=== PATIENT | female | born 1955 | race Caucasian/White ===

== ENCOUNTER 2019-01-09 14:57 | Inpatient (IN) | payer OTHER ==
[2019-01-09] MEDS ORDERED: IPRATROPIUM-ALBUTEROL 3 ML NEB INHALATION STA ×4 (15:20→16:47)
[2019-01-09] MEDS ORDERED: methylPREDNISolone SOD SUCCI 125 MG/2 ML VIAL IV STA (15:20)
[2019-01-09] MEDS ORDERED: SODIUM CHLORIDE 0.9% 1,000 ML IV STA (15:20)
--- NOTE | 2019-01-09 15:23 | ED ---
SOB HPI - General Chief Complaint: Shortness of Breath Stated Complaint: LASHELL Time Seen by Provider: 01/09/19 15:14 Source: patient, RN notes reviewed Mode of arrival: ambulatory Limitations: no limitations - History of Present Illness Initial Comments: This is a 63-year-old female history of asthma who is a smoker usually about one pack per day who states she's had shortness of breath for the past 3-4 days cough with phlegm but she's not sure what color it is she's had chills with this orthopnea and exertional dyspnea. No chest pain palpitations no other symptoms. She states when she gets like this he usually goes from bronchitis into pneumonia. MD Complaint: shortness of breath, cough - Related Data Home Medications Medication Instructions Recorded Confirmed Ibuprofen/Diphenhydramine HCl 1 cap PO HS 01/09/19 01/09/19 [Advil Pm Liqui-Gels] Allergies Allergy/AdvReac Type Severity Reaction Status Date / Time codeine AdvReac Nausea & Verified 01/09/19 15:09 Vomiting fluoxetine [From Prozac] AdvReac Unknown Verified 01/09/19 15:09 Tetracyclines AdvReac Nausea & Verified 01/09/19 15:09 Vomiting Review of Systems ROS Statement: Those systems with pertinent positive or pertinent negative responses have been documented in the HPI. ROS Other: All systems not noted in ROS Statement are negative. Past Medical History Past Medical History: Asthma, Hypertension History of Any Multi-Drug Resistant Organisms: None Reported Past Surgical History: Appendectomy, Back Surgery, Hysterectomy Past Psychological History: Depression Smoking Status: Current every day smoker Past Alcohol Use History: None Reported Past Drug Use History: None Reported General Exam - General Exam Comments Initial Comments: This is a well-developed well-nourished awake alert oriented 3 female Limitations: no limitations General appearance: alert, anxious, in distress Head exam: Present: atraumatic, normocephalic, normal inspection Eye exam: Present: normal appearance, PERRL, EOMI. Absent: scleral icterus, conjunctival injection, periorbital swelling ENT exam: Present: mucous membranes dry Neck exam: Present: normal inspection, full ROM, other (No stridor JVD or b ruits). Absent: tenderness, meningismus, lymphadenopathy Respiratory exam: Present: wheezes, decreased breath sounds Cardiovascular Exam: Present: regular rate, normal rhythm, normal heart sounds. Absent: systolic murmur, diastolic murmur, rubs, gallop, clicks GI/Abdominal exam: Present: soft, normal bowel sounds. Absent: distended, tenderness, guarding, rebound, rigid Extremities exam: Present: normal inspection, full ROM, normal capillary refill. Absent: tenderness, pedal edema, joint swelling, calf tenderness Back exam: Present: normal inspection Neurological exam: Present: alert, oriented X3, CN II-XII intact Psychiatric exam: Present: normal affect, normal mood Skin exam: Present: warm, dry, intact, normal color. Absent: rash Course Vital Signs 01/09/19 01/09/19 01/09/19 15:04 15:49 15:56 Temperature 97.9 F Pulse Rate 88 88 78 Respiratory 20 Rate Blood Pressure 178/90 O2 Sat by Pulse 94 L Oximetry 01/09/19 01/09/19 16:22 16:30 Temperature Pulse Rate 80 84 Respiratory Rate Blood Pressure O2 Sat by Pulse Oximetry - Reevaluation(s) Reevaluation #1: 01/09/19 16:11 The patient on reevaluation states she's feeling no better though on auscultation there is a slight improvement in aeration with some diminution of anterior wheezing. Procedures - Smoking Cessation Time Spent Discussing Smoking Cessation w/Patient (Minutes): 3 Patient Acknowledges Need for Cessation: Yes Medical Decision Making - Medical Decision Making I did discuss findings with patient family members patient will require admission for asthma exacerbation as well as left lower lobe pneumonia and resisting treatment in the emergency department. - Lab Data Result diagrams: 01/09/19 15:47 01/09/19 15:47 Lab Results 01/09/19 01/09/19 01/09/19 Range/Units 15:47 15:47 15:47 WBC 4.0 (3.8-10.6) k/uL RBC 4.81 (3.80-5.40) m/uL Hgb 14.0 (11.4-16.0) gm/dL Hct 41.8 (34.0-46.0) % MCV 86.9 (80.0-100.0) fL MCH 29.1 (25.0-35.0) pg MCHC 33.5 (31.0-37.0) g/dL RDW 14.9 (11.5-15.5) % Plt Count 253 (150-450) k/uL Neutrophils % 63 % Lymphocytes % 23 % Monocytes % 6 % Eosinophils % 4 % Basophils % 2 % Neutrophils # 2.5 (1.3-7.7) k/uL Lymphocytes # 0.9 L (1.0-4.8) k/uL Monocytes # 0.3 (0-1.0) k/uL Eosinophils # 0.1 (0-0.7) k/uL Basophils # 0.1 (0-0.2) k/uL PT (9.0-12.0) sec INR (<1.2) APTT (22.0-30.0) sec Sodium 139 (137-145) mmol/L Potassium 4.1 (3.5-5.1) mmol/L Chloride 104 (98-107) mmol/L Carbon Dioxide 24 (22-30) mmol/L Anion Gap 11 mmol/L BUN 10 (7-17) mg/dL Creatinine 0.91 (0.52-1.04) mg/dL Est GFR (CKD-EPI)AfAm 78 (>60 ml/min/1.73 sqM) Est GFR (CKD-EPI)NonAf 67 (>60 ml/min/1.73 sqM) Glucose 106 H (74-99) mg/dL Calcium 9.2 (8.4-10.2) mg/dL Magnesium 2.2 (1.6-2.3) mg/dL Total Bilirubin 0.7 (0.2-1.3) mg/dL AST 49 H (14-36) U/L ALT 55 H (9-52) U/L Alkaline Phosphatase 124 (38-126) U/L NT-Pro-B Natriuret Pep 54 pg/mL Total Protein 7.7 (6.3-8.2) g/dL Albumin 4.4 (3.5-5.0) g/dL 01/09/19 Range/Units 15:47 WBC (3.8-10.6) k/uL RBC (3.80-5.40) m/uL Hgb (11.4-16.0) gm/dL Hct (34.0-46.0) % MCV (80.0-100.0) fL MCH (25.0-35.0) pg MCHC (31.0-37.0) g/dL RDW (11.5-15.5) % Plt Count (150-450) k/uL Neutrophils % % Lymphocytes % % Monocytes % % Eosinophils % % Basophils % % Neutrophils # (1.3-7.7) k/uL Lymphocytes # (1.0-4.8) k/uL Monocytes # (0-1.0) k/uL Eosinophils # (0-0.7) k/uL Basophils # (0-0.2) k/uL PT 10.1 (9.0-12.0) sec INR 0.9 (<1.2) APTT 25.0 (22.0-30.0) sec Sodium (137-145) mmol/L Potassium (3.5-5.1) mmol/L Chloride (98-107) mmol/L Carbon Dioxide (22-30) mmol/L Anion Gap mmol/L BUN (7-17) mg/dL Creatinine (0.52-1.04) mg/dL Est GFR (CKD-EPI)AfAm (>60 ml/min/1.73 sqM) Est GFR (CKD-EPI)NonAf (>60 ml/min/1.73 sqM) Glucose (74-99) mg/dL Calcium (8.4-10.2) mg/dL Magnesium (1.6-2.3) mg/dL Total Bilirubin (0.2-1.3) mg/dL AST (14-36) U/L ALT (9-52) U/L Alkaline Phosphatase (38-126) U/L NT-Pro-B Natriuret Pep pg/mL Total Protein (6.3-8.2) g/dL Albumin (3.5-5.0) g/dL - EKG Data -: EKG Interpreted by Ca EKG shows normal: sinus rhythm (EKG shows normal sinus rhythm 87 DE interval 208 QRS duration 110 QT since QTC 14/[address]-t wave changes seen. S ome artifact is present.) - Radiology Data Radiology results: report reviewed (Review the imaging reveals left lower lobe infiltrate.), image reviewed Critical Care Time Critical Care Time: Yes Critical Care Time: 35 minutes of critical care time includes initial presentation with history phys ical labs x-rays multiple reevaluation patient responsive therapy discussion with the beta physician Dr. Gunartnam, documentation of the above and admission orders. Disposition Clinical Impression: Acute exacerbation of chronic obstructive airways disease, Adult respiratory distress syndrome, Left lower lobe pneumonia Disposition: ADMITTED IP TO THIS HOSP Condition: Serious Referrals: None,Stated [Primary Care Provider] - 1-2 days
[2019-01-09 16:00] LABS: Basophils # (A) 0.1 k/uL (0-0.2); Basophils % (A) 2 %; Eosinophils # (A) 0.1 k/uL (0-0.7); Eosinophils % (A) 4 %; HCT 41.8 % (34.0-46.0); Lymphocytes # (A) 0.9 k/uL (1.0-4.8); Lymphocytes % (A) 23 %; MCH 29.1 pg (25.0-35.0); MCHC 33.5 g/dL (31.0-37.0); MCV 86.9 fL (80.0-100.0); Mean Platelet Volume 6.9; Monocytes # (A) 0.3 k/uL (0-1.0); Monocytes % (A) 6 %; Neutrophils # (A) 2.5 k/uL (1.3-7.7); Neutrophils % (A) 63 %; Platelet Count 253 k/uL (150-450); RBC 4.81 m/uL (3.80-5.40); RDW 14.9 % (11.5-15.5)
[2019-01-09 16:11] LABS: Albumin 4.4 g/dL (3.5-5.0); Calcium 9.2 mg/dL (8.4-10.2); Magnesium 2.2 mg/dL (1.6-2.3); Potassium 4.1 mmol/L (3.5-5.1); Total Bilirubin 0.7 mg/dL (0.2-1.3); Total Protein 7.7 g/dL (6.3-8.2)
[2019-01-09 16:12] LABS: INR 0.9 (<1.2); Prothrombin Time 10.1 sec (9.0-12.0)
--- NOTE | 2019-01-09 16:29 | XR ---
EXAMINATION TYPE: XR chest 2V DATE OF EXAM: 01/09/2019 COMPARISON: NONE HISTORY: Difficulty breathing, cough TECHNIQUE: Frontal and lateral views of the chest are obtained. FINDINGS: Patchy density present within the left midlung. No evident pneumothorax or pleural effusio n. Cardiac mediastinal silhouette, pulmonary vascularity and ryan within normal limits. The aorta is dense. Prominent lung volume may be indicative of COPD. IMPRESSION: Correlate for possible left lower lobe pneumonia. Follow-up suggested.
[2019-01-09] MEDS ORDERED: MAGNESIUM SULFATE-D5W PMX 1 GM in DEXTROSE/WATER 1 100ML.BAG IVPB ONE (16:45)
[2019-01-09] MEDS ORDERED: PNEUMONIA PROTOCOL UTILIZED 1 EACH MISC PO PRN (16:50)
[2019-01-09] MEDS ORDERED: AZITHROMYCIN 500 MG in SODIUM CHLORIDE 0.9% 250 ML IVPB STA (16:50)
[2019-01-09] MEDS: SODIUM CHLORIDE 0.9% 1,000 ML IV SCH (17:25)
[2019-01-09] MEDS ORDERED: NALOXONE 0.4 MG/ML 1 ML VIAL IV PRN (17:41)
[2019-01-09] MEDS ORDERED: ACETAMINOPHEN TAB 325 MG TAB PO PRN (17:41)
[2019-01-09] MEDS ORDERED: HYDROcodone/APAP 5-325MG 1 EACH TAB PO PRN (17:41)
--- NOTE | 2019-01-09 17:59 | P.HPIM ---
History of Present Illness H&P Date: 01/09/19 Chief Complaint: Shortness of breath, cough 63 year old female with PMH of Asthma and hypertension presents to the emergency room for cough and shortness of breath. Patient reports symptoms of a wet cough, nasal congestion and rhinorrhea for the past 4 days. Patient reports that symptoms were persistent leading into today, which prompted her to come to the emergency room. Patient is unable to produce any sputum. Patient reports intermittent lower extremity swelling, itchy ears and chills that has been ongoing for the same period of time. She denies headache, nausea, vomiting, palpitations, chest pain, changes in urination or bowel habits. Patient denies any dizziness, numbness/weakness/tingling of the extremities. Of note, patient reports smoking 1-1/2 packs of cigarettes daily for the past 50 years. She denies any alcohol or illicit drug use. In the ED, CBC was unremarkable. Coag is panel was negative. CMP showed a glucose 106, AST of 48 and ELT 55. Initial troponin was less than 0.012, EKG showing normal sinus rhythm with prolonged QT. Chest x-ray showing left lower lobe pneumonia. Patient is admitted for COPD exacerbation and treatment of pn eumonia. Pulmonology is on board. Review of Systems All systems: negative Past Medical History Past Medical History: Asthma, Hypertension History of Any Multi-Drug Resistant Organisms: None Reported Past Surgical History: Appendectomy, Back Surgery, Hysterectomy Past Psychological History: Depression Smoking Status: Current every day smoker Past Alcohol Use History: None Reported Past Drug Use History: None Reported Medications and Allergies Home Medications Medication Instructions Recorded Confirmed Type Ibuprofen/Diphenhydramine HCl 1 cap PO HS 01/09/19 01/09/19 History [Advil Pm Liqui-Gels] Allergies Allergy/AdvReac Type Severity Reaction Status Date / Time codeine AdvReac Nausea & Verified 01/09/19 15:09 Vomiting fluoxetine [From Prozac] AdvReac Unknown Verified 01/09/19 15:09 Tetracyclines AdvReac Nausea & Verified 01/09/19 15:09 Vomiting Physical Exam Vitals: Vital Signs Temp Pulse Resp BP Pulse Ox 01/09/19 16:30 84 01/09/19 16:22 80 01/09/19 15:56 78 01/09/19 15:49 88 01/09/19 15:04 97.9 F 88 20 178/90 94 L Intake and Output 01/09/19 01/09/19 01/09/19 06:59 14:59 22:59 Other: Weight 96.207 kg General: [non toxic], [dyspneic, speaking in 2 word sentences], [appears at stated age] Derm: [warm], [dry] Head: [atraumatic], [normocephalic], [symmetric] Eyes: [EOMI], [no lid lag], [anicteric sclera] Mouth: [no lip lesion], [mucus membranes moist] Cardiovascular: [S1S2 reg], [no murmur], [positive posterior tibial pulse bilateral], Lungs: [Decreased breath sounds bilateral with poor air entry, end expiratory wheezing], [no rhonchi, no rales] , [no accessory muscle use] Abdominal: [soft], [ nontender to palpation], [no guarding], [no appreciable organomegaly] Ext: [no gross muscle atrophy], [no edema], [no contractures] Neuro: [ CN II-XI grossly intact], [no focal neuro deficits] Psych: [Alert], [oriented], [appropriate affect] Results CBC & Chem 7: 01/09/19 15:47 01/09/19 15:47 Labs: Abnormal Lab Results - Last 24 Hours (Table) 01/09/19 01/09/19 Range/Units 15:47 15:47 Lymphocytes # 0.9 L (1.0-4.8) k/uL Glucose 106 H (74-99) mg/dL AST 49 H (14-36) U/L ALT 55 H (9-52) U/L Thrombosis Risk Factor Assmnt - Choose All That Apply Any of the Below Risk Factors Present?: Yes Each Factor Represents 1 point: Abnormal pulmonary function (COPD), Obesity (BMI >25) Other Risk Factors: Yes Each Risk Factor Represents 2 Points: Age 61-74 years Thrombosis Risk Factor Assessment Total Risk Factor Score: 4 Thrombosis Risk Factor Assessment Level: Moderate Risk Assessment and Plan Assessment: Assessment and Plan 1. COPD exacerbation likely secondary to community acquired pneumonia 2. Community acquired pneumonia 3. Elevated liver enzymes 1. History of cigarette smoking, likely secondary to pneumonia. Patient is a febrile with no leukocytosis. Influenza negative. Chest x-ray shows concerns for left lower lobe pneumonia. Start DuoNeb treatments 4 times a day scheduled and as needed for shortness of breath and wheezing. Continue Solu-Medrol 60 mg IV every 6 hours. Oxygen per nasal cannula to maintain an oxygen saturation greater than 92%. Start IV antibiotics. Follow pulmonology consult. 2. As seen on chest x-ray. Start IV Rocephin with azithromycin by mouth. Tylenol as needed for fever. Start Mucinex for congestion. Will follow blood culture, sputum culture. Follow chest x-ray in the morning. 3. AST 49, ALTs 55. Unknown etiology. Possible hepatic congestion but less likely due to normal BNP. Will follow echocardiogram results. Patient admitted for COPD exacerbation, supplemental oxygen and for treatment of community acquired pneumonia. Pulmonology is on consult. She is pending c jollyical improvement.
[2019-01-09 19:15] VITALS: BMI 35.3
[2019-01-09] MEDS: IPRATROPIUM-ALBUTEROL 3 ML NEB INHALATION SCH ×2 (20:16→23:36)
[2019-01-09] MEDS: guaiFENesin 600 MG TABLET.ER PO SCH (20:42)
[2019-01-09] MEDS: methylPREDNISolone SOD SUCCI 125 MG/2 ML VIAL IV SCH ×2 (20:42→23:17)
[2019-01-09] MEDS: diphenhydrAMINE 25 MG CAP PO SCH (20:42)
[2019-01-09] MEDS: IBUPROFEN 200 MG TAB PO SCH (20:43)
[2019-01-09] MEDS: cloNIDine HCL 0.1 MG TAB PO PRN (21:35)
[2019-01-10] MEDS: IPRATROPIUM-ALBUTEROL 3 ML NEB INHALATION SCH ×5 (03:51→19:48)
[2019-01-10] MEDS: cloNIDine HCL 0.1 MG TAB PO PRN ×2 (05:32→22:04)
[2019-01-10] MEDS: methylPREDNISolone SOD SUCCI 125 MG/2 ML VIAL IV SCH ×4 (05:32→23:43)
[2019-01-10] MEDS: SODIUM CHLORIDE 0.9% 1,000 ML IV SCH ×2 (05:33→20:56)
[2019-01-10] MEDS: guaiFENesin 600 MG TABLET.ER PO SCH ×2 (07:19→20:55)
[2019-01-10] MEDS: AZITHROMYCIN 500 MG TAB PO SCH (07:21)
--- NOTE | 2019-01-10 08:21 | XR ---
EXAMINATION TYPE: XR chest 2V DATE OF EXAM: 01/10/2019 COMPARISON: 01/09/2019 HISTORY: Shortness of breath TECHNIQUE: Frontal and lateral views of the chest are obtained. FINDINGS: Scattered senescent parenchymal changes noted. Hyperinflation compatible with COPD. There is nodular density left midlung zone. While this may reflect pneumonia nodule of other etiology is not excluded. Recommend CT chest for further evaluation. Heart size is stable. Mediastinal structures are stable and grossly unremarkable. No evidence for hilar prominence. Degenerative changes dorsal spine. IMPRESSION: 1. There is nodular density left midlung zone. While this may reflect pneumonia nodule of other etiol ogy is not excluded. Recommend CT chest for further evaluation.
[2019-01-10 08:27] LABS: Basophils % (A) 0 %; Eosinophils % (A) 0 %; HCT 40.9 % (34.0-46.0); HGB 13.5 gm/dL (11.4-16.0); Lymphocytes # (A) 0.6 k/uL (1.0-4.8); Lymphocytes % (A) 9 %; MCH 29.4 pg (25.0-35.0); MCHC 32.9 g/dL (31.0-37.0); MCV 89.2 fL (80.0-100.0); Mean Platelet Volume 7.1; Monocytes # (A) 0.1 k/uL (0-1.0); Monocytes % (A) 2 %; Neutrophils # (A) 5.5 k/uL (1.3-7.7); Neutrophils % (A) 88 %; Platelet Count 278 k/uL (150-450); RBC 4.58 m/uL (3.80-5.40); RDW 14.8 % (11.5-15.5); WBC 6.3 k/uL (3.8-10.6)
[2019-01-10 08:46] LABS: Anion Gap 13 mmol/L; Blood Urea Nitrogen 11 mg/dL (7-17); Calcium 8.9 mg/dL (8.4-10.2); Carbon Dioxide 19 mmol/L (22-30); Chloride 104 mmol/L (98-107); Glucose 260 mg/dL (74-99); Magnesium 2.2 mg/dL (1.6-2.3); Potassium 4.8 mmol/L (3.5-5.1); Sodium 136 mmol/L (137-145)
--- NOTE | 2019-01-10 09:21 | ECHOF ---
Referral Reason:SOB MEASUREMENTS -------- HEIGHT: 165.1 cm WEIGHT: 96.2 kg BP: 128/54 IVSd: 0.9 cm (0.6 - 1.1) LVIDd: 4.5 cm (3.9 - 5.3) LVPWd: 1.1 cm (0.6 - 1.1) IVSs: 1.7 cm LVIDs: 2.4 cm LVPWs: 1.8 cm IVSd: 1.2 cm (0.6 - 1.1) LVIDd: 3.3 cm (3.9 - 5.3) LVPWd: 1.1 cm (0.6 - 1.1) IVSs: 1.6 cm LVIDs: 2.0 cm LVPWs: 1.3 cm EDV(Teich): 44 ml ESV(Teich): 14 ml EF(Teich): 69 % %FS: 38 % SV(Teich): 31 ml Ao Diam: 3.0 cm (2.0 - 3.7) AV Cusp: 2.1 cm (1.5 - 2.6) LA Diam: 2.5 cm (2.7 - 3.8) MV E Zander: 1.13 m/s MV DecT: 194 ms MV A Zander: 0.22 m/s MV E/A Ratio: 5.11 RAP: 5.00 mmHg RVSP: 10.17 mmHg FINDINGS -------- Sinus rhythm. This was a technically difficult study with suboptimal views. The left ventricular size is normal. Left ventricular wall thickness is normal. Overall left vent ricular systolic function is normal with, an EF between 55 - 60 %. The right ventricle is normal in size. The left atrium was not well visualized. The right atrium was not well visualized. 1.5mg of Definity was utilized for enhancement of images The aortic valve was not well visualized. The mitral valve was not well visualized. The tricuspid valve was not well visualized. The pulmonic valve was not well visualized. The aortic root size is normal. There is no pericardial effusion. CONCLUSIONS -------- 1. Sinus rhythm. 2. This was a technically difficult study with suboptimal views. 3. The left ventricular size is normal. 4. Left ventricular wall thickness is normal. 5. Overall left ventricular systolic function is normal with, an EF between 55 - 60 %. 6. The left atrium was not well visualized. 7. 1.5mg of Definity was utilized for enhancement of images 8. The aortic valve was not well visualized. 9. The mitral valve was not well visualized. 10. The tricuspid valve was not well visualized. 11. The pulmonic valve was not well visualized. 12. The aortic root size is normal. 13. There is no pericardial effusion. DOGGER: Tran Alcocer RDCS
--- NOTE | 2019-01-10 10:33 | P.PN ---
Subjective Progress Note Date: 01/10/19 Principal diagnosis: COPD exacerbation, pneumonia Patient was seen and examined. No acute events overnight. Patient reports improvement in her breathing since admission. She does complain of dyspnea with ambulation to the bathroom. Patient continues to complain of cough as well. She denies any chest pain or palpitations. No nausea or vomiting. No fever or chills. Objective - Vital Signs Vital signs: Vital Signs Temp 97.3 F L 01/10/19 05:36 Pulse 89 01/10/19 08:00 Resp 16 01/10/19 08:00 BP 128/54 01/10/19 06:08 Pulse Ox 94 L 01/10/19 05:36 Intake & Output 01/09/19 01/10/19 01/10/19 18:59 06:59 18:59 Weight 96.207 kg Other: # Voids 4 - Exam General: [non toxic], [breathing nonlabored], [appears at stated age] Derm: [warm], [dry] Head: [atraumatic], [normocephalic], [symmetric] Eyes: [EOMI], [no lid lag], [anicteric sclera] Mouth: [no lip lesion], [mucus membranes moist] Cardiovascular: [S1S2 reg], [no murmur], [positive DP pulse bilateral], Lungs: [Decreased breath sounds bilateral with poor air entry worse on the left side, end expiratory wheezing], [no rhonchi, no rales] , [no accessory muscle use] Abdominal: [soft], [ nontender to palpation], [no guarding], [no appreciable organomegaly] Ext: [no gross muscle atrophy], [no edema], [no contractures] Neuro: [no focal neuro deficits] Psych: [Alert], [oriented], [appropriate affect] - Labs CBC & Chem 7: 01/10/19 06:55 01/10/19 06:55 Labs: Abnormal Lab Results - Last 24 Hours (Table) 01/09/19 01/09/19 01/10/19 Range/Units 15:47 15:47 06:55 Lymphocytes # 0.9 L 0.6 L (1.0-4.8) k/uL Sodium (137-145) mmol/L Carbon Dioxide (22-30) mmol/L Glucose 106 H (74-99) mg/dL AST 49 H (14-36) U/L ALT 55 H (9-52) U/L 01/10/19 Range/Units 06:55 Lymphocytes # (1.0-4.8) k/uL Sodium 136 L (137-145) mmol/L Carbon Dioxide 19 L (22-30) mmol/L Glucose 260 H (74-99) mg/dL AST (14-36) U/L ALT (9-52) U/L Assessment and Plan Assessment: Assessment and Plan 1. COPD exacerbation likely secondary to community acquired pneumonia 2. Community acquired pneumonia 3. Elevated liver enzymes 1. History of cigarette smoking, likely secondary to pneumonia. Patient is a febrile with no leukocytosis. Influenza negative. Chest x-ray shows concerns for left lower lobe pneumonia, possible nodular density seen in the left mid lung recommending CT chest. Continue DuoNeb treatments 4 times a day scheduled and as needed for shortness of breath and wheezing. Continue Solu-Medrol 60 mg IV every 6 hours. Oxygen per nasal cannula to maintain an oxygen saturation greater than 92%. Continue IV antibiotics. Follow pulmonology consult. 2. As seen on chest x-ray. Continue IV Rocephin with azithromycin by mouth. Tylenol as needed for fever. Continue Mucinex for congestion. Will follow blood culture, sputum culture. Will discuss with pulmonology the necessity of CT chest. 3. AST 49, ALTs 55. Unknown etiology. Possible hepatic congestion but less likely due to normal BNP. Echocardiogram shows EF of 55-60%. Follow acute hep panel, lipid panel. Patient admitted for COPD exacerbation, supplemental oxygen and for treatment of community acquired pneumonia. Pulmonology is on consult. She is pending clinical improvement. Likely DC in 1-2 days.
[2019-01-10 11:36] LABS: Glucose,Whole Blood 272 mg/dL (75-99)
[2019-01-10] MEDS ORDERED: RX INFO: IV CONTRAST WAS GIVEN 1 EACH MISC MISCELLANE PRN (12:06)
[2019-01-10] MEDS: INSULIN ASPART (NovoLOG) 100 UNIT/ML VIAL SQ SCH ×3 (12:27→20:57)
--- NOTE | 2019-01-10 13:20 | CT ---
EXAMINATION TYPE: CT chest w con DATE OF EXAM: 01/10/2019 COMPARISON: None HISTORY: Abnormal CXR per patient CT DLP: 491.3 mGycm Automated exposure control for dose reduction was used. CONTRAST: CT scan of the chest is performed with IV Contrast, patient injected with 100 mL of Isovue 300. FINDINGS: LUNGS: Spiculated mass within the region of the lingula measures 2.1 x 1.9 cm. Minimal pleural extens ion noted. No additional nodules appreciated. Linear parenchymal scarring right middle lobe as well a s left lung base. No focal consolidation. MEDIASTINUM: AP window lymph node measures 10.4 mm. No additional adenopathy greater than 1 cm. No pericardial effusion is seen. Thoracic aorta is of normal caliber. The heart is not enlarged. UPPER ABDOMEN: Fatty liver as well as cholelithiasis. OTHER: No additional significant abnormality is seen. IMPRESSION: 1. Spiculated lingular mass. 2. AP window lymph node measures 10.4 mm. No additional adenopathy greater than 1 cm.
[2019-01-10] MEDS ORDERED: IPRATROPIUM-ALBUTEROL 3 ML NEB INHALATION PRN (14:42)
--- NOTE | 2019-01-10 16:06 | CONS ---
CONSULTATION DATE OF SERVICE: 01/10/2019 This is a consultation dated January 10, 2019 This is a 63-year-old smoker with history Of COPD/asthma. The patient presented to the emergency room where she saw Dr. Anand Turner. She apparently came with complaints of increasing shortness of breath. In addition, she was coughing and producing phlegm and wheezing. She also had chills without fever. She denies any chest pain or chest discomfort. There were no palpitations. No nausea, vomiting or diarrhea. She states that she is down to 4 to 6 cigarettes a day. She has been smoking for many years. She apparently was hospitalized in the distant past at [facility]. She is hoping that Dr. Martinez will take her back as a patient. She used to see Dr. Martinez some 12 years ago, but she lost her insurance in the divorce and she never really has been seeing any doctor in the last 12 years or so. The only inhaler she has is a Ventolin HFA inhaler. Not sure where she actually got it. She does smoke as I mentioned above. The patient was sitting at the bedside. She was playing some sort of video game when we walked into the room. Some family members were there before we came into the room and they left as we were going in to see the patient. HOME MEDICATIONS: Include primarily ibuprofen and a rescue inhaler. ALLERGIES: INCLUDE PROZAC AND TETRACYCLINES. MEDICAL HISTORY: Is apparently positive for hypertension, although she takes no medications for hypertension and COPD/asthma. The only medication she really takes is Ventolin and Motrin. SURGICAL HISTORY: Includes appendectomy, back surgery, and hysterectomy. SOCIAL HISTORY: Positive for ongoing tobacco use. She denies any alcohol use or illicit drug use. Family history is not mentioned. REVIEW OF SYSTEMS: Constitutional: Negative. Neurologic: Negative. HEENT negative. Cardiovascular negative. PULMONARY: Shortness of breath. Chest tightness and wheezing. Cough and phlegm production. GI negative: negative: Rheumatologic negative. Immunologic negative and endocrinologic negative. PHYSICAL EXAMINATION: Current vital signs include a temperature 97.3, heart rate 78, respiratory rate 16, blood pressure 171/76, mean 107, room-air saturation 96%. Appears in no acute distress. No audible wheezing. No use of accessory muscles. No conversational dyspnea. HEENT examination is grossly unremarkable. NECK: Supple. Full range of motion. No adenopathy or thyromegaly. No neck vein distention. Cardiovascular examination reveals regular rhythm rate. Heart rate 78. S1, S2 normal. No S3, S4, murmur. LUNGS: Reveal occasional expiratory rhonchi and wheezes. Breath sounds are diminished. Slight prolongation on forced maneuver. No crackles. ABDOMEN: Obese. Bowel sounds are heard. Extremities are intact. No cyanosis, clubbing, or edema. Skin without rash. Neurologic examination is brief but nonfocal. LABS: Reviewed. White count 6.3, hemoglobin 13.5, hematocrit 40.9, platelet count 378,000. PT/INR PTT all normal. Sodium 136, potassium 4.8, chloride 104, CO2 of 19, anion gap is 13, BUN and creatinine were 11 and 0.77, sugar 272, AST 49, ALT 55. Influenza studies were negative. Troponin was less than 0.012. N terminal proBNP was only 54. Two chest x-rays show changes of COPD and vague infiltrate/abnormality in the left mid lung. We ordered a CT scan which shows spiculated mass in the lingula. It is about 21 x 18 mm in size. There is one 11 mm lymph node, but other than that the rest of the mediastinum and hilar areas look to be normal. The mass itself appears to be early bronchogenic carcinoma as it is somewhat spiculated. Medications are reviewed. We will make sure the patient is on appropriate medications including an oral antibiotic, steroid, updrafts, and Pulmicort along with formoterol. ASSESSMENT: 1. Chronic obstructive pulmonary disease exacerbation complicated by purulent tracheobronchitis, without alina pneumonia. 2. Ongoing tobacco use with nicotine addiction. 3. Spiculated lingular mass measuring about 21 x 18 mm in size and likely representing a bronchogenic carcinoma. 4. History of hypertension, although patient is not on any blood pressure medications. 5. No medical treatments for at least 12 years. 6. Multiple previous surgeries. PLAN: Please see my orders. Additional recommendations and suggestions are forthcoming. We will likely recommend outpatient PET scan. Prognosis is guarded. Patient continues to smoke. Should have a nicotine patch. I will review the medications and make appropriate adjustments. The patient is currently on ceftriaxone and Zithromax and she could probably be managed just with an oral antibiotic. Please see my orders. Follow up in the office post discharge. We will let her know of the findings on CT scan either later today or tomorrow. MMMABELL / IJN: [id number] /
[2019-01-10 17:01] LABS: Glucose,Whole Blood 203 mg/dL (75-99)
[2019-01-10] MEDS: SYMBICORT 160-4.5 MCG INHALER INHALATION SCH (19:47)
[2019-01-10 20:12] LABS: Glucose,Whole Blood 303 mg/dL (75-99)
[2019-01-10] MEDS: diphenhydrAMINE 25 MG CAP PO SCH (20:56)
[2019-01-10] MEDS: IBUPROFEN 200 MG TAB PO SCH (20:56)
[2019-01-10] MEDS ORDERED: INSULIN ASPART (NovoLOG) 100 UNIT/ML VIAL SQ ONE (23:10)
[2019-01-10 23:15] LABS: Glucose,Whole Blood 253 mg/dL (75-99)
[2019-01-11 04:11] LABS: Glucose,Whole Blood 204 mg/dL (75-99)
[2019-01-11] MEDS: cloNIDine HCL 0.1 MG TAB PO PRN (05:21)
[2019-01-11] MEDS: methylPREDNISolone SOD SUCCI 125 MG/2 ML VIAL IV SCH (05:23)
[2019-01-11] MEDS: SODIUM CHLORIDE 0.9% 1,000 ML IV SCH (05:44)
[2019-01-11 07:08] LABS: Glucose,Whole Blood 201 mg/dL (75-99)
[2019-01-11] MEDS: SYMBICORT 160-4.5 MCG INHALER INHALATION SCH (07:11)
[2019-01-11] MEDS: IPRATROPIUM-ALBUTEROL 3 ML NEB INHALATION SCH ×2 (07:14→11:02)
[2019-01-11] MEDS: INSULIN ASPART (NovoLOG) 100 UNIT/ML VIAL SQ SCH ×2 (08:25→13:07)
[2019-01-11] MEDS: guaiFENesin 600 MG TABLET.ER PO SCH (08:25)
[2019-01-11] MEDS: AZITHROMYCIN 500 MG TAB PO SCH (08:25)
[2019-01-11 09:04] LABS: Cholesterol 223 mg/dL (<200); HDL Cholesterol 38 mg/dL (40-60); LDL Cholesterol,Calculated 137 mg/dL (0-99); Triglycerides 238 mg/dL (<150)
[2019-01-11 11:19] LABS: Glucose,Whole Blood 266 mg/dL (75-99)
--- NOTE | 2019-01-11 12:51 | P.PN ---
Subjective Progress Note Date: 01/11/19 Principal diagnosis: Acute exacerbation of chronic obstructive pulmonary disease complicated by purulent tracheobronchitis. The patient is seen today in follow-up on the regular medical floor. She is awake and alert in no acute distress. She's been up ambulating in her room wi thout complications. No worsening shortness of breath cough or congestion. She is maintaining O2 saturations in the 90s on room air. She's been afebrile. Somewhat hypertensive. Blood cultures reveal no growth. She is continued on DuoNeb inhalations, Symbicort, IV Solu-Medrol, empiric antibiotics in the form of azithromycin. Computed tomography scan of the chest did reveal a 2.1 x 1.9 cm spiculated mass in the lingula. Objective - Vital Signs Vital signs: Vital Signs Temp 97.5 F L 01/11/19 05:00 Pulse 70 01/11/19 08:30 Resp 16 01/11/19 08:00 BP 174/94 01/11/19 08:30 Pulse Ox 91 L 01/11/19 05:00 Intake & Output 01/10/19 01/11/19 01/11/19 18:59 06:59 18:59 Intake Total 590 Balance 590 Intake: Oral 590 Other: # Voids 3 2 - Exam GENERAL EXAM: Alert, active, comfortable in no apparent distress. On room air. HEAD: Normocephalic. EYES: Normal reaction of pupils, equal size. NOSE: Clear with pink turbinates. THROAT: No erythema or exudates. NECK: No masses, no JVD. CHEST: No chest wall deformity. LUNGS: Equal air entry with end expiratory wheeze, diminished. CVS: S1 and S2 normal with no audible murmur, regular rhythm. ABDOMEN: No hepatosplenomegaly, normal bowel sounds, no guarding or rigidity. SPINE: No scoliosis or deformity SKIN: No rashes CENTRAL NERVOUS SYSTEM: No focal deficits, tone is normal in all 4 extremities. EXTREMITIES: There is no peripheral edema. No clubbing, no cyanosis. Peripheral pulses are intact. - Labs CBC & Chem 7: 01/10/19 06:55 01/10/19 06:55 Labs: Abnormal Lab Results - Last 24 Hours (Table) 01/10/19 01/10/19 01/10/19 Range/Units 17:00 20:11 23:04 POC Glucose (mg/dL) 203 H 303 H 253 H (75-99) mg/dL Triglycerides (<150) mg/dL Cholesterol (<200) mg/dL LDL Cholesterol, Calc (0-99) mg/dL HDL Cholesterol (40-60) mg/dL 01/11/19 01/11/19 01/11/19 Range/Units 04:09 07:05 08:35 POC Glucose (mg/dL) 204 H 201 H (75-99) mg/dL Triglycerides 238 H (<150) mg/dL Cholesterol 223 H (<200) mg/dL LDL Cholesterol, Calc 137 H (0-99) mg/dL HDL Cholesterol 38 L (40-60) mg/dL 01/11/19 Range/Units 11:16 POC Glucose (mg/dL) 266 H (75-99) mg/dL Triglycerides (<150) mg/dL Cholesterol (<200) mg/dL LDL Cholesterol, Calc (0-99) mg/dL HDL Cholesterol (40-60) mg/dL Microbiology - Last 24 Hours (Table) 01/09/19 15:47 Blood Culture - Preliminary Blood No Growth after 24 hours Assessment and Plan Assessment: Impression: #1 Acute exacerbation of chronic obstructive pulmonary disease, complicated by. Tracheobronchitis. #2 Chronic and ongoing tobacco dependence. #3 Spiculated mass within the region of the lingula measuring 2.1 x 1.9 cm. The plan is for biopsy in the outpatient setting. #4 Hypertension. #5 Hyperglycemia, steroid induced. #6 No healthcare follow-up in the past 12 years. Plan: The patient was seen and evaluated by Dr. Olivas. We will plan for PET scan in the outpatient setting and probable navigational bronchoscopy with biopsy of the spiculated mass of the lingula. This was discussed with the patient at the bedside. She is agreeable to the plan. She could be discharged home from the pulmonary standpoint. Complete a course of antibiotics. Continue with bronchodilators. We'll discontinue steroids for now. Blood pressure control. Glucose control. She'll follow-up in our office in 1 week's time. She is encouraged to call sooner with any recurrence of symptoms or other questions or concerns. I, the cosigning physician, performed a history & physical examination of the patient. Lungs sounds faint end expiratory wheeze, diminished. Maintaining good O2 saturations in the 90s on room air. I discussed the assessment and plan of care with my nurse practitioner, Cora Casarez. I attest to the above note as dictated by her.
[2019-01-11 13:24] VITALS: BP 184/81; RESP 18; TEMP 97.4
--- NOTE | 2019-01-11 14:24 | P.DS ---
Providers Date of admission: 01/09/19 16:50 Expected date of discharge: 01/11/19 Attending physician: Goldie Engel MD Consults: 01/09/19 17:44 Consult Physician Stat Consulting Provider: Silvia Laguerre Consult Reason/Comments: COPD exacerbation, LLL PNA Do you want consulting provider notified?: Yes Primary care physician: Stated None Hospital Course: 63 year old female with PMH of Asthma and hypertension presents to the emergency room for cough and shortness of breath. Patient reports symptoms of a wet cough, nasal congestion and rhinorrhea for the past 4 days. Patient reports that symptoms were persistent leading into today, which prompted her to come to the emergency room. Patient is unable to produce any sputum. Patient reports intermittent lower extremity swelling, itchy ears and chills that has been ongoing for the same period of time. She denies headache, nausea, vomiting, palpitations, chest pain, changes in urination or bowel habits. Patient denies any dizziness, numbness/weakness/tingling of the extremities. Of note, patient reports smoking 1-1/2 packs of cigarettes daily for the past 50 years. She denies any alcohol or illicit drug use. In the ED, CBC was unremarkable. Coag is panel was negative. CMP showed a glucose 106, AST of 48 and ELT 55. Initial troponin was less than 0.012, EKG showing normal sinus rhythm with prolonged QT. Chest x-ray showing left lower lobe pneumonia. Patient is admitted for COPD exacerbation and treatment of pneumonia. Pulmonology is on board. with regard to her COPD exacerbation was thought to be secondary to her history of severe smoking and secondary to pneumonia. Patient was afebrile with no leukocytosis. Influenza test was negative. Chest x-ray showed concerns for left lower lobe pneumonia and a possible nodular density seen in the left mid lung, recommending CT of the chest. Patient was treated with DuoNeb treatments 4 times a day scheduled and as needed for shortness of breath and wheezing. Patient was initially started on Solu-Medrol IV which was discontinued prior to discharge. She was given oxygen per nasal cannula to maintain an oxygen saturation greater than 92%. Patient was initially started on IV Rocephin and azithromycin by mouth for treatment of community acquired pneumonia. Pulmonology was consulted and recommended adding Mucinex for congestion and to obtain a CT of the chest.CT of the chest shows a spiculated lung mass that is suspicious for bronchogenic carcinoma. Pulmonology recommended outpatient follow-up in order to obtain biopsy and additional imaging studies. Patient was seen and examined prior to discharge. No acute events overnight. Patient reports improvement in her breathing. She continues to complain a cough productive of clear sputum. She denies any chest pain or palpitations. No nausea or vomiting. No fever or chills. Results discussed with son and patient at bedside. General: [non toxic], [breathing nonlabored], [appears at stated age] Derm: [warm], [dry] Head: [atraumatic], [normocephalic], [symmetric] Eyes: [EOMI], [no lid lag], [anicteric sclera] Mouth: [no lip lesion], [mucus membranes moist] Cardiovascular: [S1S2 reg], [no murmur], [positive DP pulse bilateral], Lungs: [Decreased breath sounds bilateral ], [no rhonchi, no rales] , [no accessory muscle use] Abdominal: [soft], [ nontender to palpation], [no guarding], [no appreciable organomegaly] Ext: [no gross muscle atrophy], [no edema], [no contractures] Neuro: [no focal neuro deficits] Psych: [Alert], [oriented], [appropriate affect] Assessment and Plan 1. COPD exacerbation likely secondary to community acquired pneumonia 2. Spiculated lung mass likely bronchogenic carcinoma 3. Community acquired pneumonia 4. Hyperlipidemia 5. Elevated liver enzymes 1. History of cigarette smoking, likely secondary to pneumonia. Patient is afebrile with no leukocytosis. Influenza negative. Chest x-ray shows concerns for left lower lobe pneumonia, possible nodular density seen in the left mid lung recommending CT chest. Continue DuoNeb treatments 4 times a day scheduled and as needed for shortness of breath and wheezing. Continue Solu-Medrol 60 mg IV every 6 hours. Oxygen per nasal cannula to maintain an oxygen saturation greater than 92%. Continue IV antibiotics. Follow pulmonology consult. 2. CT of the chest shows spiculated lingular mass and lymph node measuring 10.4 mm. Given her history of smoking, this is likely bronchogenic carcinoma until proven otherwise. Pulmonology recommendations appreciated, recommends outpatient follow-up for biopsy and further imaging studies. 3. As seen on chest x-ray. Continue IV Rocephin with azithromycin by mouth. Tylenol as needed for fever. Continue Mucinex for congestion. blood culture prelim negative at 24 hours. 4. Lipid panel shows total cholesterol 223, triglyceride 238, LDL 137. Start Lipitor 40 mg by mouth at bedtime. 5. AST 49, ALTs 55. Likely secondary to hyperlipidemia. Possible hepatic congestion but less likely due to normal BNP. Echocardiogram shows EF of 55- 60%. This complex discharge took greater than 30 minutes. Pertinent Studies: chest x-ray, echocardiogram, chest CT Patient Condition at Discharge: Serious Plan - Discharge Summary Discharge Rx Participant: No New Discharge Prescriptions: New Budesonide-Formot 160-4.5 Mcg [Symbicort 160-4.5 Mcg Inhaler] 2 puff INHALATION RT-BID #1 inhaler Albuterol Inhaler [Ventolin Hfa Inhaler] 1 - 2 puff INHALATION RT-Q6H PRN #1 inhaler PRN Reason: Shortness Of Breath Or Wheezing Azithromycin [Zithromax] 500 mg PO DAILY #3 tab Atorvastatin [Lipitor] 40 mg PO HS #30 tablet Continue Ibuprofen/Diphenhydramine HCl [Advil Pm Liqui-Gels] 1 cap PO HS Discharge Medication List Ibuprofen/Diphenhydramine HCl [Advil Pm Liqui-Gels] 1 cap PO HS 01/09/19 [History] Albuterol Inhaler [Ventolin Hfa Inhaler] 1 - 2 puff INHALATION RT-Q6H PRN #1 inhaler 01/11/19 [Rx] Atorvastatin [Lipitor] 40 mg PO HS #30 tablet 01/11/19 [Rx] Azithromycin [Zithromax] 500 mg PO DAILY #3 tab 01/11/19 [Rx] Budesonide-Formot 160-4.5 Mcg [Symbicort 160-4.5 Mcg Inhaler] 2 puff INHALATION RT-BID #1 inhaler 01/11/19 [Rx] Follow up Appointment(s)/Referral(s): Mayur lOivas DO [Doctor of Osteopathic Medicine] - 1 Week None,Stated [Primary Care Provider] - 1-2 days Activity/Diet/Wound Care/Special Instructions: Diet: Low salt diet, HEART healthy FU with PCP within 1-2 days of discharge. FU with Pulmonology Dr. Basha within 1 week of discharge. Please take all medications as advised. Discharge Disposition: HOME SELF-CARE
[2019-01-11 15:06] VITALS: PULSE 96
[2019-01-11 18:28] LABS: Hepatitis A Antibody IgM Non-Reactive (Non-Reactive); Hepatitis B Core IgM Non-Reactive (Non-Reactive)
[2019-01-11 19:32] LABS: Hemoglobin A1C 7.1 % (4.0-6.0)
== END 2019-01-11 15:35 | disposition home or self-care (01) | DRG 194 ==
LOC: EC 14:57 → 3NMEDONC 16:50
PROVIDERS: ADMIT Family Medicine; ATTEND Family Medicine
DX: J18.1 Lobar pneumonia, unspecified organism (principal); J44.0 Chronic obstructive pulmonary disease with (acute) lower respiratory infection; J44.1 Chronic obstructive pulmonary disease with (acute) exacerbation; C34.92 Malignant neoplasm of unspecified part of left bronchus or lung; E78.5 Hyperlipidemia, unspecified; R74.8 Abnormal levels of other serum enzymes; R73.9 Hyperglycemia, unspecified; T38.0X5A Adverse effect of glucocorticoids and synthetic analogues, initial encounter; I10 Essential (primary) hypertension; F17.210 Nicotine dependence, cigarettes, uncomplicated; Z71.6 Tobacco abuse counseling; Z79.1 Long term (current) use of non-steroidal anti-inflammatories (NSAID); Z90.710 Acquired absence of both cervix and uterus; Z90.49 Acquired absence of other specified parts of digestive tract; Z86.59 Personal history of other mental and behavioral disorders; Z88.1 Allergy status to other antibiotic agents; Z88.5 Allergy status to narcotic agent; Z88.8 Allergy status to other drugs, medicaments and biological substances
CPT/HCPCS: 36415; 71046; 71260; 80048; 80053; 80061; 80074; 83036; 83735; 83880; 84484; 85025; 85610; 85730; 87040; 87502; 93005; 93306; 94640; 96361; 96365; 96375; 99291

== ENCOUNTER 2019-01-14 15:01 | Emergency (ER) | payer OTHER ==
[2019-01-14 15:06] VITALS: TEMP 98.1
[2019-01-14] MEDS ORDERED: cloNIDine HCL 0.1 MG TAB PO STA (15:38)
--- NOTE | 2019-01-14 15:43 | ED ---
General Adult HPI - General Chief complaint: Recheck/Abnormal Lab/Rx Stated complaint: High BP Time Seen by Provider: 01/14/19 15:20 Source: patient, family, RN notes reviewed, old records reviewed Mode of arrival: ambulatory Limitations: no limitations - History of Present Illness Initial comments: Chief complaint history of present illness this is a 63-year-old female here with her daughter. The patient reports showed he was recently in hospital and treated with IV antibiotics for pneumonia and sent home on antibiotics. Patient reports that she's had a history of high blood pressure but has not been on medications since losing her medical coverage over 12 years ago. She had a blood pressure check at home by her daughter was 205/90. In emergency room at 183/92. The patient is not symptomatic. Upon questioning though the patient does report with deep breathing some discomfort to the left side of the chest. Repeat chest x-ray be done. No complaint of numbness tingling or any neuro deficits. Denies fever. Finished antibiotics today. - Related Data Home Medications Medication Instructions Recorded Confirmed Ibuprofen/Diphenhydramine HCl 1 cap PO HS 01/09/19 01/14/19 [Advil Pm Liqui-Gels] Docusate [Colace] 200 mg PO HS 01/14/19 01/14/19 Previous Rx's Medication Instructions Recorded Albuterol Inhaler [Ventolin Hfa 1 - 2 puff INHALATION RT-Q6H PRN 01/11/19 Inhaler] #1 inhaler Atorvastatin [Lipitor] 40 mg PO HS #30 tablet 01/11/19 Budesonide-Formot 160-4.5 Mcg 2 puff INHALATION RT-BID #1 inhaler 01/11/19 [Symbicort 160-4.5 Mcg Inhaler] Lisinopril [Prinivil] 5 mg PO DAILY #30 tablet 01/14/19 Allergies Allergy/AdvReac Type Severity Reaction Status Date / Time codeine AdvReac Nausea & Verified 01/14/19 16:09 Vomiting fluoxetine [From Prozac] AdvReac Unknown Verified 01/14/19 16:09 Tetracyclines AdvReac Nausea & Verified 01/14/19 16:09 Vomiting Review of Systems ROS Statement: Those systems with pertinent positive or pertinent negative responses have been documented in the HPI. Review of systems. No headache or visual acuity changes denies a sore throat the sided chest discomfort upon questioning with deep breathing. Denies cough ing. Otherwise no pain. No GI/ or neuro deficits. Family reports that she's been having and looks normal to her. All systems reviewed. The patient's past medical problems significant for asthma COPD and hypertension. As noted above the patient has not been taking her blood pressure pills for over 12 years because she lost her insurance. She now has insurance be following up with Dr. Martinez. The patient's surgeries include appendectomy, back surgery for discectomy and lumbar spine. And a partial hysterectomy. Family history significant for a grandmother with glandular cancer, another grandmother had breast cancer. Father had had coronary artery disease. Patient reports that she smoked up to one week ago. Encouraged to continue abstinence from coughing. Denies alcohol use. Patient reports ALLERGIES to codeine, fluoxetine and tetracyclines. ROS Other: All systems not noted in ROS Statement are negative. Past Medical History Past Medical History: Asthma, COPD, Hypertension History of Any Multi-Drug Resistant Organisms: None Reported Past Surgical History: Appendectomy, Back Surgery, Hysterectomy Past Psychological History: Depression Smoking Status: Former smoker Past Alcohol Use History: None Reported Past Drug Use History: None Reported - Past Family History Mother Family Medical History: Congestive Heart Failure (CHF), Diabetes Mellitus General Exam - General Exam Comments Initial Comments: General: The patient is awake and alert, in no distress, and does not appear acutely ill. Patient's blood pressure was elevated at home and systolic greater than 200. Emergency room was 183/92. The patient is otherwise asymptomatic and has no other complaints other than some discomfort to her left side of her chest when she takes a deep breath. Recently treated for pneumonia. Last antibiotic was taken today. Vital signs shows temperature 98.1 pulse 95 respiratory rate 18 pulse ox 90% room air blood pressure 183/92. Eye: Pupils are equal, round and reactive to light, extra-ocular movements are intact; there is normal conjunctiva bilaterally. No signs of icterus. Ears, nose, mouth and throat: There are moist mucous membranes and no oral lesions. Neck: The neck is supple, there is no tenderness, no anterior cervical lymphadenopathy, thyroid not enlarged. Cardiovascular: There is a regular rate and rhythm. No murmur, rub or gallop is appreciated. Respiratory: Lungs are clear to auscultation, respirations are non-labored, breath sounds are equal. No wheezes, stridor, rales, or rhonchi. Left-sided chest discomfort with deep breathing. Recent history of left lower lobe pneumonia treated in hospital and at home. Last antibiotic was taken today. Gastrointestinal: Soft, non-distended, non-tender abdomen without masses or organomegaly noted. There is no rebound or guarding present. No CVA tenderness. Bowel sounds are unremarkable. Back: There is no tenderness to palpation in the midline. There is no obvious deformity. No rashes noted. Musculoskeletal: Normal ROM, no tenderness, There is no pedal edema. There is no calf tenderness or swelling. Sensation intact. Neurological: CN II-XII intact, There are no obvious motor or sensory deficits. Coordination appears grossly intact. Speech is normal. No complaint of dizziness or weakness. Skin: Skin is warm and dry and no rashes or lesions are noted. Psychiatric: Cooperative, Limitations: no limitations Course Vital Signs 01/14/19 15:02 Temperature 98.1 F Pulse Rate 95 Respiratory 18 Rate Blood Pressure 183/92 O2 Sat by Pulse 98 Oximetry Medical Decision Making - Medical Decision Making Medical decision making; this is a 63-year-old female here with her daughter. On hospital last week for treatment of pneumonia chest x-ray that demonstrated a 2.6 mm nodule. She has follow-up with the general purchasing agent for evaluation as this is highly considered to be a neoplasm. The patient presents today because of elevated blood pressure at home of a systolic of greater than 200. In emergency room was 183/92. The patient was given had breast 0.1 by mouth, patient had no symptoms or symptomatology suggestive of any neuro deficits. Chest x-ray read demonstrates a 2.6 cm nodule. The remainder the lungs were otherwise clear per radiologist Dr. Gonsalez This chest x-ray was repeated because the patient reports she had discomfort to deep breath. The patient will be discharged on blood pressure medication to take daily until she follows up with her new family physician Dr. Martinez. Advised to continue t aking blood pressure checks and rechecks as needed return emergency room as needed. Blood pressure is 159/86. The patient be started on lisinopril 5 mg daily. Patient will be seeing her family doctor within the week. She also be seeing a general purchasing agent concerning her pulmonary nodule. Disposition Clinical Impression: Essential hypertension, benign, Pulmonary nodule, left Disposition: HOME SELF-CARE Condition: Fair Additional Instructions: Take lisinopril, one pill daily. Check her blood pressure frequently. Return emergency room as needed. Follow-up with your new family doctor, Dr. Mratinez as well as [facility] pulmonology referral. Prescriptions: Lisinopril [Prinivil] 5 mg PO DAILY #30 tablet Is patient prescribed a controlled substance at d/c from ED?: No Referrals: Darren Martinez MD [Primary Care Provider] - 1-2 days Time of Disposition: 17:04
--- NOTE | 2019-01-14 16:37 | XR ---
EXAMINATION TYPE: XR chest 2V DATE OF EXAM: 01/14/2019 COMPARISON: 01/10/2019 HISTORY: Left-sided chest pain TECHNIQUE: Frontal and lateral views of the chest are obtained. FINDINGS: Left pulmonary nodule is redemonstrated measuring approximately 2.6 cm. Remainder the lung s are clear. Cardiomediastinal silhouette is within normal limits. Osseous structures are grossly int act. Mild multilevel degenerative changes of the spine are seen. IMPRESSION: Redemonstration of the patient's known highly suspicious left pulmonary nodule that shou ld be considered neoplasm until proven otherwise.
[2019-01-14 18:01] VITALS: BP 153/90; PULSE 73; RESP 18
== END 2019-01-14 18:01 | disposition home or self-care (01) ==
LOC: EC 15:01
DX: I10 Essential (primary) hypertension (principal); R91.1 Solitary pulmonary nodule; Z87.891 Personal history of nicotine dependence; Z79.899 Other long term (current) drug therapy; Z88.5 Allergy status to narcotic agent; Z88.1 Allergy status to other antibiotic agents; Z88.8 Allergy status to other drugs, medicaments and biological substances
CPT/HCPCS: 71046; 99283

== ENCOUNTER → 2019-02-05 | Outpatient (CLI) | payer OTHER ==
--- NOTE | 2019-02-06 15:52 | PE ---
EXAMINATION TYPE: PET CT fusion skull to thigh DATE OF EXAM: 02/05/2019 COMPARISON: CT chest 09/21/2019 Prior PET/CT: None HISTORY: Solitary pulmonary nodule TECHNIQUE: Following the intravenous administration of 13.341 mCi of F-18 FDG, whole body images are performed from the skull base to the midthigh. Images are reviewed on the computer in the coronal, axial, and sagittal planes. Reconstructed rotating images are created on independent workstation and reviewed on the computer. A localization and attenuation correction CT is performed in conjunction with the PET scan. DLP: 473.22 mGycm SCAN: Initial Blood glucose: 118 mg/dL Average Mediastinum SUV: 1.85 Average Liver SUV: 1.05 FINDINGS: NECK: No abnormal uptake THORAX: A lateral aortopulmonic window lymph node has an SUV value 2.51. PET image 85. A right hilar small lymph node has an SUV value of 2.23. This could be metastatic disease or inflammatory. There is focal radiotracer accumulation within the periphery of the left midlung. This has an SUV nenita ue of 6.3 compatible with neoplasm. This area corresponds to the nodular density within the lingula. ABDOMEN: No abnormal uptake. There is along segments of colon with radiotracer accumulation PELVIS: No abnormal uptake OSSEOUS STRUCTURES: No abnormal uptake LOCALIZATION CT: Small lymph nodes are the mediastinum. The lung mass lingula measures 2.4 x 1.6 cm i n size. Coronary artery calcification is noted. Splenule is present. Cholelithiasis present. Kidneys appear small bilaterally. Diverticular changes are within the sigmoid colon. No obvious colonic wall thickening is evident. COMPARISON: The enlarged adenopathy in the nodule within the lingula present on the comparison study. IMPRESSION: 1. Focal solitary nodule within the periphery of the left lower lung likely within the lingula with a n SUV value of 6.3 compatible with neoplasm. 2. There are more subtle areas of radiotracer accumulation within the left hilar and lateral aortic p ulmonic window nodes suspicious for metastatic disease 3. Extensive uptake through the colon. Wall thickening and adjacent inflammatory changes are not iden tified. This may be physiologic.
== END ==
LOC: RADPETMAIN 12:18
PROVIDERS: ATTEND Internal Medicine Critical Care Medicine
DX: R91.8 Other nonspecific abnormal finding of lung field (principal)
CPT/HCPCS: 78815; A9552

== ENCOUNTER 2019-02-24 09:29 | Day surgery (SDC) | payer OTHER ==
[2019-02-22 15:39] VITALS: BMI 35.2
[~2019-02-24 09:29] MED LIST: ALBUTEROL NEB (CONC) 2.5 MG/0.5 ML INHALATION ONE; ATROPINE SULFATE 0.4 MG/ML 1 ML VIAL IM ONE; DEXAMETHASONE SOD PHOSPHATE 10 MG/ML 1 ML VIAL IV ONE; HYDROmorphone 0.5 MG/0.5 ML SYRINGE IVP PRN; LACTATED RINGERS 1,000 ML IV SCH; LIDOCAINE 1% 20 ML VIAL (10MG/ML) FOR IV START INTRADERMA PRN; LIDOCAINE 2% (PF) 20 MG/ML 10 ML AMP INHALATION ONE; LIDOCAINE VISCOUS 300 MG/15 ML CUP MUCOUS MEM ONE; MIDAZOLAM (PF) 2 MG/2 ML VIAL IV PRN; ONDANSETRON 4 MG/2 ML VIAL IVP ONE; SCOPOLAMINE 1.5MG/72HR PATCH TRANSDERM ONE; SODIUM CHLORIDE 0.9% 1,000 ML IV SCH
[2019-02-24 09:54] VITALS: RESP 16
[2019-02-24 10:09] LABS: Glucose,Whole Blood 144 mg/dL (75-99)
--- NOTE | 2019-02-24 11:08 | CT ---
EXAMINATION TYPE: CT Chest wo con Veran Protocol DATE OF EXAM: 02/24/2019 COMPARISON: 01/10/2019 CT chest and PET/CT dated 02/05/2019 HISTORY: Pre bronchoscopy veran procedure CT DLP: 575 mGycm Automated exposure control for dose reduction was used. FINDINGS: LUNGS: There is redemonstration of a lingular spiculated mass measuring 2.3 x 1.6 x 2.1 cm in anterio r posterior by transverse by craniocaudal dimension. There is minimal interval growth from the prior. Again there is extension to the pleural surface. Right middle lobe atelectasis has resolved in the i nterim. Very minimal bibasilar dependent atelectasis is seen. No new pulmonary nodules are noted. MEDIASTINUM: Again there is a mildly enlarged aorticopulmonary window lymph node measuring 1.2 cm, pr eviously measuring 1.0 cm. This demonstrates equivocal uptake on the prior PET/CT. No other enlarged lymph nodes are seen. Moderate to severe coronary calcifications are present. Slightly prominent para esophageal lymph node on series 5 image 54 measures 6 mm in short axis but appears to maintain a fatt y hilum. OTHER: Cholelithiasis is seen as there is a lamellated gallstone present. Incidentally noted hepatic steatosis is seen. Splenules are present adjacent to the chipewwa spleen. Nonenlarged cervical chain ly mph node adjacent to the thyroid cartilage measures 5 mm in short axis on series 5 image 3. No enlarg ed supraclavicular adenopathy nor axillary adenopathy. Mild multilevel degenerative changes of the th oracic spine are noted. IMPRESSION: 1. MINIMAL ENLARGEMENT OF THE SPICULATED LINGULAR NODULE THAT SHOULD BE CONSIDERED NEOPLASM UNTIL PRO BUSHRA OTHERWISE WITH MINIMAL ENLARGEMENT OF A SOLITARY VERY MILDLY ENLARGED AORTICOPULMONARY WINDOW LYM PH NODE WITH EQUIVOCAL UPTAKE ON THE PRIOR PET/CT. NO NEW PULMONARY NODULES OR MASSES. 2. INCIDENTALLY NOTED HEPATIC STEATOSIS AND CHOLELITHIASIS.
[2019-02-24] MEDS ORDERED: SUCCINYLCHOLINE CHLORIDE 100 MG/5 ML SYR IV ONE (11:40)
[2019-02-24] MEDS ORDERED: GLYCOPYRROLATE 0.2 MG/ML 2 ML VIAL ONE (11:40)
[2019-02-24] MEDS ORDERED: LIDOCAINE 1% INJ 10MG/ML (20 ML MDV) ONE (11:40)
[2019-02-24] MEDS ORDERED: ROCURONIUM BROMIDE 10 MG/ML 10 ML VIAL IV ONE (11:40)
[2019-02-24] MEDS ORDERED: KETAMINE 10 MG/ML 20 ML VIAL ONE (11:40)
[2019-02-24] MEDS ORDERED: fentaNYL (PF) 50 MCG/ML 2 ML AMP ONE (11:40)
[2019-02-24] MEDS ORDERED: MIDAZOLAM 2 MG/2 ML VIAL ONE (11:40)
[2019-02-24] MEDS ORDERED: PROPOFOL 10 MG/ML 20 ML VIAL IV ONE (11:40)
[2019-02-24] MEDS ORDERED: NEOSTIGMINE 1 MG/ML 10 ML VIAL ONE (11:40)
[2019-02-24] MEDS ORDERED: LACTATED RINGERS 1,000 ML IV ONE (12:38)
[2019-02-24 12:49] VITALS: TEMP 97.7
--- NOTE | 2019-02-24 13:00 | OP ---
OPERATIVE REPORT PROCEDURE: Navigational bronchoscopy. PREOPERATIVE DIAGNOSIS: Solitary pulmonary nodule, lingula. POSTOPERATIVE DIAGNOSIS: Solitary pulmonary nodule, lingula. OPERATORS: Dr. Olivas and Dr. Casarez. DESCRIPTION OF PROCEDURE: The patient was done in the operating room. It was done under general anesthetic. Dr. Moreira and COUN[employer] PRINTER provided general anesthesia. After the patient was intubated and being ventilated and anesthetized, the bronchoscope was inserted through the bronchoscope adapter connected to the endotracheal tube. We went down into the lingula. Our mapping was done prior. We were able to localize the lesion in the lingula. It appeared to be in the inferior segment of the lingula. Under guidance by the navigational system, we were able to do multiple transbronchial biopsies, multiple needle biopsies, brushes, and washes in that area. There was minimal to no bleeding. The patient tolerated the procedure well. The patient was stable throughout the entire procedure. Pathology was present in the room at the time and thought that we had adequate specimens to make a diagnosis of malignancy. The final diagnosis will be provided at a future date. I will make sure that the family knows the results of the procedure today. There was no immediate complications and the patient will be recovered. A chest x-ray will be ordered. MMODL / IJN: [id number] /
--- NOTE | 2019-02-24 14:08 | XR ---
EXAMINATION TYPE: XR chest 1V portable DATE OF EXAM: 02/24/2019 Comparison: 01/14/2019 Clinical History: 64-year-old female Status post lingula mass biopsies Findings: Heart limits of normal in size. Mild diffuse interstitial prominence. No appreciable pneumothorax. No pleural effusion. Focal opacity peripheral left lower lung enlarged from 01/14/2019 likely secondary to some postbiopsy peritumoral hemorrhage. Impression: Known left basilar lesion appears slightly larger likely secondary to mild postbiopsy peritumoral hem orrhage. No pleural effusion or pneumothorax.
[2019-02-24 14:41] VITALS: BP 125/74; PULSE 77
[2019-02-24 18:03] LABS: Appearance,BF Hazy; Color,BF Colorless; Nucleated Cells, Body Fluid 10 /uL; RBC, Body Fluid 1900 /uL
== END 2019-02-24 14:41 | disposition home or self-care (01) ==
LOC: ORWHC2ENDO 09:29
PROVIDERS: ATTEND Internal Medicine Critical Care Medicine
DX: R91.1 Solitary pulmonary nodule (principal); I10 Essential (primary) hypertension; E78.5 Hyperlipidemia, unspecified; J44.9 Chronic obstructive pulmonary disease, unspecified; Z87.891 Personal history of nicotine dependence; Z83.3 Family history of diabetes mellitus; Z79.84 Long term (current) use of oral hypoglycemic drugs; Z79.1 Long term (current) use of non-steroidal anti-inflammatories (NSAID); Z79.51 Long term (current) use of inhaled steroids; Z79.899 Other long term (current) drug therapy; Z88.1 Allergy status to other antibiotic agents; Z88.5 Allergy status to narcotic agent; Z88.8 Allergy status to other drugs, medicaments and biological substances
CPT/HCPCS: 87798 ×3; 87496; 87498; 87529; 88104; 88108; 88305; 88173; 89050; 87252; 87502; 87634; 87070; 87205; 87116; 87102; 87206; 71045; 71250; 31628; 31623; 31627; J2250; J1100; J2710; J2405; J2001; J3010; J0330; J2704; 31624; 31625

== ENCOUNTER → 2019-03-02 | Outpatient (CLI) | payer OTHER ==
--- NOTE | 2019-03-03 12:01 | BD ---
EXAMINATION TYPE: Axial Bone Density DATE OF EXAM: 03/02/2019 COMPARISON: NONE CLINICAL HISTORY: Postmenopausal female. Osteoporosis screening. Height: 5 FT 4 1/4 IN Weight: 206 FRAX RISK QUESTIONS: Secondary Osteoporosis: Current Tobacco Use: YES JUST QUIT SIX WEEKS AGO RISK FACTORS HISTORY OF: Surgery to Spine/Hip(right/left)/Wrist (right/left): LUMBAR SURG When: APPROX 16 YEARS AGO Postmenopausal woman: PART ST 48-50 Poor Health: FAIR MEDICATIONS: Additional Medications: METFORMIN, LISINOPRIL, CHOLESTEROL MEDS, CYMBICORT, PAIN RELIEVERS OTC, Additional History: PT HAS COPD AND ASTHMA EXAM MEASUREMENTS: Bone mineral density about the R hip (g/cm2): 1.790 Bone mineral density about the L hip (g/cm2): 0.990 T Score values are as follows: -----R Neck: 5.4 -----L Neck: -0.3 -----R Total: 2.5 -----L Total: 0.9 PREV DONE ELSEWHERRE Bone mineral density about the L Wrist (g/cm2): 0.687 T Score values are as follows: -----Dist. R+U: -0.8 -----Prox. R+U: 0.3 -----Radius total: 0.2 PREV DONE ELSEWHERE IMPRESSION: Normal (Values between +1 and -1 indicate normal bone mass). Consider repeating this study in 5 year s or sooner if there is some new clinical indication. NOTE: T-SCORE=SD OF THE YOUNG ADULT MEAN.
--- NOTE | 2019-03-04 12:02 | MM ---
Reason for exam: screening (asymptomatic). History: Patient is postmenopausal. Family history of breast cancer in maternal grandmother. Physical Findings: A clinical breast exam by your physician is recommended on an annual basis and results should be correlated with mammographic findings. MG Screening Mammo w CAD Bilateral CC and MLO view(s) were taken. No prior studies available for comparison. There are scattered fibroglandular densities. There is no discrete abnormality. ASSESSMENT: Negative, BI-RAD 1 RECOMMENDATION: Routine screening mammogram of both breasts in 1 year.
== END | disposition home or self-care (01) ==
LOC: RADMAMWWP 14:59
PROVIDERS: ATTEND Family Medicine
DX: Z12.31 Encounter for screening mammogram for malignant neoplasm of breast (principal); Z13.820 Encounter for screening for osteoporosis; Z78.0 Asymptomatic menopausal state
CPT/HCPCS: 77067; 77080

== ENCOUNTER → 2019-03-11 | Outpatient (CLI) | payer OTHER ==
[2019-03-11 11:40] LABS: Basophils # (A) 0.1 k/uL (0-0.2); Basophils % (A) 2 %; Eosinophils # (A) 0.2 k/uL (0-0.7); Eosinophils % (A) 3 %; HCT 40.7 % (34.0-46.0); HGB 13.6 gm/dL (11.4-16.0); Lymphocytes # (A) 1.4 k/uL (1.0-4.8); Lymphocytes % (A) 24 %; MCH 29.8 pg (25.0-35.0); MCHC 33.4 g/dL (31.0-37.0); MCV 89.3 fL (80.0-100.0); Mean Platelet Volume 7.3; Monocytes # (A) 0.3 k/uL (0-1.0); Monocytes % (A) 5 %; Neutrophils # (A) 3.8 k/uL (1.3-7.7); Neutrophils % (A) 65 %; Platelet Count 310 k/uL (150-450); RBC 4.55 m/uL (3.80-5.40); RDW 15.3 % (11.5-15.5); WBC 5.9 k/uL (3.8-10.6)
[2019-03-11 11:41] LABS: Potassium 3.7 mmol/L (3.5-5.1)
== END | disposition home or self-care (01) ==
LOC: LABPAT 10:19
PROVIDERS: ATTEND Thoracic Surgery (Cardiothoracic Vascular Surgery)
DX: Z01.812 Encounter for preprocedural laboratory examination (principal); R91.8 Other nonspecific abnormal finding of lung field
CPT/HCPCS: 36415; 80051; 82565; 82947; 84520; 85025

== ENCOUNTER 2019-03-24 07:14 | Inpatient (IN) | payer OTHER ==
[~2019-03-24 07:14] MED LIST changes: -ALBUTEROL NEB (CONC) 2.5 MG/0.5 ML INHALATION ONE; -ATROPINE SULFATE 0.4 MG/ML 1 ML VIAL IM ONE; -HYDROmorphone 0.5 MG/0.5 ML SYRINGE IVP PRN; -LACTATED RINGERS 1,000 ML IV SCH; -LIDOCAINE 2% (PF) 20 MG/ML 10 ML AMP INHALATION ONE; -LIDOCAINE VISCOUS 300 MG/15 ML CUP MUCOUS MEM ONE; -MIDAZOLAM (PF) 2 MG/2 ML VIAL IV PRN; -ONDANSETRON 4 MG/2 ML VIAL IVP ONE; -SODIUM CHLORIDE 0.9% 1,000 ML IV SCH; +ceFAZolin IN SWFI 2 GM/20 ML SYRINGE IVP ONE
[2019-03-24 08:22] LABS: Glucose,Whole Blood 165 mg/dL (75-99)
[2019-03-24] MEDS: LACTATED RINGERS 1,000 ML IV SCH ×2 (08:22→09:22)
[2019-03-24] MEDS: ONDANSETRON 4 MG/2 ML VIAL IVP ONE ×2 (08:23→11:03)
[2019-03-24] MEDS: MIDAZOLAM 2 MG/2 ML VIAL IV PRN ×2 (08:30→08:41)
[2019-03-24] MEDS ORDERED: BUPIVACAINE (PF) 0.5% 30 ML VIAL SQ ONE (09:20)
[2019-03-24] MEDS ORDERED: HYDROmorphone (PF) 1 MG/ML ONE (09:21)
[2019-03-24] MEDS ORDERED: PROPOFOL 10 MG/ML 20 ML VIAL IV ONE (09:21)
[2019-03-24] MEDS ORDERED: ROCURONIUM BROMIDE 10 MG/ML 10 ML VIAL IV ONE (09:21)
[2019-03-24] MEDS ORDERED: MIDAZOLAM 2 MG/2 ML VIAL ONE (09:21)
[2019-03-24] MEDS ORDERED: LIDOCAINE 1% INJ 10MG/ML (20 ML MDV) ONE (09:21)
[2019-03-24] MEDS ORDERED: SUCCINYLCHOLINE CHLORIDE 100 MG/5 ML SYR IV ONE (09:21)
[2019-03-24] MEDS ORDERED: NEOSTIGMINE 1 MG/ML 10 ML VIAL ONE (09:21)
[2019-03-24] MEDS ORDERED: GLYCOPYRROLATE 0.2 MG/ML 2 ML VIAL ONE (09:21)
[2019-03-24] MEDS ORDERED: fentaNYL (PF) 50 MCG/ML 2 ML AMP ONE (09:21)
[2019-03-24] MEDS ORDERED: DOCUSATE 100 MG CAP PO PRN (10:08)
--- NOTE | 2019-03-24 11:00 | P.OP ---
Date of Procedure: 03/24/19 Preoperative Diagnosis: Left lung mass, enlarged mediastinal lymph node Postoperative Diagnosis: Same Procedure(s) Performed: Left thoracoscopy with wedge resection of mass from left upper lobe (lingula), biopsy of mediastinal lymph node (L5) Anesthesia: LISA Surgeon: Renyn Aguilar Rehabilitation Coordinator #1: Cliff Woods Estimated Blood Loss (ml): 5 IV fluids (ml): 500 Urine output (ml): 0 Pathology: other (Wedge resection lingula for permanent section, biopsy of L5 lymph node for permanent section and cultures) Condition: stable Disposition: PACU Indications for Procedure: 64-year-old female presents with newly diagnosed left lingular mass which is PET positive. She also has a markedly enlarged lymph node in the aorticopulmonary window which was also positive on PET. Operative Findings: There was a 2-3 cm mass in the lingula of the upper lobe which was very suspicious for carcinoma due to retraction of the overlying pleura down into the mass. It was successfully resected with grossly negative margins. There was an enlarged lymph node in the L5 region which was very firm and fixed. Description of Procedure: The patient was brought to the operating room, placed supine on the operating table, anesthetized and intubated with a double-lumen endotracheal tube. Tube was positioned with fiberoptic bronchoscopy and secured. The patient was turned in the right lateral decubitus position and the left chest sterilely prepped and draped. 33 cm incisions were made in the left chest and single lung ventilation was ensued. Incisions were carried down into the pleural space. Thoracoscopic port was placed through the middle inferior incision and through the other 2 the chest was explored. There was a good-sized tumor present in the lingula. We were able to compress along proximal to the tumor and perform a wedge resection using multiple firings of and a LORIE thick stapler. Specimen was then placed in an Endo Catch bag and brought out onto the field to the anteriormost incision. Specimen was examined with findings as noted above. It was sent for permanent section. Then retracted the upper lobe posteriorly and explored the AP window r egion. A large firm fixed lymph node was encountered. Biopsies were obtained using a mediastinoscopy cupped forceps. Small portion was sent for culture and the remainder was sent for permanent section. Good hemostasis was noted throughout. 28-Romanian chest tube was placed through separate stab incision anteriorly and positioned posterior apically. It was secured with 0 Ethibond suture. The lung was reinflated under thoracoscopic visualization. Incisions were closed with layers of Vicryl suture. Rib blocks were performed at the level of the incisions. Skin glue and dry sterile dressings were applied. The chest tube was connected to a Pleur-evac. Patient was turned supine and extubated and transferred to recovery room in stable condition.
[2019-03-24] MEDS: HYDROmorphone 0.5 MG/0.5 ML SYRINGE IVP PRN ×4 (11:03→11:54)
[2019-03-24 11:14] LABS: Glucose,Whole Blood 153 mg/dL (75-99)
--- NOTE | 2019-03-24 11:24 | XR ---
EXAMINATION TYPE: XR chest 1V portable DATE OF EXAM: 03/24/2019 COMPARISON: 02/24/2019 INDICATION: Post VATS TECHNIQUE: Single frontal view of the chest is obtained. FINDINGS: The heart size is normal. The pulmonary vasculature is normal. There is a left-sided chest tube. There is density in the left perihilar region. No pneumothorax is e vident. IMPRESSION: 1. No pneumothorax. Left-sided chest tube is in position. 2. There is a rounded density in the left perihilar region.
[2019-03-24] MEDS ORDERED: IPRATROPIUM-ALBUTEROL 3 ML NEB IH PRN (13:43)
[2019-03-24] MEDS ORDERED: ONDANSETRON 4 MG/2 ML VIAL IVP PRN (13:43)
[2019-03-24] MEDS ORDERED: SODIUM CHLORIDE 0.9% 1,000 ML IV ONE (14:08)
[2019-03-24] MEDS: traMADol 50 MG TAB PO SCH ×3 (14:28→21:52)
[2019-03-24] MEDS: HEPARIN SODIUM,PORCINE 5,000 UNIT/ML 1 ML VIAL SQ SCH ×2 (14:30→23:17)
[2019-03-24] MEDS: KETOROLAC 30 MG/ML 1 ML VIAL IVP SCH ×3 (14:30→23:17)
[2019-03-24 14:58] VITALS: BMI 34.9
[2019-03-24] MEDS ORDERED: ACETAMINOPHEN TAB 500 MG TAB PO PRN (15:45)
[2019-03-24 16:23] LABS: Glucose,Whole Blood 169 mg/dL (75-99)
[2019-03-24] MEDS: IPRATROPIUM-ALBUTEROL 3 ML NEB IH SCH ×2 (16:37→20:47)
[2019-03-24] MEDS: metFORMIN 500 MG TAB PO SCH (17:45)
--- NOTE | 2019-03-24 18:00 | P.CNPUL ---
History of Present Illness Consult date: 03/24/19 Reason for consult: lung mass History of present illness: This is a 64-year-old female patient with a lingular mass measuring 2.5 cm in diameter suspicious for malignancy based on CT criteria. No adenopathy was noted on the CAT scan. The patient underwent a PET scan that showed uptake in the involved area as well as some uptake in the hilar and the periaortic lymph node region. The patient underwent an investigation bronchoscopy as well as a renal biopsy that was nondiagnostic. It was considered to proceed with surgical resection. The patient underwent a left thoracoscopy with wedge resection of a left upper lobe mass that was present the lingula. Biopsy of a mediastinal lymph node in the AP window was done. Noted the patient is known to have COPD. She has [id number] smoking history. She quit smoking in December 2018. I saw the patient in the recovery room. The patient had been extubated already. The patient had a left-sided chest tube. No evidence of any pneumothorax. No significant air leak and the chest tube. Output from the chest that was of minimal her pain was under good control. She denies having any nausea or vomiting. She was hemodynamically stable. She was about to get transferred to a medical surgical/telemetry unit. Review of Systems Constitutional: Denies chills, Denies fever Eyes: denies blurred vision, denies bulging eye, denies decreased vision Ears: deny: decreased hearing, ear discharge, earache, tinnitus Ears, nose, mouth and throat: Denies headache, Denies sore throat Cardiovascular: Reports dyspnea on exertion Respiratory: Reports dyspnea Gastrointestinal: Denies abdominal pain, Denies diarrhea, Denies nausea, Denies vomiting Genitourinary: Reports as per HPI Menstruation: Reports as per HPI Musculoskeletal: Reports as per HPI Musculoskeletal: absent: ankle pain, ankle stiffness, ankle swelling Integumentary: Reports as per HPI Neurological: Reports as per HPI Psychiatric: Reports as per HPI Endocrine: Reports as per HPI Hematologic/Lymphatic: Reports as per HPI Allergic/Immunologic: Reports as per HPI Past Medical History Past Medical History: Asthma, Chest Pain / Angina, COPD, Diabetes Mellitus, GERD/Reflux, Hyperlipidemia, Hypertension, Musculoskeletal Disorder, Pneumonia Additional Past Medical History / Comment(s): Left upper lobe mass, chronic headaches, chronic sinus disease, history of insomnia, history of depression, history of heartburn, COPD, diabetes mellitus, peripheral neuropathy, hypertension, hyperlipidemia, sciatica with chronic pain in the left lower extremity addition to numbness. History of Any Multi-Drug Resistant Organisms: None Reported Past Surgical History: Appendectomy, Back Surgery, Hysterectomy Additional Past Surgical History / Comment(s): CHAPIN[facility]O BRONCH 02/24/19. COLONOSCOPY. Past Anesthesia/Blood Transfusion Reactions: No Reported Reaction Smoking Status: Former smoker - Past Family History Mother Family Medical History: No Reported History Medications and Allergies Home Medications Medication Instructions Recorded Confirmed Type Atorvastatin [Lipitor] 40 mg PO HS #30 tablet 01/11/19 03/24/19 Rx Acetaminophen/Diphenhydramine 2 tab PO HS 02/22/19 03/24/19 History [Tylenol PM Extra Strength] Albuterol Inhaler [Ventolin Hfa 1 - 2 puff INHALATION RT-Q6H PRN 02/22/19 03/24/19 History Inhaler] Lisinopril 20 mg PO DAILY 02/22/19 03/24/19 History metFORMIN HCL [Glucophage] 500 mg PO BID 02/22/19 03/24/19 History Docusate Sodium [Dok] 100 mg PO HS PRN 03/15/19 03/24/19 History Fluticasone Propionate [Armonair 1 puff INHALATION RT-BID 03/15/19 03/24/19 History Respiclick] Ibuprofen [Motrin Ib] 800 mg PO Q6H PRN 03/15/19 03/24/19 History amLODIPine [Norvasc] 5 mg PO DAILY 03/15/19 03/24/19 History Allergies Allergy/AdvReac Type Severity Reaction Status Date / Time codeine AdvReac Nausea & Verified 03/24/19 14:05 Vomiting fluoxetine [From Prozac] AdvReac Unknown Verified 03/24/19 14:05 morphine AdvReac Vomiting Verified 03/24/19 14:05 Tetracyclines AdvReac Nausea & Verified 03/24/19 14:05 Vomiting Physical Exam Vitals: Vital Signs Temp Pulse Pulse Pulse Resp BP BP 03/24/19 17:02 88 03/24/19 16:37 89 16 03/24/19 16:00 18 03/24/19 15:16 84 12 139/66 03/24/19 14:36 98 F 89 12 05/23/19 13:32 85 16 117/67 05/23/19 13:02 86 16 129/68 03/24/19 12:37 86 10 L 129/68 03/24/19 12:02 85 16 136/69 03/24/19 11:46 85 16 155/78 03/24/19 11:30 84 16 158/76 03/24/19 11:16 81 16 160/76 03/24/19 11:00 77 16 167/90 03/24/19 10:47 97.8 F 82 20 186/84 03/24/19 07:51 98.3 F 91 16 159/74 Pulse Ox 03/24/19 17:02 03/24/19 16:37 98 03/24/19 16:00 03/24/19 15:16 97 03/24/19 14:36 03/24/19 13:32 97 03/24/19 13:02 96 03/24/19 12:37 95 03/24/19 12:02 98 03/24/19 11:46 98 03/24/19 11:30 100 03/24/19 11:16 100 03/24/19 11:00 99 03/24/19 10:47 100 03/24/19 07:51 95 Intake and Output 03/24/19 03/24/19 03/24/19 06:59 14:59 22:59 Intake Total 950 Output Total 5 Balance 945 Intake: IV 950 Output: Estimated Blood Loss 5 Other: # Voids 1 Gen. appearance, comfortable likely distress and was still somewhat sedated.. Head exam was generally normal. There was no scleral icterus or corneal arcus. Mucous membranes were moist. Neck was supple and without jugular venous distension, thyromegaly, or carotid bruits. Carotids were easily palpable bilaterally. There was no adenopathy. Lungs sounds are diminished in the left lung base compared to the right. The left-sided chest tube is in place. Surgical wound sites are all dry clean and intact. The patient is a left pleural chest tube without any evidence of air leak Cardiac exam revealed the PMI to be normally situated and sized. The rhythm was regular and no extrasystoles were noted during several minutes of auscultation. The first and second heart sounds were normal and physiologic splitting of the second heart sound was noted. There were no murmurs, rubs, clicks, or gallops. Abdominal exam revealed normal bowel sounds. The abdomen was soft, non-tender, and without masses, organomegaly, or appreciable enlargement of the abdominal aorta. Examination of the extremities revealed easily palpable radial, femoral and pedal pulses. There was no cyanosis, clubbing or edema. Examination of the skin revealed no evidence of significant rashes, suspicious appearing nevi or other concerning lesions. Neurologically she is awake and alert and there is no focal neurological deficits. Results - Laboratory Findings Abnormal lab findings: Abnormal Labs 03/24/19 03/24/19 03/24/19 08:19 11:11 16:22 POC Glucose (mg/dL) 165 H 153 H 169 H - Diagnostic Findings Chest x-ray: image reviewed Assessment and Plan Plan: 1 left upper lobe lingular mass 2.5 cm, suspicious for malignancy based on CAT scan criteria and has shown an demonstrating significant metabolic activity on the PET scan. The patient is post left thoracoscopy, wedge resection of a left upper lobe mass and biopsy of mediastinal lymph node at the level of the AP window. Patient is currently postop day #0. She has a left sided chest tube in place. Chest x-ray was reviewed 2 COPD 3 obesity with a BMI of 35.1 4 diabetes mellitus 5 diabetic neuropathy 6 history of migraines 7 occasional heartburn 8 depression 9. Lipidemia 10 hypertension Plan We'll be awaiting the final path and bases I will decide if the patient will need a left upper lobe resection. All depends on the staging including the status of the lymph node that was biopsied at the time of the surgery. It final diagnoses been established yet and we'll be awaiting the final pathology. Keep the chest tube in place. Repeat chest x-ray in the morning. Provide patient incentive spirometer. Pain control with Toradol. Heparin subcu for DVT prophylaxis. DuoNeb nebulized seems [id number]. We'll continue to follow.
[2019-03-24] MEDS: ceFAZolin IN SWFI 2 GM/20 ML SYRINGE IVP SCH (18:04)
[2019-03-24 20:47] LABS: Glucose,Whole Blood 201 mg/dL (75-99)
[2019-03-24] MEDS: diphenhydrAMINE 50 MG CAP PO SCH (20:51)
[2019-03-24] MEDS: ACETAMINOPHEN TAB 500 MG TAB PO SCH (21:00)
[2019-03-24] MEDS: ATORVASTATIN 40 MG TAB PO SCH (21:01)
[2019-03-25] MEDS: ceFAZolin IN SWFI 2 GM/20 ML SYRINGE IVP SCH (03:40)
[2019-03-25] MEDS: ACETAMINOPHEN TAB 500 MG TAB PO SCH (03:40)
[2019-03-25] MEDS: KETOROLAC 30 MG/ML 1 ML VIAL IVP SCH ×4 (05:25→23:26)
[2019-03-25 06:05] LABS: Glucose,Whole Blood 189 mg/dL (75-99)
[2019-03-25 06:28] LABS: Basophils # (A) 0.1 k/uL (0-0.2); Basophils % (A) 1 %; Eosinophils # (A) 0.1 k/uL (0-0.7); Eosinophils % (A) 1 %; HCT 35.7 % (34.0-46.0); HGB 11.8 gm/dL (11.4-16.0); Lymphocytes % (A) 11 %; MCH 29.1 pg (25.0-35.0); MCV 88.1 fL (80.0-100.0); Mean Platelet Volume 6.9; Monocytes # (A) 0.5 k/uL (0-1.0); Monocytes % (A) 6 %; Neutrophils # (A) 6.8 k/uL (1.3-7.7); Neutrophils % (A) 81 %; Platelet Count 321 k/uL (150-450); RBC 4.05 m/uL (3.80-5.40); RDW 15.2 % (11.5-15.5); WBC 8.4 k/uL (3.8-10.6)
[2019-03-25] MEDS: PANTOPRAZOLE 40 MG TABLET PO SCH (06:33)
[2019-03-25] MEDS: metFORMIN 500 MG TAB PO SCH ×2 (06:33→17:19)
[2019-03-25 06:36] LABS: Calcium 8.3 mg/dL (8.4-10.2); Potassium 3.4 mmol/L (3.5-5.1)
--- NOTE | 2019-03-25 08:10 | XR ---
EXAMINATION TYPE: XR chest 1V DATE OF EXAM: 03/25/2019 HISTORY: Shortness of breath. COMPARISON: 03/24/2019 TECHNIQUE: Single view of the chest is submitted. FINDINGS: Left sided chest tube is noted. Left basilar pneumothorax appears of increased slightly in size. Cont inued follow-up is advised. There is right basilar atelectasis. The heart is stable. Hilar and mediastinal structures are within normal limits. Degenerative changes are seen of the dorsal spine. IMPRESSION: 1. Left sided chest tube is noted. Left basilar pneumothorax appears of increased slightly in size. Continued follow-up is advised.
[2019-03-25] MEDS: HEPARIN SODIUM,PORCINE 5,000 UNIT/ML 1 ML VIAL SQ SCH ×3 (08:19→23:26)
[2019-03-25] MEDS: LISINOPRIL 20 MG TAB PO SCH (08:19)
[2019-03-25] MEDS: traMADol 50 MG TAB PO SCH ×2 (08:19→14:11)
[2019-03-25] MEDS: amLODIPine 5 MG TAB PO SCH (08:19)
[2019-03-25] MEDS: IPRATROPIUM-ALBUTEROL 3 ML NEB IH SCH ×4 (08:22→20:10)
--- NOTE | 2019-03-25 09:23 | XR ---
EXAMINATION TYPE: XR chest 2V DATE OF EXAM: 03/25/2019 COMPARISON: 03/25/2019 HISTORY: Rule out Pneumothorax TECHNIQUE: Frontal and lateral views of the chest are obtained. FINDINGS: Postoperative changes left hemithorax. Left-sided chest tube is in place. No definite left-sided pneu mothorax seen. Prior study left basilar lucency is likely technical in nature. Right basilar atelectasis noted. Heart size is stable. Mediastinal structures are stable and grossly unremarkable. No evidence for hilar prominence. Degenerative changes dorsal spine. IMPRESSION: 1. Postoperative changes left hemithorax. Left-sided chest tube is in place. No definite left-sided p neumothorax seen. Prior study left basilar lucency is likely technical in nature.
[2019-03-25 11:48] LABS: Glucose,Whole Blood 148 mg/dL (75-99)
--- NOTE | 2019-03-25 13:12 | P.PN ---
Subjective Progress Note Date: 03/25/19 Principal diagnosis: Left lung mass, enlarged mediastinal lymph node. Previous medical history of COPD with 50+-pack-year history of smoking, diabetes, hypertension, hyperlipidemia, peripheral neuropathy. POD #1 left thoracoscopy with wedge resection of mass from left upper lobe (lingula), biopsy of mediastinal lymph node (L5) The patient is currently sitting up in bed in no acute distress. States pain is controlled on current medication regimen. Denies shortness of breath. Left pleural chest tube to water seal, no air leak present. Patient is very anxious about any discharge plans for today. Objective - Vital Signs Vital signs: Vital Signs Temp 98.2 F 03/25/19 07:11 Pulse 88 03/25/19 07:11 Resp 18 03/25/19 07:11 BP 137/65 03/25/19 07:11 Pulse Ox 96 03/25/19 07:11 Intake & Output 03/24/19 03/25/19 03/25/19 18:59 06:59 18:59 Intake Total 1190 Output Total 5 81 Balance 1185 -81 Weight 100.5 kg Intake: IV 950 Oral 240 Output: Chest Tube Drainage 80 Left Lateral Chest 80 Urine 1 Estimated Blood Loss 5 Other: Voiding Method Toilet # Voids 1 - Constitutional General appearance: Present: cooperative, no acute distress, obese - Respiratory Details: Lungs sounds diminished bilaterally. Respirations even, nonlabored. Currently on room air with oxygen saturation 93%. Able to achieve 750-1000 mL on her incentive spirometry. Left pleural chest tube to waterseal, 25 mL serosanguineous drainage overnight, 155 mL since surgery, no air leak present. - Cardiovascular Details: S1, S2 present. Regular rate and rhythm, sinus rhythm on telemetry. Palpable p eripheral pulses bilaterally. No edema present. No calf pain or tenderness noted. SCDs present. - Gastrointestinal Gastrointestinal Comment(s): Abdomen soft, nontender, nondistended, obese. Active bowel sounds present 4 quadrants. Tolerating diet. - Genitourinary Genitourinary Comment(s): Continues to void clear, yellow urine. - Integumentary Integumentary Comment(s): Skin is warm and dry with evidence of good perfusion. Left pleural chest tube site covered with dry intact dressing. - Neurologic Neurologic: Present: CNII-XII intact - Musculoskeletal Musculoskeletal: Present: gait normal, strength equal bilaterally - Psychiatric Psychiatric Comment(s): Patient remains anxious Psychiatric: Present: A&O x's 3, appropriate affect - Allied health notes Allied health notes reviewed: nursing - Labs CBC & Chem 7: 03/25/19 06:05 03/25/19 06:05 Labs: Abnormal Lab Results - Last 24 Hours (Table) 03/24/19 03/24/19 03/24/19 Range/Units 08:19 11:11 16:22 Sodium (137-145) mmol/L Potassium (3.5-5.1) mmol/L Chloride (98-107) mmol/L Creatinine (0.52-1.04) mg/dL Glucose (74-99) mg/dL POC Glucose (mg/dL) 165 H 153 H 169 H (75-99) mg/dL Calcium (8.4-10.2) mg/dL 03/24/19 03/25/19 03/25/19 Range/Units 20:43 06:03 06:05 Sodium 135 L (137-145) mmol/L Potassium 3.4 L (3.5-5.1) mmol/L Chloride 97 L (98-107) mmol/L Creatinine 1.22 H (0.52-1.04) mg/dL Glucose 169 H (74-99) mg/dL POC Glucose (mg/dL) 201 H 189 H (75-99) mg/dL Calcium 8.3 L (8.4-10.2) mg/dL Microbiology - Last 24 Hours (Table) 03/24/19 10:24 Gram Stain - Preliminary Lymph Node Tissue Culture - Preliminary 03/24/19 10:24 Acid Fast Bacilli Smear - Final Lymph Node Acid Fast Bacilli Culture - Preliminary 03/24/19 10:24 Fungal Culture - Preliminary Lymph Node 03/24/19 10:24 Anaerobic Culture - Preliminary Lymph Node - Imaging and Cardiology Chest x-ray: report reviewed, image reviewed Assessment and Plan Assessment: 1. Left lung mass, enlargement a lymph node. Status post left thoracoscopy with wedge resection 2. History of COPD 3. 50+-pack-year history of smoking with recent cessation 4. Diabetes 5. Hypertension line 6. Hyperlipidemia 7. Peripheral neuropathy Plan: 1. Will discontinue left pleural chest tube. Repeat CXR in 2 hours. If stable, will discharge to home with follow up appointment made for Dr. Aguilar in 1 week. 2. Encourage continued incentive spirometry at home. 3. Pain control with Tylenol alternating with Motrin. 4. Increase activity, ambulate as tolerated. 5. Chest tube dressing to remain in place for 48 hours. If dressing becomes saturated, may reinforce. After 48 hours, patient may remove dressing and shower daily. 6. Follow up appointments made for pulmonology, primary care physicians. Time with Patient: Greater than 30
--- NOTE | 2019-03-25 15:13 | P.PN ---
Subjective Progress Note Date: 03/25/19 Principal diagnosis: Left upper lobe lingular mass status post left thoracoscopy and wedge resection of a left upper lobe mass This is a 64-year-old female patient with a lingular mass measuring 2.5 cm in diameter suspicious for malignancy based on CT criteria. No adenopathy was noted on the CAT scan. The patient underwent a PET scan that showed uptake in the involved area as well as some uptake in the hilar and the periaortic lymph node region. The patient underwent an investigation bronchoscopy as well as a renal biopsy that was nondiagnostic. It was considered to proceed with surgical resection. The patient underwent a left thoracoscopy with wedge resection of a left upper lobe mass that was present the lingula. Biopsy of a mediastinal lymph node in the AP window was done. Noted the patient is known to have COPD. She has 20-zmqz-ereo smoking history. She quit smoking in December 2018. I saw the patient in the recovery room. The patient had been extubated already. The patient had a left-sided chest tube. No evidence of any pneumothorax. No significant air leak and the chest tube. Output from the chest that was of minimal her pain was under good control. She denies having any nausea or vomiting. She was hemodynamically stable. She was about to get transferred to a medical surgical/telemetry unit. On 03/25/2019 patient is seen in follow-up on selective care unit, she is awake and alert, in no acute distress, she is resting comfortably in bed, room air pulse ox is 91%, achieving about 700 to 1000 mL on the incentive spirometer. Lung sounds are diminished at the bases, left-sided chest tube is in place, and there is no air leak on today's exam, today's chest x-ray has been reviewed and showed postoperative changes, with left-sided chest tube in place, no definite left-sided pneumothorax, left basilar lucency. Biopsy results are still pending at this time, CT surgery is planning on taking the chest tube out today. No acute events overnight, today's labs have been reviewed and potassium is 3.4, being replaced per protocol, creatinine is 1.22. Patient is on nebulized bronchodilators, she denies any difficulty breathing. Objective - Vital Signs Vital signs: Vital Signs Temp 97.6 F 03/25/19 12:05 Pulse 82 05/24/19 12:05 Resp 18 03/25/19 12:05 BP 120/60 03/25/19 12:05 Pulse Ox 91 L 03/25/19 12:05 Intake & Output 03/24/19 03/25/19 03/25/19 18:59 06:59 18:59 Intake Total 1190 436 Output Total 5 81 50 Balance 1185 -81 386 Weight 100.5 kg Intake: IV 950 Oral 240 436 Output: Chest Tube Drainage 80 50 Left Lateral Chest 80 50 Urine 1 Estimated Blood Loss 5 Other: Voiding Method Toilet Toilet # Voids 1 - Exam GENERAL EXAM: Alert, pleasant, 64-year-old white female, comfortable in no apparent distress. HEAD: Normocephalic/atraumatic. EYES: Normal reaction of pupils, equal size. Conjunctiva pink, sclera white. NOSE: Clear with pink turbinates. THROAT: No erythema or exudates. NECK: No masses, no JVD, no thyroid enlargement, no adenopathy. CHEST: No chest wall deformity. Symmetrical expansion. LUNGS: Equal air entry with no crackles, wheeze, rhonchi or dullness. Left- sided chest tube is in place, to waterseal, with small amount of serosanguineous drainage overnight, no air leak present on today's exam CVS: Regular rate and rhythm, normal S1 and S2, no gallops, no murmurs, no rubs ABDOMEN: Soft, nontender. No hepatosplenomegaly, normal bowel sounds, no guarding or rigidity. EXTREMITIES: No clubbing, no edema, no cyanosis, 2+ pulses and upper and lower extremities. MUSCULOSKELETAL: Muscle strength and tone normal. SPINE: No scoliosis or deformity SKIN: No rashes CENTRAL NERVOUS SYSTEM: Alert and oriented -3. No focal deficits, tone is normal in all 4 extremities. PSYCHIATRIC: Alert and oriented -3. Appropriate affect. Intact judgment and insight. - Labs CBC & Chem 7: 03/25/19 06:05 03/25/19 06:05 Labs: Abnormal Lab Results - Last 24 Hours (Table) 03/24/19 03/24/19 03/25/19 Range/Units 16:22 20:43 06:03 Sodium (137-145) mmol/L Potassium (3.5-5.1) mmol/L Chloride (98-107) mmol/L Creatinine (0.52-1.04) mg/dL Glucose (74-99) mg/dL POC Glucose (mg/dL) 169 H 201 H 189 H (75-99) mg/dL Calcium (8.4-10.2) mg/dL 03/25/19 03/25/19 Range/Units 06:05 11:26 Sodium 135 L (137-145) mmol/L Potassium 3.4 L (3.5-5.1) mmol/L Chloride 97 L (98-107) mmol/L Creatinine 1.22 H (0.52-1.04) mg/dL Glucose 169 H (74-99) mg/dL POC Glucose (mg/dL) 148 H (75-99) mg/dL Calcium 8.3 L (8.4-10.2) mg/dL Microbiology - Last 24 Hours (Table) 03/24/19 10:24 Gram Stain - Preliminary Lymph Node Tissue Culture - Preliminary 03/24/19 10:24 Acid Fast Bacilli Smear - Final Lymph Node Acid Fast Bacilli Culture - Preliminary 03/24/19 10:24 Fungal Culture - Preliminary Lymph Node 03/24/19 10:24 Anaerobic Culture - Preliminary Lymph Node Assessment and Plan Plan: Assessment: 1 left upper lobe lingular mass 2.5 cm, suspicious for malignancy based on CAT scan criteria and has shown an demonstrating significant metabolic activity on the PET scan. The patient is post left thoracoscopy, wedge resection of a left upper lobe mass and biopsy of mediastinal lymph node at the level of the AP window. Patient is currently postop day #1. She has a left sided chest tube in place. Chest x-ray was reviewed 2 COPD 3 obesity with a BMI of 35.1 4 diabetes mellitus 5 diabetic neuropathy 6 history of migraines 7 occasional heartburn 8 depression 9. Lipidemia 10 hypertension Plan: Continue encouraging deep breathing and coughing, today's chest x-ray has been reviewed, no definite pneumothorax, postoperative changes, patient denies s hortness of breath, is complaining of incisional pain, she is on oral secretions for pain in addition to Toradol. No fever or chills, left chest tube remains in place no air leak noted on today's exam. Clinically stable, anticipate removal of the left-sided chest tube, biopsy results are still pending. We'll continue to follow I performed a history & physical examination of the patient and discussed their management with my nurse practitioner, Mague Malagon. I reviewed the nurse practitioner's note and agree with the documented findings and plan of care. Lung sounds are positive for diminished breath sounds. The findings and the impression was discussed with the patient. I attest to the documentation by the nurse practitioner. Time with Patient: Less than 30
--- NOTE | 2019-03-25 15:44 | XR ---
EXAMINATION TYPE: XR chest 2V DATE OF EXAM: 03/25/2019 COMPARISON: Same day study HISTORY: Left-sided chest tube has been removed TECHNIQUE: Frontal and lateral views of the chest are obtained. FINDINGS: Left-sided chest tube has removed. There is persistent density in the region of the lingula with pos toperative change seen. There is a small fluid level identified at the left lung base which could ref lect a small loculated pneumothorax. Right basilar atelectasis noted as well. Heart size is stable. Mediastinal structures are stable and grossly unremarkable. No evidence for hilar prominence. Degenerative changes dorsal spine. IMPRESSION: 1. Left-sided chest tube has removed. There is persistent density in the region of the lingula with postoperative change seen. There is a small fluid level identified at the left lung base which could reflect a small loculated pneumothorax. Right basilar atelectasis noted as well.
[2019-03-25 16:35] LABS: Glucose,Whole Blood 131 mg/dL (75-99)
[2019-03-25] MEDS ORDERED: traMADol 50 MG TAB PO PRN (16:41)
[2019-03-25] MEDS: diphenhydrAMINE 50 MG CAP PO SCH (20:01)
[2019-03-25 20:35] LABS: Glucose,Whole Blood 165 mg/dL (75-99)
[2019-03-25] MEDS: ATORVASTATIN 40 MG TAB PO SCH (22:02)
[2019-03-26 04:37] VITALS: RESP 15
[2019-03-26 05:44] LABS: Glucose,Whole Blood 157 mg/dL (75-99)
[2019-03-26] MEDS: KETOROLAC 30 MG/ML 1 ML VIAL IVP SCH (06:46)
[2019-03-26] MEDS: metFORMIN 500 MG TAB PO SCH (06:46)
[2019-03-26] MEDS: PANTOPRAZOLE 40 MG TABLET PO SCH (06:46)
[2019-03-26] MEDS: HEPARIN SODIUM,PORCINE 5,000 UNIT/ML 1 ML VIAL SQ SCH (09:37)
[2019-03-26] MEDS: LISINOPRIL 20 MG TAB PO SCH (09:37)
[2019-03-26] MEDS: amLODIPine 5 MG TAB PO SCH (09:37)
[2019-03-26] MEDS: IPRATROPIUM-ALBUTEROL 3 ML NEB IH SCH (09:45)
[2019-03-26 10:33] VITALS: BP 126/58; PULSE 89; TEMP 98.7
--- NOTE | 2019-03-27 11:23 | P.DS ---
Providers Date of admission: 03/24/19 07:14 Expected date of discharge: 03/26/19 Attending physician: Renny Aguilar Consults: 03/24/19 13:43 Consult Physician Routine Consulting Provider: Colleen Orlando Consult Reason/Comments: post willard goetz patient Do you want consulting provider notified?: Yes Primary care physician: Darren Martinez [facility] Course: FINAL DIAGNOSIS: 1. Left lung mass, enlargement mediastinal lymph node 2. History of COPD 3. [id number] smoking history 4. Diabetes 5. Hypertension 6. Hyperlipidemia 7. Peripheral neuropathy PRINCIPAL PROCEDURE: 1. Left thoracoscopic wedge resection of the mass from the left upper lobe (lingula) 2. Biopsy of mediastinal lymph node (L5) HISTORY OF PRESENT ILLNESS: This is a 64-year-old female patient who follows with Dr Martinez and Dr. Olivas on an outpatient basis. She had a mass present in the base of the lingula measuring 2-2.5 cm in diameter suspicious for malignancy by CT criteria. There was no adenopathy noted on CT. The patient underwent PET scanning which showed marked uptake in the tumor as well as uptake in the hilar and periaortic lymph nodes. She underwent navigational bronchoscopy as well as one needle biopsy, these studies were nondiagnostic. The patient was referred to Dr. Aguilar from cardiothoracic surgery. She was recommended to undergo thoracoscopic wedge resection for biopsy. The usual perioperative course was discussed in detail with the patient and her family, all risks and benefits were explained, all questions were answered, and consent was obtained to proceed with surgery. The patient was scheduled for surgery at the earliest possible date. HOSPITAL COURSE: The patient was brought to the hospital on 03/24/2019, taken to the preoperative area, prepared in the usual fashion, and subsequently taken to the operating room where Dr. Aguilar performed left thoracoscopic wedge resection of the mass from the left upper lobe (lingula) with biopsy of mediastinal lymph node (L5). Upon completion of surgery the patient was extubated and eventually admitted to 3 separate cardiac stepdown unit where she was recovered and monitored hemodynamically. On the day after surgery she had no air leak in her chest tube, her chest x-ray was stable, and her left pleural chest tube was discontinued without incident. Her oxygen was titrated down, she was tolerating oral diet, her pain was controlled, and she was ready to be discharged to home on postoperative day #1, however she was in on easy about going home so quickly, and requested to stay for an additional night. She was discharged to home on postop day #2, she received written and verbal instruction regarding her medications, activity restrictions, signs and symptoms requiring physician notification, and follow-up appointments. COMPLICATIONS: The patient experienced no postoperative complications. Patient Condition at Discharge: Stable Plan - Discharge Summary Discharge Rx Participant: Yes New Discharge Prescriptions: New Acetaminophen Tab [Tylenol] 1,000 mg PO Q6HR PRN tab PRN Reason: Fever And/ Or Pain Continue Atorvastatin [Lipitor] 40 mg PO HS #30 tablet Lisinopril 20 mg PO DAILY metFORMIN HCL [Glucophage] 500 mg PO BID Albuterol Inhaler [Ventolin Hfa Inhaler] 1 - 2 puff INHALATION RT-Q6H PRN PRN Reason: Shortness Of Breath Or Wheezing Acetaminophen/Diphenhydramine [Tylenol PM Extra Strength] 2 tab PO HS Docusate Sodium [Dok] 100 mg PO HS PRN PRN Reason: Constipation Fluticasone Propionate [Armonair Respiclick] 1 puff INHALATION RT-BID Ibuprofen [Motrin Ib] 800 mg PO Q6H PRN PRN Reason: Pain amLODIPine [Norvasc] 5 mg PO DAILY Discharge Medication List Atorvastatin [Lipitor] 40 mg PO HS #30 tablet 01/11/19 [Rx] Acetaminophen/Diphenhydramine [Tylenol PM Extra Strength] 2 tab PO HS 02/22/19 [History] Albuterol Inhaler [Ventolin Hfa Inhaler] 1 - 2 puff INHALATION RT-Q6H PRN 02/22/19 [History] Lisinopril 20 mg PO DAILY 02/22/19 [History] metFORMIN HCL [Glucophage] 500 mg PO BID 02/22/19 [History] Docusate Sodium [Dok] 100 mg PO HS PRN 03/15/19 [History] Fluticasone Propionate [Armonair Respiclick] 1 puff INHALATION RT-BID 03/15/19 [History] Ibuprofen [Motrin Ib] 800 mg PO Q6H PRN 03/15/19 [History] amLODIPine [Norvasc] 5 mg PO DAILY 03/15/19 [History] Acetaminophen Tab [Tylenol] 1,000 mg PO Q6HR PRN tab 03/25/19 [Rx] Follow up Appointment(s)/Referral(s): Darren Martinez MD [Primary Care Provider] - 04/01/19 8:50 am (Thursday) Renny Aguilar MD [STAFF PHYSICIAN] - 03/31/19 1:00 pm Mayur Olivas DO [Doctor of Osteopathic Medicine] - 04/15/19 2:30 pm Patient Instructions/Handouts: *Surgery [facility] - Lung, Liver, Kidney, Adrenal Gland Biopsy Discharge Instructions, Lung Lobectomy (DC) Activity/Diet/Wound Care/Special Instructions: DISCHARGE INSTRUCTIONS: 1. No driving for 2 weeks, or until physician gives their ok. 2. No lifting, pushing, or pulling more than 10 pounds for 2 weeks. The physician will advise of any restriction changes. 3. Continue pain control per as needed orders. Alternate acetaminophen (Tylenol) and ibuprofen (Motrin/Advil) for pain. 4. Continue with incentive spirometry and splinting until otherwise directed by the physician. 5. Leave chest tube dressing for 48 hours. After that, remove all dressings and shower daily. 6. Routine incision care. No powders, lotions, ointments on incisions. 7. Please call surgeon/TURBINE MECHANIC for temp greater than 101 F or purulent drainage from incisions. Discharge Disposition: HOME SELF-CARE
== END 2019-03-26 11:20 | disposition home or self-care (01) | DRG 165 ==
LOC: 2ORMAIN 07:14 → EDSTATUS 09:00 → 3SCARD 13:32
PROVIDERS: ADMIT Thoracic Surgery (Cardiothoracic Vascular Surgery); ATTEND Thoracic Surgery (Cardiothoracic Vascular Surgery)
PROC: 0BBG4ZZ Excision of Left Upper Lung Lobe, Percutaneous Endoscopic Approach (ICD-10-PCS; principal; 2019-03-24 08:45)
PROC: 07B74ZX Excision of Thorax Lymphatic, Percutaneous Endoscopic Approach, Diagnostic (ICD-10-PCS; principal; 2019-03-24 08:45)
DX: C34.12 Malignant neoplasm of upper lobe, left bronchus or lung (principal); E11.42 Type 2 diabetes mellitus with diabetic polyneuropathy; E66.9 Obesity, unspecified; E78.5 Hyperlipidemia, unspecified; F32.9 Major depressive disorder, single episode, unspecified; I10 Essential (primary) hypertension; J44.9 Chronic obstructive pulmonary disease, unspecified; K21.9 Gastro-esophageal reflux disease without esophagitis; Z68.35 Body mass index [BMI] 35.0-35.9, adult; Z79.84 Long term (current) use of oral hypoglycemic drugs; Z79.899 Other long term (current) drug therapy; Z87.891 Personal history of nicotine dependence; Z90.710 Acquired absence of both cervix and uterus; Z88.1 Allergy status to other antibiotic agents; Z88.5 Allergy status to narcotic agent
CPT/HCPCS: 71045; 71046; 80048; 85025; 87070; 87075; 87102; 87116; 87205; 87206; 88305; 88307; 88313; 88341; 88342; 94640; 94760

== ENCOUNTER → 2019-04-15 | Outpatient (CLI) | payer OTHER ==
--- NOTE | 2019-04-18 09:21 | PE ---
EXAMINATION TYPE: PET CT fusion skull to thigh DATE OF EXAM: 04/15/2019 COMPARISON: Prior PET/CT February 05, 2019 HISTORY: Lung cancer progress study after left-sided surgery per patient. TECHNIQUE: Following the intravenous administration of 12.26 mCi of F-18 FDG, whole body images are performed from the skull base to the midthigh. Images are reviewed on the computer in the coronal, a xial, and sagittal planes. Reconstructed rotating images are created on independent workstation and reviewed on the computer. A noncontrast CT is performed in conjunction with the PET scan. SCAN: Subsequent Scan FINDINGS: SKULL BASE AND NECK: No new suspicious hypermetabolic uptake CHEST, MEDIASTINUM, AND HILAR REGION: Interval left lung surgery is confirmed with new sutures anteri milton lower lung axial image 90. The previously visualized anterior left lower lung hypermetabolic nod ule is not clearly seen on current study. There is new small to tiny left pleural effusion that is a metabolic. There is persistent prominent prevascular lymph node measuring 1.1 x 1.0 cm axial image 80 with mild hypermetabolic uptake, max SUV is 2.92. In the AP window there is persistent prominent lymph node roxanna suring 1.2 x 0.9 cm axial image 85, max SUV is 4.09. No new areas of suspicious hypermetabolic uptake are identified in the thorax. ABDOMEN AND PELVIS: Nonspecific bowel uptake is redemonstrated prominent throughout the colon. No new areas of suspicious hypermetabolic uptake. OSSEOUS STRUCTURES: No new areas of suspicious hypermetabolic uptake. OTHER CT: Mild/moderate coronary artery calcification is redemonstrated which is noted marker for und erlying coronary artery disease. Cardiomegaly is redemonstrated. Liver is diffusely low-density consistent with fatty infiltration. Large rim calcified dependent gall stone is again seen. Prominent sigmoid colonic diverticulosis is redemonstrated. Left-sided pelvic ph lebolith is seen. There is advanced degenerative change right hip joint with marked joint space loss and subchondral cy stic change redemonstrated. IMPRESSION: Interval left lung surgery. Stable suspicious nonspecific prevascular and AP window lymph nodes. No new areas of suspicious hypermetabolic uptake present.
== END | disposition home or self-care (01) ==
LOC: RADPETMAIN 15:23
PROVIDERS: ATTEND Internal Medicine Hematology & Oncology
DX: C34.12 Malignant neoplasm of upper lobe, left bronchus or lung (principal); Z98.890 Other specified postprocedural states
CPT/HCPCS: 78815; A9552

== ENCOUNTER → 2019-04-20 | Outpatient (CLI) | payer OTHER ==
--- NOTE | 2019-04-20 21:53 | MR ---
EXAMINATION TYPE: MR brain wo/w con DATE OF EXAM: 04/20/2019 COMPARISON: NONE HISTORY: Lung Cancer /Headaches TECHNIQUE: Multiplanar, multisequence images of the brain and brainstem is performed without and with IV contras t, utilizing 9 mL intravenous Gadavist . FINDINGS: Diffusion weighted images demonstrate no evidence of a recent infarct or other diffusion ab normality. There is no worrisome extra-axial fluid collection. Diffuse ventricular and sulcal promin ence is present. Some T2 hyperintensity in the periventricular white matter is present. Midline structures demonstrate normal morphology. The craniocervical junction appears within normal limits. Post contrast images demonstrate no abnormal enhancement. The dural venous sinuses appear pa tent. The visualized sinuses are clear and the globes are intact. Some patchy increased fluid signal inferior mastoid air cells is present bilaterally. Cannot rule out, mild bilateral mastoiditis, corre late clinically. Nasal septum is deviated to left of midline. IMPRESSION: Mild to moderate diffuse cerebral atrophy with mild to minimal chronic small vessel ische alberta change. No suspicious enhancing intraparenchymal masses are noted.
== END | disposition home or self-care (01) ==
LOC: RADMRIMAIN 18:57
PROVIDERS: ATTEND Internal Medicine Hematology & Oncology
DX: I67.82 Cerebral ischemia (principal); G31.9 Degenerative disease of nervous system, unspecified
CPT/HCPCS: 70553; A9585

== ENCOUNTER → 2019-07-29 | Outpatient (CLI) | payer OTHER ==
--- NOTE | 2019-08-01 20:42 | PE ---
EXAMINATION TYPE: PET CT fusion skull to thigh DATE OF EXAM: 07/29/2019 COMPARISON: Chest CT 02/24/2019 Prior PET/CT: 04/15/2019 HISTORY: Lung cancer TECHNIQUE: Following the intravenous administration of 11.2 mCi of F-18 FDG, whole body images are p erformed from the skull base to the midthigh. Images are reviewed on the computer in the coronal, ax ial, and sagittal planes. Reconstructed rotating images are created on independent workstation and r eviewed on the computer. A localization and attenuation correction CT is performed in conjunction w ith the PET scan. DLP: 446.61 mGycm SCAN: Subsequent Blood glucose: 114 mg/dL Average Mediastinum SUV: 1.62 Average Liver SUV: 1.95 FINDINGS: NECK: Mild increased uptake within the right thyroid gland midportion. This has an SUV value of 3.01 . Ultrasound of the thyroid is recommended for additional evaluation. THORAX: No abnormal uptake. No suspicious uptake within the lung vick evident. No mediastinal adeno mimi with increase uptake is evident. No suspicious uptake is noted along the postsurgical suture li ne. SUV value is 1.37. Example image 95. ABDOMEN: May be a small focus of increased radiotracer accumulation within the right lobe liver ident ified on PET image 119. The SUV value of this is 3.11. Metastatic lesion at this level is not exclude d. Consider MRI of the liver with contrast for additional evaluation. Normal-appearing excretion appe ars to be within the bilateral kidneys. PELVIS: No abnormal uptake OSSEOUS STRUCTURES: No abnormal uptake LOCALIZATION CT: There is a small left pleural effusion. Very minimal pericardial effusion is present . Abnormality within the liver to correspond to the PET findings is not evident on the current locali zation and attenuation correction CT. Note is made of vascular calcification is within the aorta. Cho lelithiasis is present. COMPARISON: Hepatic findings is not evident on the prior examination. Previous left infrahilar uptake is not evident on the current exam. IMPRESSION: 1. Improved radiotracer distribution within the chest without evidence of previous left hilar suspect ed metastasis. 2. New small focus of radiotracer which is ill-defined within the right lobe liver. Consider MRI live r with contrast for closer evaluation. 3. Increased uptake within the right thyroid lobe. Evaluate with ultrasound. SUV value of 3 is somewh at high for inflammatory change. New neoplasm at this level should be considered.
== END | disposition home or self-care (01) ==
LOC: RADPETMAIN 14:19
PROVIDERS: ATTEND Internal Medicine Hematology & Oncology
DX: C34.12 Malignant neoplasm of upper lobe, left bronchus or lung (principal)
CPT/HCPCS: 78815; A9552

== ENCOUNTER → 2019-08-17 | Outpatient (CLI) | payer OTHER ==
--- NOTE | 2019-08-18 01:51 | MR ---
EXAMINATION TYPE: MR liver wo/w con DATE OF EXAM: 08/17/2019 COMPARISON: HISTORY: Hx of ca Lung cancer CONTRAST: Standard multiplanar, multisequence MRI departmental protocol utilizing 7.5 mL intravenous Gadavist g adolinium contrast. FINDINGS: Liver has normal size and contour. The bile ducts are not dilated. Pancreas appears normal. Pancreatic duct appears normal. There is 2 cm filling defect in the gallbladder consistent with a la rge gallstone. There is also smaller gallstone. There is no gallbladder wall thickening. Spleen appea rs normal. Kidneys have fairly normal size. There is no hydronephrosis. The stomach appears normal. There is no sign of ascites. There is evidence of small left pleural thickening or effusion. There is no evidence of a bowel obstruction. Contrast images show normal contrast opacification of the kidneys. There is normal contrast opacification of the portal venous system. There is no pathologic enhancement. Visual ized bony structures appear intact. IMPRESSION: There is cholelithiasis. No dilated ducts. No evidence of abdominal metastatic disease.
== END | disposition home or self-care (01) ==
LOC: RADMRIMAIN 18:02
PROVIDERS: ATTEND Internal Medicine Hematology & Oncology
DX: K80.20 Calculus of gallbladder without cholecystitis without obstruction (principal)
CPT/HCPCS: 74183; A9585

== ENCOUNTER → 2019-09-02 | Outpatient (CLI) | payer OTHER ==
--- NOTE | 2019-09-04 21:11 | US ---
EXAMINATION TYPE: US thyroid st tissue head/neck DATE OF EXAM: 09/02/2019 COMPARISON: Correlation PET CT 07/29/2019 CLINICAL HISTORY: 64-year-old female E01.2 goiter. Abnormal PET scan TECHNIQUE: Multiple sonographic images of the thyroid gland are obtained. FINDINGS: GLAND SIZE: Right Lobe: 4.5 x 2.2 x 2.2 cm Overall Parenchyma: heterogenous Left Lobe: 4.6 x 1.5 x 1.5 cm Overall Parenchyma: heterogeneous Isthmus Thickness: 0.3 cm NODULES RIGHT: # of nodules measured on right: 0 LEFT: # of nodules measured on left: 0 ISTHMUS: # of nodules measured in the isthmus: 0 Bilateral neck scanned, no evidence of lymphadenopathy. IMPRESSION: Very heterogeneous thyroid gland measuring at the upper limits of normal in size without discrete nod ule. The right lobe is slightly more bulky than the left. Consider goiter or diffuse thyroiditis.
== END | disposition home or self-care (01) ==
LOC: RADUSMAIN 17:49
PROVIDERS: ATTEND Internal Medicine Hematology & Oncology
DX: E01.2 Iodine-deficiency related (endemic) goiter, unspecified (principal); Z88.5 Allergy status to narcotic agent
CPT/HCPCS: 76536

== ENCOUNTER → 2019-12-14 | Outpatient (CLI) | payer OTHER ==
[2019-12-15 00:26] LABS: T4, Free (Free Thyroxine) 1.5 ng/dL (0.80-1.80)
== END | disposition home or self-care (01) ==
LOC: LABWHC1 15:49
PROVIDERS: ATTEND Internal Medicine
DX: C80.1 Malignant (primary) neoplasm, unspecified (principal); E03.9 Hypothyroidism, unspecified
CPT/HCPCS: 36415; 82533; 84439; 84443

== ENCOUNTER → 2020-02-28 | Outpatient (CLI) | payer MEDICARE, OTHER ==
--- NOTE | 2020-02-28 20:31 | CT ---
EXAMINATION TYPE: CT ChestAbdPelvis w con DATE OF EXAM: 02/28/2020 INDICATION: follow up lung cancer COMPARISON: 12/09/2019 CT DLP: 1795 mGycm CONTRAST: Performed with Oral Contrast and with IV Contrast, patient injected with 80 mL of Isovue 300. TECHNIQUE: Axial images at 5 mm thick sections. Reconstructed images in the coronal plane. Delayed images through the kidneys. FINDINGS: CT CHEST: Portion of the thyroid visualized is normal. There is worsening consolidation or density at the left infrahilar region. Air bronchograms are prese nt. There is a punctate density in the periphery of the lateral right costophrenic angle measuring 0.3 cm . Series 4 image 44. No enlarged mediastinal or hilar adenopathy is evident. The ascending aorta diameter at the level of the main pulmonary artery is 3.6 cm. The main pulmonary artery diameter at the bifurcation is 2.7 cm. Coronary artery calcification is present. CT ABDOMEN: Liver: Normal Spleen: Normal Pancreas: Normal Adrenal glands: The adrenal glands are normal. Gallbladder: Cholelithiasis is present. Kidneys: No masses are evident. No hydronephrosis is present. No cysts are present. Delayed images were obtained through the kidneys, which remain unremarkable. Aorta: Vascular calcification is within the aorta. Inferior vena cava: Normal. CT PELVIS: Diverticular changes are within the sigmoid colon. No inflammatory changes are adjacent. Oral contras t extends to the terminal ileum with minimal amount contrast within the cecum. There are loops of bow el lacking oral contrast limiting their evaluation. Appendix: Not identified Urinary bladder: Normal. Genitourinary structures: Uterus and ovaries are not identified. Osseous structures: No suspicious lytic or sclerotic lesions. There are advanced degenerative changes at the right hip. Sacroiliac joint vacuum phenomenon is present. Some facet hypertrophy is present. IMPRESSIONS: 1. Worsening of the consolidation and increased density in the left infrahilar region. Reevaluation f or recurrence at this level is recommended. Infectious etiology is not excluded although significant advancement as would be expected for an infectious etiology is not evident.
== END | disposition home or self-care (01) ==
LOC: RADCTMAIN 12:55
PROVIDERS: ATTEND Internal Medicine Hematology & Oncology
DX: J98.4 Other disorders of lung (principal); C34.12 Malignant neoplasm of upper lobe, left bronchus or lung; Z88.5 Allergy status to narcotic agent
CPT/HCPCS: 82565; 84520; 71260; 74177; 36415; Q9967 ×2

== ENCOUNTER → 2020-05-02 | Outpatient (CLI) | payer MEDICARE, OTHER ==
--- NOTE | 2020-05-02 14:35 | CT ---
EXAMINATION TYPE: CT ChestAbdPelvis w con DATE OF EXAM: 05/02/2020 COMPARISON: CT chest abdomen pelvis 02/28/2020 HISTORY: Lung cancer CT DLP: 2225.9 mGycm Automated exposure control for dose reduction was used. CONTRAST: CT scan of the chest, abdomen and pelvis is performed with Oral Contrast and with IV Contrast, patien t injected with 50 mL of Isovue 300. FINDINGS: LUNGS: The lungs are grossly stable, there is no interval change concerning parenchymal mass or nodul e identified. Some probable postprocedural changes are present in the left lower lobe, linear high a ttenuation may represent postop change. The left hilar soft tissue density shows a similar appearance and is likely due to post treatment change, there is some local scarring. There is no pleural effusi on or pneumothorax seen. The tracheobronchial tree is patent. MEDIASTINUM: There are no greater than 1 cm hilar or mediastinal lymph nodes. No pericardial effusi on is seen. There are coronary artery calcifications. AORTA: No significant abnormality is seen. OTHER: No additional significant abnormality is seen. LIVER/GB: No significant interval change is appreciated. Calcified gallstone present within the gallb ladder, liver shows low attenuation PANCREAS: No significant abnormality is seen. SPLEEN: No significant abnormality is seen. ADRENALS: No significant abnormality is seen. KIDNEYS: No significant abnormality is seen. REPRODUCTIVE ORGANS: Not seen BOWEL: Diverticular changes associated with the sigmoid colon. FREE AIR: No Free Air visible. ASCITES: None seen. RETROPERITONEAL ADENOPATHY: No retroperitoneal adenopathy is seen. LYMPH NODES: No greater than 1 cm abdominal or pelvic lymph nodes are appreciated. URINARY BLADDER: No significant abnormality is seen. PELVIC ADENOPATHY: None visualized. OSSEOUS STRUCTURES: Marked osteoarthritic changes are present in the right hip as noted on prior exa m, spinal curvature, degenerative disc changes are again seen, there is some facet arthropathy. IMPRESSION: Findings are stable. Suspect posttreatment changes to the left hilar region.
== END | disposition home or self-care (01) ==
LOC: RADCTMAIN 11:37
PROVIDERS: ATTEND Internal Medicine Hematology & Oncology
DX: C34.12 Malignant neoplasm of upper lobe, left bronchus or lung (principal); Z88.6 Allergy status to analgesic agent; Z88.1 Allergy status to other antibiotic agents; Z88.8 Allergy status to other drugs, medicaments and biological substances
CPT/HCPCS: 82565; 84520; 71260; 74177; 36415; Q9967

== ENCOUNTER → 2020-07-03 | Outpatient (CLI) | payer OTHER ==
[2020-07-03 16:58] LABS: HCT 36.9 % (34.0-46.0); Hypochromasia Slight; MCH 29.7 pg (25.0-35.0); MCHC 32.6 g/dL (31.0-37.0); Mean Platelet Volume 7.3; Platelet Count 268 k/uL (150-450); RBC 4.05 m/uL (3.80-5.40); RDW 15.2 % (11.5-15.5)
[2020-07-03 17:03] LABS: Albumin 4.6 g/dL (3.5-5.0); Calcium 9.7 mg/dL (8.4-10.2); Magnesium 1.9 mg/dL (1.6-2.3); Phosphorus 3.9 mg/dL (2.5-4.5); Potassium 4.4 mmol/L (3.5-5.1); Total Bilirubin 0.7 mg/dL (0.2-1.3); Total Protein 7.5 g/dL (6.3-8.2); Uric Acid 7.3 mg/dL (3.7-7.4)
[2020-07-03 17:28] LABS: Appearance,Urine Clear (Clear); Bilirubin,Urine Negative (Negative); Blood,Urine Negative (Negative); Color,Urine Light Yellow; Glucose,Urine (UA) Negative (Negative); Ketones,Urine Negative (Negative); Leukocyte Esterase,Urine Negative (Negative); Nitrite,Urine Negative (Negative); Protein,Urine Negative (Negative); Specific Gravity,Urine 1.008 (1.001-1.035); Urobilinogen,Urine <2.0 mg/dL (<2.0)
[2020-07-04 00:39] LABS: Microalbumin Creatinine Ratio <30 mg/g Creat (0-30); Urine Creatinine 61.1 mg/dL
[2020-07-04 00:54] LABS: % Iron Saturation 21.82 (12.00-45.00)
[2020-07-04 01:03] LABS: Ferritin 139.6 ng/mL (10.0-291.0)
--- NOTE | 2020-07-04 07:29 | US ---
EXAMINATION TYPE: US kidneys/renal and bladder DATE OF EXAM: 07/03/2020 COMPARISON: NONE CLINICAL HISTORY: Chronic Kidney Disease N18.3. diabetic, ckd EXAM MEASUREMENTS: Right Kidney: 8.6 x 4.7 x 3.8cm Left Kidney: 9.2 x 3.7 x 4.3 cm difficult to image Right Kidney: small in size, no hydronephrosis or masses seen Left Kidney: No hydronephrosis or masses seen Bladder: wnl Bilateral Jets seen: no There is no evidence for hydronephrosis at this point in time. No nephrolithiasis is seen. No luis s are identified. The urinary bladder is anechoic. Bilateral ureteral jets are seen. IMPRESSION: The kidneys are diminutive in size.
== END | disposition home or self-care (01) ==
LOC: RADUSWWP 15:58
PROVIDERS: ATTEND Internal Medicine
DX: N27.1 Small kidney, bilateral (principal); N18.3 Chronic kidney disease, stage 3 (moderate); D63.1 Anemia in chronic kidney disease; N39.0 Urinary tract infection, site not specified; R80.9 Proteinuria, unspecified; E83.39 Other disorders of phosphorus metabolism; E21.3 Hyperparathyroidism, unspecified; E55.9 Vitamin D deficiency, unspecified; M10.9 Gout, unspecified
CPT/HCPCS: 36415; 76770; 80053; 81003; 82043; 82306; 82570; 82728; 83540; 83550; 83735; 83970; 84100; 84550; 85027

== ENCOUNTER → 2020-07-27 | Outpatient (CLI) | payer MEDICARE, OTHER ==
[~2020-07-27] MED LIST changes: -DEXAMETHASONE SOD PHOSPHATE 10 MG/ML 1 ML VIAL IV ONE; -LIDOCAINE 1% 20 ML VIAL (10MG/ML) FOR IV START INTRADERMA PRN; -SCOPOLAMINE 1.5MG/72HR PATCH TRANSDERM ONE; +SODIUM CHLORIDE 0.9% 500 ML 500 ML IV SCH; +SODIUM CHLORIDE 0.9% 500 ML 500 ML in EMPTY BAG 1 BAG IV PRN; -ceFAZolin IN SWFI 2 GM/20 ML SYRINGE IVP ONE
[2020-07-27 07:23] VITALS: BP 121/74; PULSE 82; RESP 16; TEMP 97.9
== END | disposition home or self-care (01) ==
LOC: PROCWHC3 06:47
PROVIDERS: ATTEND Nurse Practitioner Family
DX: T50.8X5S Adverse effect of diagnostic agents, sequela (principal)
CPT/HCPCS: 36415; 96360; 96361

== ENCOUNTER → 2020-07-27 | Outpatient (CLI) | payer MEDICARE, OTHER ==
--- NOTE | 2020-07-27 12:45 | CT ---
EXAMINATION TYPE: CT ChestAbdPelvis w con DATE OF EXAM: 07/27/2020 COMPARISON: Prior exam 05/02/2020 HISTORY: Lung CA CT DLP: 1639.5 mGycm Automated exposure control for dose reduction was used. CONTRAST: CT scan of the chest, abdomen and pelvis is performed with Oral Contrast and with IV Contrast, patien t injected with 100 mL of Isovue 300. FINDINGS: LUNGS: The lungs are stable, there is no concerning parenchymal mass or nodule identified. Abnormal density in the left upper lobe medially extending on the mediastinum, left heart border is unchanged, there is postop change. There is no pleural effusion or pneumothorax seen. The tracheobronchial alan e is patent. MEDIASTINUM: There are no greater than 1 cm hilar or mediastinal lymph nodes. No pericardial effusi on is seen. There are coronary artery calcifications. There is a small hiatal hernia present. AORTA: No significant abnormality is seen. OTHER: No additional significant abnormality is seen. LIVER/GB: There is a stable calcified gallstone, liver shows low attenuation PANCREAS: No significant abnormality is seen. SPLEEN: No significant abnormality is seen. ADRENALS: No significant abnormality is seen. KIDNEYS: No significant abnormality is seen. REPRODUCTIVE ORGANS: Uterus is not seen, ovaries unremarkable BOWEL: Diverticular changes extensive along the sigmoid colon especially FREE AIR: No Free Air visible. ASCITES: None seen. RETROPERITONEAL ADENOPATHY: No retroperitoneal adenopathy is seen. LYMPH NODES: No greater than 1 cm abdominal or pelvic lymph nodes are appreciated. URINARY BLADDER: No significant abnormality is seen. PELVIC ADENOPATHY: None visualized. OSSEOUS STRUCTURES: Marked arthropathy again noted right hip. There is remodeling the femoral head. Acetabulum is also remodeled, there is marginal spurring, joint space loss, subchondral sclerosis, maryam int space loss and marginal spurring. Degenerative disc change, facet arthropathy noted in the lower lumbar spine.. IMPRESSION: Stable posttreatment changes, no evident recurrence.
== END | disposition home or self-care (01) ==
LOC: RADCTMAIN 07-18 12:30
PROVIDERS: ATTEND Internal Medicine Hematology & Oncology
DX: C34.12 Malignant neoplasm of upper lobe, left bronchus or lung (principal); T50.8X1A Poisoning by diagnostic agents, accidental (unintentional), initial encounter; Z98.890 Other specified postprocedural states
CPT/HCPCS: 82565; 84520; 71260; 74177; 96360; 96361; 36415; Q9967 ×2

== ENCOUNTER → 2020-10-19 | Outpatient (CLI) | payer MEDICARE, OTHER ==
[2020-10-20 00:15] LABS: T4, Free (Free Thyroxine) 1.7 ng/dL (0.80-1.80)
== END | disposition home or self-care (01) ==
LOC: LABWHC1 14:59
PROVIDERS: ATTEND Internal Medicine
DX: E03.9 Hypothyroidism, unspecified (principal)
CPT/HCPCS: 36415; 84439; 84443

== ENCOUNTER → 2020-10-31 | Outpatient (CLI) | payer MEDICARE, OTHER | END | disposition home or self-care (01) | LOC: LABPAT 11:40 | PROVIDERS: ATTEND Surgery | DX: Z20.828 Contact with and (suspected) exposure to other viral communicable diseases (principal) ==

== ENCOUNTER → 2020-11-07 | Outpatient (CLI) | payer MEDICARE, OTHER ==
--- NOTE | 2020-11-07 20:44 | CT ---
EXAMINATION TYPE: CT ChestAbdPelvis w con DATE OF EXAM: 11/07/2020 INDICATION: Lung CA COMPARISON: 07/27/2020 CT DLP: 1788.9 mGycm CONTRAST: Performed with Oral Contrast and with IV Contrast, patient injected with 80 mL of Isovue 300. TECHNIQUE: Axial images at 5 mm thick sections. Reconstructed images in the coronal plane. Delayed images through the kidneys. FINDINGS: CT CHEST: Portion of the thyroid visualized is normal. There is some mild soft tissue thickening around the lingular pulmonary arteries at the hilum. This w as present previously. No enlarged mediastinal or hilar adenopathy is evident. The ascending aorta diameter at the level of the main pulmonary artery is 3.6 cm. The main pulmonary artery diameter at the bifurcation is 2.[address] ABDOMEN: Liver: Normal Spleen: Normal Pancreas: Normal Adrenal glands: The adrenal glands are normal. Gallbladder: Large gallstone is present Kidneys: No masses are evident. No hydronephrosis is present. No cysts are present. Delayed images were obtained through the kidneys, which remain unremarkable. Aorta: Vascular calcification is within the aorta. Inferior vena cava: Normal. CT PELVIS: Loops of bowel within the abdomen and pelvis are normal. Couple diverticuli are through the sigmoid c olon. There are loops of bowel which are incompletely distended or lack oral contrast limiting the ir evaluation. Appendix: Not identified. No dilated tubular structures or inflammatory changes are evident. Urinary bladder: Normal. Genitourinary structures: Uterus and ovaries are not identified. Osseous structures: No suspicious lytic or sclerotic lesions. Advanced degenerative changes are at th e right hip. IMPRESSIONS: 1. Stable appearing soft tissue at the anterior left infrahilar region. No suspicious new changes. 2. Cholelithiasis
== END | disposition home or self-care (01) ==
LOC: RADCTMAIN 10:50
PROVIDERS: ATTEND Internal Medicine Hematology & Oncology
DX: K80.20 Calculus of gallbladder without cholecystitis without obstruction (principal); C34.12 Malignant neoplasm of upper lobe, left bronchus or lung; Z88.5 Allergy status to narcotic agent; Z88.1 Allergy status to other antibiotic agents; Z88.8 Allergy status to other drugs, medicaments and biological substances
CPT/HCPCS: 82565; 84520; 71260; 74177; 36415; Q9967 ×2

== ENCOUNTER 2020-11-09 06:44 | Day surgery (SDC) | payer MEDICARE, OTHER ==
[2020-11-05 12:03] VITALS: BMI 34.8
[~2020-11-09 06:44] MED LIST changes: +LACTATED RINGERS 1,000 ML IV SCH; -SODIUM CHLORIDE 0.9% 500 ML 500 ML IV SCH; -SODIUM CHLORIDE 0.9% 500 ML 500 ML in EMPTY BAG 1 BAG IV PRN
[2020-11-09 07:22] VITALS: RESP 16; TEMP 97.9
[2020-11-09 07:23] LABS: Glucose,Whole Blood 167 mg/dL (75-99)
[2020-11-09] MEDS ORDERED: LIDOCAINE 1% (10MG/ML) FOR IV START INTRADERMA ONE (07:23)
[2020-11-09] MEDS ORDERED: PROPOFOL 10 MG/ML 20 ML VIAL IV ONE (07:34)
[2020-11-09] MEDS ORDERED: LIDOCAINE 1% INJ 10MG/ML (20 ML MDV) ONE (07:34)
--- NOTE | 2020-11-09 08:21 | P.PCN ---
Date of Procedure: 11/09/20 Preoperative Diagnosis: Screening Postoperative Diagnosis: Polyp of the transverse colon 2 Polyp of the distal ascending colon Large polyp versus mass of the proximal ascending colon Cecal polyp Diverticulosis Procedure(s) Performed: Colonoscopy with hot snare polypectomy and tattoo ink placement Anesthesia: MAC Surgeon: Simeon Rey Pathology: other (Polyp of the transverse colon, Polyp of the distal ascending colon, Polyp of the cecum, mass of the proximal ascending colon) Condition: stable Disposition: same day Indications for Procedure: 65-year-old female presents for screening colonoscopy. She was explained the risks, benefits and alternatives to the procedure prior to attending the end oscopy suite. Consent was provided. Operative Findings: Multiple polyps. Polyps were noted in the transverse colon 2. There was a polyp noted in the distal ascending colon. A large flat polyp versus mass was noted proximal ascending colon. Polyp of the cecum. significant amount of diverticulosis of sigmoid colon. Description of Procedure: The patient was brought into the endoscopy suite. She was placed in the left lateral decubitus issue and an adequate sedation was achieved using conscious sedation. A digital rectal exam was armed and mild internal hemorrhoids were palpated. An endoscope was then placed in the rectum and advanced to the cecum as identified by landmarks including the appendiceal orifice and the ileocecal valve. The prep was fair. The colonoscope was then slowly withdrawn, examining for any mucosal abnormalities. The cecum, ascending, transverse, descending and sigmoid colon were visualized adequately. Multiple polyps were found. A cecal polyp was found and this was removed with hot snare polypectomy. A distal descending colon polyp was found and this was also removed with hot snare polypectomy. 2 polyps are noted in the transverse colon and these were removed with hot snare polypectomy. Hemostasis was maintained for all of these removals. A large sessile mass versus polyp was noted in the proximal ascending colon just distal to the cecal cap. Multiple attempts were made to remove this polyp using hot snare polypectomy, however the entire removal was unsuccessful. These meal retrieval of portions of this polyp were sent for pathology. This area was also tattooed. Significant amount of diverticulosis was noted in the sigmoid colon. Retroflexion was performed in the rectum and mild internal hemorrhoids were visible. Excess air was removed, the colonoscope withdrawn and the procedure terminated. The patient was then transferred to the recovery unit in stable condition. We will set up a follow-up appointment to review pathology and make surgical decision on retrieval of the large sessile polyp vs mass of the proximal ascending colon.
[2020-11-09 08:45] VITALS: PULSE 72
[2020-11-09 09:05] VITALS: BP 161/82
== END 2020-11-09 09:21 | disposition home or self-care (01) ==
LOC: ORWHC2ENDO 06:44
PROVIDERS: ATTEND Surgery
DX: Z12.11 Encounter for screening for malignant neoplasm of colon (principal); D12.3 Benign neoplasm of transverse colon; D12.2 Benign neoplasm of ascending colon; D12.0 Benign neoplasm of cecum; K57.30 Diverticulosis of large intestine without perforation or abscess without bleeding; K64.8 Other hemorrhoids; Z88.1 Allergy status to other antibiotic agents; Z88.5 Allergy status to narcotic agent; I10 Essential (primary) hypertension; E78.5 Hyperlipidemia, unspecified; J44.9 Chronic obstructive pulmonary disease, unspecified; Z92.21 Personal history of antineoplastic chemotherapy; Z92.3 Personal history of irradiation; E11.9 Type 2 diabetes mellitus without complications; F32.9 Major depressive disorder, single episode, unspecified; K21.9 Gastro-esophageal reflux disease without esophagitis; Z90.710 Acquired absence of both cervix and uterus; Z79.51 Long term (current) use of inhaled steroids; Z79.84 Long term (current) use of oral hypoglycemic drugs; Z79.890 Hormone replacement therapy; Z79.899 Other long term (current) drug therapy; M19.90 Unspecified osteoarthritis, unspecified site; E07.9 Disorder of thyroid, unspecified; Z98.890 Other specified postprocedural states; Z82.49 Family history of ischemic heart disease and other diseases of the circulatory system; Z83.3 Family history of diabetes mellitus; Z80.9 Family history of malignant neoplasm, unspecified; Z85.118 Personal history of other malignant neoplasm of bronchus and lung
CPT/HCPCS: 45381; 45385; 88305; J2001; J2704; 44404

== ENCOUNTER → 2020-11-29 | Outpatient (CLI) | payer MEDICARE, OTHER ==
[2020-11-29 14:44] LABS: Basophils # (A) 0.1 k/uL (0-0.2); Basophils % (A) 2 %; Eosinophils # (A) 0.1 k/uL (0-0.7); Eosinophils % (A) 3 %; HCT 36.6 % (34.0-46.0); HGB 12.5 gm/dL (11.4-16.0); Lymphocytes # (A) 0.9 k/uL (1.0-4.8); Lymphocytes % (A) 17 %; MCH 29.9 pg (25.0-35.0); MCHC 34.1 g/dL (31.0-37.0); MCV 87.8 fL (80.0-100.0); Mean Platelet Volume 7.2; Monocytes # (A) 0.3 k/uL (0-1.0); Monocytes % (A) 6 %; Neutrophils # (A) 3.8 k/uL (1.3-7.7); Neutrophils % (A) 72 %; Platelet Count 232 k/uL (150-450); Poikilocytosis Slight; RBC 4.17 m/uL (3.80-5.40); RDW 15.5 % (11.5-15.5); WBC 5.3 k/uL (3.8-10.6)
[2020-11-29 14:55] LABS: Partial Thromboplastin Time 23.3 sec (22.0-30.0); Prothrombin Time 10.3 sec (9.0-12.0)
[2020-11-29 15:00] LABS: Calcium 9.2 mg/dL (8.4-10.2); Potassium 3.3 mmol/L (3.5-5.1)
== END | disposition home or self-care (01) ==
LOC: LABPAT 13:08
PROVIDERS: ATTEND Surgery
DX: Z01.818 Encounter for other preprocedural examination (principal); Q89.9 Congenital malformation, unspecified
CPT/HCPCS: 80048; 85025; 85610; 85730; 93005; 36415; U0003; C9803

== ENCOUNTER 2020-12-06 10:50 | Inpatient (IN) | payer MEDICARE, OTHER ==
[2020-11-29 16:24] VITALS: BMI 34.0
[~2020-12-06 10:50] MED LIST changes: +DEXAMETHASONE SOD PHOSPHATE 4 MG/ML 1 ML VIAL IV ONE; +HEPARIN SODIUM,PORCINE 5,000 UNIT/ML 1 ML VIAL SQ PRN; -LACTATED RINGERS 1,000 ML IV SCH; +LIDOCAINE 1% (10MG/ML) FOR IV START INTRADERMA PRN; +MIDAZOLAM 2 MG/2 ML VIAL IV PRN; +ONDANSETRON 4 MG/2 ML VIAL IVP ONE; +metroNIDAZOLE-NS PMX 500 MG in SALINE 1 100ML.BAG IVPB PRN
[2020-12-06 11:49] LABS: Glucose,Whole Blood 188 mg/dL (75-99)
[2020-12-06] MEDS: LACTATED RINGERS 1,000 ML IV SCH (11:50)
--- NOTE | 2020-12-06 12:22 | P.ANPRN ---
Procedure Note - Anesthesia - Nerve Block Performed Bilateral Rectus Abdominis Single Time Out Performed: Yes (1210) Date of Procedure: 12/06/20 Procedure Start Time: 12:11 Procedure Stop Time: 12:18 Location of Patient: PreOp Indication: Acute Post-Operative Pain, Requested by Surgeon Specifically requested for management of pain by : Simeon Rey Sedation Type: Sedate with meaningful contact maintained Preparation: Sterile Prep Position: Supine Catheter: None Needle Types: Pajunk Needle Gauge: 21 Ultrasound used to visualize needle placement: Yes Ultrasound used to observe medication spread: Yes Injectate: 0.5% Ropivacaine (see comment for volume) (15cc each side) Blood Aspirated: No Pain Paresthesia on Injection Noted: No Resistance on Injection: Normal Image Stored and Saved: Yes Events: Uneventful and Well Tolerated
[2020-12-06] MEDS ORDERED: SCOPOLAMINE 1.5MG/72HR PATCH TRANSDERM ONE (12:30)
[2020-12-06] MEDS ORDERED: SUCCINYLCHOLINE CHLORIDE 100 MG/5 ML SYR IV ONE (13:03)
[2020-12-06] MEDS ORDERED: MIDAZOLAM 2 MG/2 ML VIAL ONE (13:03)
[2020-12-06] MEDS ORDERED: NEOSTIGMINE 1 MG/ML 10 ML VIAL ONE (13:03)
[2020-12-06] MEDS ORDERED: fentaNYL (PF) 50 MCG/ML 2 ML AMP ONE (13:03)
[2020-12-06] MEDS ORDERED: ACETAMINOPHEN IV (For NPO) 1,000 MG/100 ML VIAL ONE (13:03)
[2020-12-06] MEDS ORDERED: GLYCOPYRROLATE 0.2 MG/ML 2 ML VIAL ONE (13:03)
[2020-12-06] MEDS ORDERED: ROPIVACAINE 5 MG/ML 30 ML VIAL ONE (13:03)
[2020-12-06] MEDS ORDERED: PROPOFOL 10 MG/ML 20 ML VIAL IV ONE (13:03)
[2020-12-06] MEDS ORDERED: SUGAMMADEX SODIUM 500 MG/5 ML SDV IV ONE (13:03)
[2020-12-06] MEDS ORDERED: LIDOCAINE 1% INJ 10MG/ML (20 ML MDV) ONE (13:03)
[2020-12-06] MEDS ORDERED: ROCURONIUM 10 MG/ML (10 ML VIAL) IV ONE (13:03)
[2020-12-06] MEDS ORDERED: KETAMINE 10 MG/ML 20 ML VIAL ONE (13:03)
[2020-12-06] MEDS ORDERED: LACTATED RINGERS 1,000 ML IV ONE (15:03)
[2020-12-06] MEDS ORDERED: ALBUTEROL NEBULIZED 2.5 MG/3 ML INHALATION PRN (15:21)
--- NOTE | 2020-12-06 15:30 | P.OP ---
Date of Procedure: 12/06/20 Preoperative Diagnosis: High-grade dysplasia, right colon Postoperative Diagnosis: High-grade dysplasia, right colon Procedure(s) Performed: Open right hemicolectomy Anesthesia: LISA Surgeon: Simeon Rey Pathology: other (Right colon) Condition: stable Disposition: floor Indications for Procedure: 65-year-old female underwent recent colonoscopy in which a large polypoid lesion was noted in the right colon. This area was tattooed and piecemeal removal of a polyp was attempted. 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 The patient is also noted to have a history of lung cancer. Case was discussed with oncology. Recommendation was made to the patient for a right hemicolectomy based on these findings and the patient's history of cancer. The patient was explained risks, benefits and alternatives to the procedure. She did opt for colectomy. Consent was provided prior to surgery. Operative Findings: Right colon noted to be tattooed, adhered to right abdominal wall. Description of Procedure: The patient was brought to the operating suite and placed in supine position on the operating table. Sedation was provided by anesthesia and the patient underwent endotracheal intubation. Prior to the procedure, the patient did refuse epidural placement. The patient was then prepped and draped in regular sterile fashion and Browning catheter was placed under sterile conditions. A midline incision was made and dissection was carried to the fascia. The fascia was then incised along the length of the incision. The small bowel was then packed into the left lower quadrant and the colon was clearly visualized. It was noted to have multiple adherent bands to the omentum and the right abdominal wall. The tattoo was clearly visualized in the right colon. Dissection was then carried with both blunt and cautery dissection to dissect the dense adhesions to the right colon. Once the adhesions were taken down, the white line of Toldt was dissected from the right peritoneal reflection and the right colon was medialized. The proximal and distal ends of transection were decided upon and the transection points were made with the LORIE-75 millimeter load stapler. Endoseal was then used to dissect the colon and mesentery and compl etely excised the specimen. Hemostasis was maintained throughout this process. At this point her condition was provided into the abdomen and suctioned. He was stasis was noted to be maintained. The anastomosis was then created between the proximal and distal ends as an ileocolic anastomosis. This was a [id number], functional end-to-end anastomosis. An enterotomy and colotomy was created and the stapler device was fired to create the anastomosis. The resulting colotomy was then closed using a TX 60 blue load stapler. The TX staple line was then imbricated using a 3-0 Vicryl suture. Hemostasis was maintained throughout this process. At this point, further irrigation was placed into the Moro cavity and suctioned. The bowel was returned into appropriate position. The midline fascia was then closed with looped PDS suture in running fashion. Skin was closed with skin ayden. Sterile surgical dressing was applied. The patient was taken to the postanesthesia care unit in stable condition.
[2020-12-06] MEDS: HYDROmorphone 0.5 MG/0.5 ML SYRINGE IVP PRN ×3 (15:34→16:05)
[2020-12-06] MEDS ORDERED: hydrALAZINE HCL 20 MG/ML 1 ML VIAL IVP ONE (16:24)
--- NOTE | 2020-12-06 17:16 | P.CONS ---
History of Present Illness - Reason for Consult Consult date: 12/06/20 - History of Present Illness Nisreen Reynaga, is a 65-year-old female who had a recent colonoscopy in which a large polypoid lesion was noted in the right colon. This area was tattooed and piecemeal removal of a polyp was attempted. 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 The patient is also noted to have a history of lung cancer. Case was discussed with oncology. Recommendation was made to the patient for a right hemicolectomy based on these findings and the patient's history of cancer. Patient had right hemicolectomy on 12/06/[address] Rey, she was admitted subsequently to medical floor, consultation was requested for management while hospitalized. Her past medical history is significant for history of hypertension, history of hyperlipidemia, history of left lung cancer, previous history of pneumonia, history of hypothyroidism, history of [id number]-[id number] diabetes mellitus, history of asthma. Patient was seen post surgery on the medical floor, she is alert and oriented 3 in no apparent distress, she is complaining of abdominal pain otherwise she denies any complaints there is no fever or chills no headache or dizziness no chest pain no shortness of breath no cough no nausea or vomiting no diarrhea no blood in the stools no burning with urination no frequency or urgency no he maturia. Past Medical History Past Medical History: Asthma, Cancer, Chest Pain / Angina, COPD, Diabetes Mellitus, Eye Disorder, GERD/Reflux, Hyperlipidemia, Hypertension, Musculoskeletal Disorder, Osteoarthritis (OA), Pneumonia, Thyroid Disorder Additional Past Medical History / Comment(s): chronic headaches, chronic sinus disease, sl cataracts, hx of insomnia, peripheral neuropathy, sciatica with chronic pain in BLE, NT LLE & Rt foot. Bronchitis, Lung Cancer 2019 w/ surg, chemo, radiation, immunotherapy. Lg polyp in colon 11/09/20. History of Any Multi-Drug Resistant Organisms: None Reported Past Surgical History: Appendectomy, Back Surgery, Hysterectomy Additional Past Surgical History / Comment(s): [facility] 02/24/19. COLONOSCOPY. PARTIAL LEFT LUNG REMOVED. Colonoscopy 11/09/20 Past Anesthesia/Blood Transfusion Reactions: Postoperative Nausea & Vomiting (PONV) Smoking Status: Former smoker - Past Family History Mother Family Medical History: No Reported History Medications and Allergies Home Medications Medication Instructions Recorded Confirmed Type Atorvastatin [Lipitor] 40 mg PO HS #30 tablet 01/11/19 12/06/20 Rx Albuterol Inhaler (Mhu) [Ventolin 1 - 2 puff INHALATION RT-Q6H PRN 02/22/19 12/06/20 History Hfa Inhaler (Mhu)] Acetaminophen Tab [Tylenol] 650 mg PO DIRECTED PRN 11/05/20 12/06/20 History Acetaminophen/Diphenhydramine 2 tab PO HS 11/05/20 12/06/20 History [Tylenol PM 500-25mg] Budesonide/Formoterol Fumarate 2 puff INHALATION BID 11/05/20 12/06/20 History [Symbicort 160-4.5 Mcg Inhaler] Levothyroxine Sodium 150 mcg PO SUMOTUTHFRSA 11/05/20 12/06/20 History Loratadine [Claritin] 10 mg PO HS 11/05/20 12/06/20 History metFORMIN HCL [Glucophage] 500 mg PO BID 11/05/20 11/29/20 History Metoprolol Tartrate [Lopressor] 25 mg PO DAILY 11/29/20 12/06/20 History Allergies Allergy/AdvReac Type Severity Reaction Status Date / Time codeine AdvReac Nausea & Verified 12/06/20 11:40 Vomiting fluoxetine [From Prozac] AdvReac LEG PAIN Verified 12/06/20 11:40 morphine AdvReac Vomiting Verified 12/06/20 11:40 Tetracyclines AdvReac Nausea & Verified 12/06/20 11:40 Vomiting Physical Exam Vitals: Vital Signs Temp Pulse Resp BP BP Pulse Ox 12/06/20 16:52 159/62 12/06/20 16:45 74 17 163/73 98 12/06/20 16:30 73 16 186/78 98 12/06/20 16:15 60 16 180/77 99 12/06/20 16:00 65 16 179/75 100 12/06/20 15:45 66 16 157/68 95 12/06/20 15:30 59 L 16 148/67 100 12/06/20 15:17 62 16 187/81 99 12/06/20 12:25 69 16 166/77 98 12/06/20 11:36 98.0 F 76 16 185/83 98 Intake and Output 12/06/20 12/06/20 12/06/20 06:59 14:59 22:59 Intake Total 950 200 Output Total 440 Balance 950 -240 Intake: IV 950 200 Output: Urine 400 Estimated Blood Loss 40 Other: Weight 98.8 kg In general patient is alert and oriented 3 in no apparent distress HEENT head normocephalic and atraumatic Neck is supple no JVD no goiter no lymphadenopathy Chest exam reveals crackles in both lung bases no wheezing Cardiac exam reveals regular heart sounds S1 and S2 no gallops no murmurs Abdomen is soft nontender no organomegaly with normal bowel sounds Extremity exam reveals no edema no cyanosis or clubbing Neurological examination reveals, no gross focal neurological deficits Results CBC & Chem 7: 12/06/20 11:48 Labs: Abnormal Lab Results - Last 24 Hours (Table) 12/06/20 Range/Units 11:46 POC Glucose (mg/dL) 188 H (75-99) mg/dL Assessment and Plan Plan: 1. Large colon polyp, with biopsy positive for high-grade dysplasia, patient underwent right hemicolectomy today 2. Underlying history of hypertension 3. Underlying history of hyperlipidemia 4. Underlying history of asthma 5. Previous history of lung cancer For pain management patient is maintained on IV Dilaudid For DVT prophylaxis she is on SCD stockings Home medications reviewed Will check labs in a.m. and follow closely
[2020-12-06] MEDS: METOCLOPRAMIDE 5 MG/ML 2 ML VIAL IVP SCH (17:43)
[2020-12-06] MEDS: HYDROmorphone 1 MG/ML 1 ML SYRINGE IVP PRN ×2 (17:43→22:05)
[2020-12-06] MEDS: ATORVASTATIN 40 MG TAB PO SCH (22:04)
[2020-12-06] MEDS: SYMBICORT 160-4.5 MCG INHALER INHALATION SCH (22:11)
[2020-12-07] MEDS: METOCLOPRAMIDE 5 MG/ML 2 ML VIAL IVP SCH ×5 (01:37→23:55)
[2020-12-07] MEDS: HYDROmorphone 1 MG/ML 1 ML SYRINGE IVP PRN ×4 (04:19→20:00)
[2020-12-07] MEDS: LEVOTHYROXINE 75 MCG TAB PO SCH (06:17)
[2020-12-07] MEDS: SYMBICORT 160-4.5 MCG INHALER INHALATION SCH ×2 (07:35→20:11)
[2020-12-07] MEDS: METOPROLOL TARTRATE 25 MG TAB PO SCH (08:22)
[2020-12-07] MEDS: PANTOPRAZOLE 40 MG/10 ML VIAL IVP SCH (08:22)
[2020-12-07 10:11] LABS: Basophils # (A) 0.04 X 10*3/uL (0.00-0.10); Basophils % (A) 0.4 %; Eosinophils # (A) 0.01 X 10*3/uL (0.04-0.35); Eosinophils % (A) 0.1 %; HCT 34.3 % (37.2-46.3); HGB 10.9 g/dL (12.0-15.0); Lymphocytes # (A) 1.02 X 10*3/uL (0.90-5.00); Lymphocytes % (A) 10.3 %; MCHC 31.8 g/dL (32.0-37.0); MCV 91.2 fL (80.0-97.0); Mean Platelet Volume 9.8 fL (9.5-12.2); Monocytes # (A) 0.72 X 10*3/uL (0.20-1.00); Monocytes % (A) 7.3 %; Neutrophils # (A) 8.11 X 10*3/uL (1.80-7.70); Neutrophils % (A) 81.6 %; Platelet Count 272 X 10*3/uL (140-440); RBC 3.76 X 10*6/uL (4.10-5.20); RDW 15.6 % (11.5-14.5); WBC 9.93 X 10*3/uL (4.50-10.00)
[2020-12-07 10:46] LABS: African American GFR (CKD) 54.9 (60.0-200.0); Anion Gap 10.5 mmol/L (4.00-12.00); Calcium 8.4 mg/dL (8.7-10.3); Carbon Dioxide 28.5 mmol/L (21.6-31.8); Non-African American GFR(CKD) 47.4 (60.0-200.0); Potassium 3.8 mmol/L (3.5-5.5); Total Bilirubin 0.8 mg/dL (0.3-1.2)
--- NOTE | 2020-12-07 12:23 | P.PN ---
Subjective Progress Note Date: 12/07/20 Patient seen and examined at bedside. States she is having some soreness around the incision. She has been out of bed. Browning catheter is currently in place. Denies any bowel function at this time. Objective - Vital Signs Vital signs: Vital Signs Temp 98.8 F 12/07/20 07:18 Pulse 73 12/07/20 10:49 Resp 17 12/07/20 10:49 BP 128/72 12/07/20 07:18 Pulse Ox 95 12/07/20 07:18 Intake & Output 12/06/20 12/07/20 12/07/20 18:59 06:59 18:59 Intake Total 1150 Output Total 440 350 Balance 710 -350 Weight 98.8 kg Intake: IV 1150 Output: Urine 400 350 Estimated Blood Loss 40 Other: Voiding Method Indwelling Catheter Indwelling Catheter # Voids 1 # Bowel Movements 0 - Constitutional General appearance: Present: cooperative, no acute distress - EENT Eyes: Present: PERRLA - Respiratory Details: No difficulty with respiration - Gastrointestinal Gastrointestinal Comment(s): Soft, appropriate tenderness, nondistended, no rebound, no guarding, midline incision with surgical dressing in place. - Psychiatric Psychiatric: Present: A&O x's 3 - Labs CBC & Chem 7: 12/07/20 07:21 12/07/20 07:21 Labs: Abnormal Lab Results - Last 24 Hours (Table) 11/29/20 12/07/20 12/07/20 Range/Units 13:42 07:21 07:21 RBC 3.76 L (4.10-5.20) X 10*6/uL Hgb 10.9 L (12.0-15.0) g/dL Hct 34.3 L (37.2-46.3) % MCHC 31.8 L (32.0-37.0) g/dL RDW 15.6 H (11.5-14.5) % Neutrophils # 8.11 H (1.80-7.70) X 10*3/uL Eosinophils # 0.01 L (0.04-0.35) X 10*3/uL Est GFR (CKD-EPI)AfAm 54.9 L (60.0-200.0) Est GFR (CKD-EPI)NonAf 47.4 L (60.0-200.0) BUN/Creatinine Ratio 10.00 L (12.00-20.00) Ratio Glucose 153 H (70-110) mg/dL Calcium 8.4 L (8.7-10.3) mg/dL Total Protein 6.0 L (6.2-8.2) g/dL Crossmatch See Detail Assessment and Plan Plan: Postoperative day #1, right hemicolectomy - Discontinue Browning catheter, discussed with nursing - Continue to increase activity - Continue clear liquid diet - Medical recommendations appreciated - Pulmonary consult placed based on patient's chronic pulmonary conditions - Entereg, await bowel function - Patient would like to avoid oral opiates as these make her extremely nauseous
--- NOTE | 2020-12-07 13:40 | P.PN ---
Subjective Progress Note Date: 12/07/20 Nisreen Reynaga, is a 65-year-old female who had a recent colonoscopy in which a large polypoid lesion was noted in the right colon. This area was tattooed and piecemeal removal of a polyp was attempted. 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 The patient is also noted to have a history of lung cancer. Case was discussed with oncology. Recommendation was made to the patient for a right hemicolectomy based on these findings and the patient's history of cancer. Patient had right hemicolectomy on 12/06/[address] Rey, she was admitted subsequently to medical floor, consultation was requested for management while hospitalized. Her past medical history is significant for history of hypertension, history of hyperlipidemia, history of left lung cancer, previous history of pneumonia, history of hypothyroidism, history of [id number] diabetes mellitus, history of asthma. Patient was seen post surgery on the medical floor, she is alert and oriented 3 in no apparent distress, she is complaining of abdominal pain otherwise she denies any complaints there is no fever or chills no headache or dizziness no chest pain no shortness of breath no cough no nausea or vomiting no diarrhea no blood in the stools no burning with urination no frequency or urgency no hematuria. On 12/07/2020 patient was seen and examined on the medical floor she is alert and oriented 3 in no distress she is complaining of pain in the abdomen otherwise she denies any complaints there is no fever or chills no headache or dizziness no chest pain no shortness of breath no cough no nausea or vomiting no diarrhea no blood in the stools no burning with urination no frequency or urgency and no hematuria. Browning catheter was removed today patient is started on insulin to sliding scale recheck labs in a.m. continue with current management otherwise Objective - Vital Signs Vital signs: Vital Signs Temp 98.8 F 12/07/20 07:18 Pulse 73 12/07/20 10:49 Resp 17 12/07/20 10:49 BP 128/72 12/07/20 07:18 Pulse Ox 95 12/07/20 07:18 Intake & Output 12/06/20 12/07/20 12/07/20 18:59 06:59 18:59 Intake Total 1150 Output Total 440 350 Balance 710 -350 Weight 98.8 kg Intake: IV 1150 Output: Urine 400 350 Estimated Blood Loss 40 Other: Voiding Method Indwelling Catheter Indwelling Catheter # Voids 1 # Bowel Movements 0 - Exam In general patient is alert and oriented 3 in no apparent distress HEENT head normocephalic and atraumatic Neck is supple no JVD no goiter no lymphadenopathy Chest exam reveals crackles in both lung bases no wheezing Cardiac exam reveals regular heart sounds S1 and S2 no gallops no murmurs Abdomen is soft nontender no organomegaly with normal bowel sounds Extremity exam reveals no edema no cyanosis or clubbing Neurological examination reveals, no gross focal neurological deficits - Labs CBC & Chem 7: 12/07/20 07:21 12/07/20 07:21 Labs: Abnormal Lab Results - Last 24 Hours (Table) 11/29/20 12/07/20 12/07/20 Range/Units 13:42 07:21 07:21 RBC 3.76 L (4.10-5.20) X 10*6/uL Hgb 10.9 L (12.0-15.0) g/dL Hct 34.3 L (37.2-46.3) % MCHC 31.8 L (32.0-37.0) g/dL RDW 15.6 H (11.5-14.5) % Neutrophils # 8.11 H (1.80-7.70) X 10*3/uL Eosinophils # 0.01 L (0.04-0.35) X 10*3/uL Est GFR (CKD-EPI)AfAm 54.9 L (60.0-200.0) Est GFR (CKD-EPI)NonAf 47.4 L (60.0-200.0) BUN/Creatinine Ratio 10.00 L (12.00-20.00) Ratio Glucose 153 H (70-110) mg/dL Calcium 8.4 L (8.7-10.3) mg/dL Total Protein 6.0 L (6.2-8.2) g/dL Crossmatch See Detail Assessment and Plan Plan: 1. Large colon polyp, with biopsy positive for high-grade dysplasia, patient underwent right hemicolectomy today 2. Underlying history of hypertension 3. Underlying history of hyperlipidemia 4. Underlying history of asthma 5. Previous history of lung cancer For pain management patient is maintained on IV Dilaudid For DVT prophylaxis she is on SCD stockings Home medications reviewed Will check labs in a.m. and follow closely
[2020-12-07] MEDS: ALVIMOPAN 12 MG CAPSULE PO SCH ×2 (14:29→20:53)
[2020-12-07] MEDS: LACTATED RINGERS 1,000 ML IV SCH ×3 (14:45→23:56)
[2020-12-07 17:10] LABS: Glucose,Whole Blood 166 mg/dL (75-99)
[2020-12-07] MEDS: INSULIN ASPART (NovoLOG) 100 UNIT/ML VIAL SQ SCH ×2 (18:07→20:53)
[2020-12-07 20:48] LABS: Glucose,Whole Blood 152 mg/dL (75-99)
[2020-12-07] MEDS: ATORVASTATIN 40 MG TAB PO SCH (20:52)
[2020-12-08] MEDS: HYDROmorphone 1 MG/ML 1 ML SYRINGE IVP PRN ×4 (02:07→21:36)
[2020-12-08] MEDS: METOCLOPRAMIDE 5 MG/ML 2 ML VIAL IVP SCH ×3 (06:15→18:11)
[2020-12-08 07:37] LABS: Glucose,Whole Blood 162 mg/dL (75-99)
[2020-12-08] MEDS: SYMBICORT 160-4.5 MCG INHALER INHALATION SCH ×2 (07:56→20:11)
[2020-12-08] MEDS: INSULIN ASPART (NovoLOG) 100 UNIT/ML VIAL SQ SCH ×4 (08:34→21:33)
[2020-12-08] MEDS: LEVOTHYROXINE 75 MCG TAB PO SCH (08:34)
[2020-12-08] MEDS: METOPROLOL TARTRATE 25 MG TAB PO SCH (08:34)
[2020-12-08] MEDS: PANTOPRAZOLE 40 MG/10 ML VIAL IVP SCH (08:35)
[2020-12-08] MEDS: ALVIMOPAN 12 MG CAPSULE PO SCH ×2 (08:35→21:33)
[2020-12-08] MEDS: LACTATED RINGERS 1,000 ML IV SCH ×2 (08:35→16:12)
[2020-12-08 11:46] LABS: Basophils # (A) 0.07 X 10*3/uL (0.00-0.10); Eosinophils # (A) 0.02 X 10*3/uL (0.04-0.35); Eosinophils % (A) 0.3 %; HCT 33.7 % (37.2-46.3); HGB 10.4 g/dL (12.0-15.0); Lymphocytes # (A) 0.98 X 10*3/uL (0.90-5.00); Lymphocytes % (A) 14.4 %; MCH 28.7 pg (27.0-32.0); MCHC 30.9 g/dL (32.0-37.0); MCV 93.1 fL (80.0-97.0); Mean Platelet Volume 9.6 fL (9.5-12.2); Monocytes # (A) 0.51 X 10*3/uL (0.20-1.00); Monocytes % (A) 7.5 %; Neutrophils # (A) 5.17 X 10*3/uL (1.80-7.70); Neutrophils % (A) 76.2 %; Platelet Count 231 X 10*3/uL (140-440); RBC 3.62 X 10*6/uL (4.10-5.20); RDW 15.9 % (11.5-14.5); WBC 6.79 X 10*3/uL (4.50-10.00)
[2020-12-08 11:48] LABS: African American GFR (CKD) 54.9 (60.0-200.0); Albumin 4.1 g/dL (3.80-4.90); Albumin/Globulin Ratio 2.16 (1.60-3.17); Anion Gap 10.1 mmol/L (4.00-12.00); BUN/Creat Ratio 7.5 Ratio (12.00-20.00); Calcium 8.6 mg/dL (8.7-10.3); Carbon Dioxide 28.9 mmol/L (21.6-31.8); Globulin 1.9 g/dL (1.6-3.3); Non-African American GFR(CKD) 47.4 (60.0-200.0); Potassium 3.2 mmol/L (3.5-5.5); Total Bilirubin 1.2 mg/dL (0.2-1.2)
[2020-12-08 12:05] LABS: Glucose,Whole Blood 185 mg/dL (75-99)
--- NOTE | 2020-12-08 12:15 | P.PN ---
Subjective Progress Note Date: 12/08/20 Patient doing well, no bowel function. pain controlled, ambulating in halls Objective - Vital Signs Vital signs: Vital Signs Temp 98.8 F 12/08/20 05:36 Pulse 95 12/08/20 08:00 Resp 18 12/08/20 08:00 BP 159/74 12/08/20 05:36 Pulse Ox 93 L 12/08/20 05:36 Intake & Output 12/07/20 12/08/20 12/08/20 18:59 06:59 18:59 Intake Total 1100 1000 Balance 1100 1000 Intake: Intake, IV Titration 1000 Amount Lactated Ringers 1,000 ml 1000 @ 125 mls/hr IV .Q8H [facility] Rx#:[id number] Oral 1100 Other: Voiding Method Toilet Toilet Toilet # Voids 2 3 - Constitutional General appearance: Present: cooperative - Gastrointestinal Gastrointestinal Comment(s): NT, ND, incision CDI - Psychiatric Psychiatric: Present: A&O x's 3 - Labs CBC & Chem 7: 12/08/20 06:32 12/08/20 06:32 Labs: Abnormal Lab Results - Last 24 Hours (Table) 12/07/20 12/07/20 12/08/20 Range/Units 17:00 20:45 06:32 RBC 3.62 L (4.10-5.20) X 10*6/uL Hgb 10.4 L (12.0-15.0) g/dL Hct 33.7 L (37.2-46.3) % MCHC 30.9 L (32.0-37.0) g/dL RDW 15.9 H (11.5-14.5) % Eosinophils # 0.02 L (0.04-0.35) X 10*3/uL Potassium (3.5-5.5) mmol/L Est GFR (CKD-EPI)AfAm (60.0-200.0) Est GFR (CKD-EPI)NonAf (60.0-200.0) BUN/Creatinine Ratio (12.00-20.00) Ratio Glucose (70-110) mg/dL POC Glucose (mg/dL) 166 H 152 H (75-99) mg/dL Calcium (8.7-10.3) mg/dL Total Protein (6.2-8.2) g/dL 12/08/20 12/08/20 12/08/20 Range/Units 06:32 07:20 11:47 RBC (4.10-5.20) X 10*6/uL Hgb (12.0-15.0) g/dL Hct (37.2-46.3) % MCHC (32.0-37.0) g/dL RDW (11.5-14.5) % Eosinophils # (0.04-0.35) X 10*3/uL Potassium 3.2 L (3.5-5.5) mmol/L Est GFR (CKD-EPI)AfAm 54.9 L (60.0-200.0) Est GFR (CKD-EPI)NonAf 47.4 L (60.0-200.0) BUN/Creatinine Ratio 7.50 L (12.00-20.00) Ratio Glucose 152 H (70-110) mg/dL POC Glucose (mg/dL) 162 H 185 H (75-99) mg/dL Calcium 8.6 L (8.7-10.3) mg/dL Total Protein 6.0 L (6.2-8.2) g/dL Assessment and Plan Assessment: S/P right hemicolectomy Plan: continue ambulating, await bowel function
[2020-12-08 13:43] LABS: Hemoglobin A1C 6.6 % (4.0-6.0)
--- NOTE | 2020-12-08 14:47 | P.PN ---
Subjective Progress Note Date: 12/08/20 Nisreen Reynaga, is a 65-year-old female who had a recent colonoscopy in which a large polypoid lesion was noted in the right colon. This area was tattooed and piecemeal removal of a polyp was attempted. 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 The patient is also noted to have a history of lung cancer. Case was discussed with oncology. Recommendation was made to the patient for a right hemicolectomy based on these findings and the patient's history of cancer. Patient had right hemicolectomy on 12/06/[address] Rey, she was admitted subsequently to medical floor, consultation was requested for management while hospitalized. Her past medical history is significant for history of hypertension, history of hyperlipidemia, history of left lung cancer, previous history of pneumonia, history of hypothyroidism, history of omo-uyisnlu-fnikpewux diabetes mellitus, history of asthma. Patient was seen post surgery on the medical floor, she is alert and oriented 3 in no apparent distress, she is complaining of abdominal pain otherwise she denies any complaints there is no fever or chills no headache or dizziness no chest pain no shortness of breath no cough no nausea or vomiting no diarrhea no blood in the stools no burning with urination no frequency or urgency no hematuria. On 12/07/2020 patient was seen and examined on the medical floor she is alert and oriented 3 in no distress she is complaining of pain in the abdomen otherwise she denies any complaints there is no fever or chills no headache or dizziness no chest pain no shortness of breath no cough no nausea or vomiting no diarrhea no blood in the stools no burning with urination no frequency or urgency and no hematuria. Browning catheter was removed today patient is started on insulin to sliding scale recheck labs in a.m. continue with current management otherwise On 12/08/2020 patient was seen and examined on the medical floor, she is alert and oriented 3 in no apparent distress there is no fever or chills no headache or dizziness no chest pain no shortness of breath no cough no nausea or vomiting no diarrhea no burning with urination no frequency or urgency and no hematuria, she has mild pain in the abdomen site of surgery otherwise she denies any complaints Objective - Vital Signs Vital signs: Vital Signs Temp 98.3 F 12/08/20 12:38 Pulse 83 12/08/20 12:38 Resp 17 12/08/20 12:38 BP 162/80 12/08/20 12:38 Pulse Ox 92 L 12/08/20 12:38 Intake & Output 12/07/20 12/08/20 12/08/20 18:59 06:59 18:59 Intake Total 1100 1000 Balance 1100 1000 Intake: Intake, IV Titration 1000 Amount Lactated Ringers 1,000 ml 1000 @ 125 mls/hr IV .Q8H [facility] Rx#:[id number] Oral 1100 Other: Voiding Method Toilet Toilet Toilet # Voids 2 3 - Exam In general patient is alert and oriented 3 in no apparent distress HEENT head normocephalic and atraumatic Neck is supple no JVD no goiter no lymphadenopathy Chest exam reveals crackles in both lung bases no wheezing Cardiac exam reveals regular heart sounds S1 and S2 no gallops no murmurs Abdomen is soft nontender no organomegaly with normal bowel sounds Extremity exam reveals no edema no cyanosis or clubbing Neurological examination reveals, no gross focal neurological deficits - Labs CBC & Chem 7: 12/08/20 06:32 12/08/20 06:32 Labs: Abnormal Lab Results - Last 24 Hours (Table) 12/07/20 12/07/20 12/08/20 Range/Units 17:00 20:45 06:32 RBC 3.62 L (4.10-5.20) X 10*6/uL Hgb 10.4 L (12.0-15.0) g/dL Hct 33.7 L (37.2-46.3) % MCHC 30.9 L (32.0-37.0) g/dL RDW 15.9 H (11.5-14.5) % Eosinophils # 0.02 L (0.04-0.35) X 10*3/uL Potassium (3.5-5.5) mmol/L Est GFR (CKD-EPI)AfAm (60.0-200.0) Est GFR (CKD-EPI)NonAf (60.0-200.0) BUN/Creatinine Ratio (12.00-20.00) Ratio Glucose (70-110) mg/dL POC Glucose (mg/dL) 166 H 152 H (75-99) mg/dL Hemoglobin A1c (4.0-6.0) % Calcium (8.7-10.3) mg/dL Total Protein (6.2-8.2) g/dL 12/08/20 12/08/20 12/08/20 Range/Units 06:32 06:32 07:20 RBC (4.10-5.20) X 10*6/uL Hgb (12.0-15.0) g/dL Hct (37.2-46.3) % MCHC (32.0-37.0) g/dL RDW (11.5-14.5) % Eosinophils # (0.04-0.35) X 10*3/uL Potassium 3.2 L (3.5-5.5) mmol/L Est GFR (CKD-EPI)AfAm 54.9 L (60.0-200.0) Est GFR (CKD-EPI)NonAf 47.4 L (60.0-200.0) BUN/Creatinine Ratio 7.50 L (12.00-20.00) Ratio Glucose 152 H (70-110) mg/dL POC Glucose (mg/dL) 162 H (75-99) mg/dL Hemoglobin A1c 6.6 H (4.0-6.0) % Calcium 8.6 L (8.7-10.3) mg/dL Total Protein 6.0 L (6.2-8.2) g/dL 12/08/20 Range/Units 11:47 RBC (4.10-5.20) X 10*6/uL Hgb (12.0-15.0) g/dL Hct (37.2-46.3) % MCHC (32.0-37.0) g/dL RDW (11.5-14.5) % Eosinophils # (0.04-0.35) X 10*3/uL Potassium (3.5-5.5) mmol/L Est GFR (CKD-EPI)AfAm (60.0-200.0) Est GFR (CKD-EPI)NonAf (60.0-200.0) BUN/Creatinine Ratio (12.00-20.00) Ratio Glucose (70-110) mg/dL POC Glucose (mg/dL) 185 H (75-99) mg/dL Hemoglobin A1c (4.0-6.0) % Calcium (8.7-10.3) mg/dL Total Protein (6.2-8.2) g/dL Assessment and Plan Plan: 1. Large colon polyp, with biopsy positive for high-grade dysplasia, patient underwent right hemicolectomy today 2. Underlying history of hypertension 3. Underlying history of hyperlipidemia 4. Underlying history of asthma 5. Previous history of lung cancer For pain management patient is maintained on IV Dilaudid For DVT prophylaxis she is on SCD stockings Home medications reviewed Will check labs in a.m. and follow closely
[2020-12-08 17:17] LABS: Glucose,Whole Blood 173 mg/dL (75-99)
[2020-12-08 21:07] LABS: Glucose,Whole Blood 171 mg/dL (75-99)
[2020-12-08] MEDS: ATORVASTATIN 40 MG TAB PO SCH (21:33)
[2020-12-09] MEDS: METOCLOPRAMIDE 5 MG/ML 2 ML VIAL IVP SCH ×4 (00:02→17:10)
[2020-12-09] MEDS: LACTATED RINGERS 1,000 ML IV SCH ×3 (03:02→17:14)
[2020-12-09] MEDS: HYDROmorphone 1 MG/ML 1 ML SYRINGE IVP PRN ×5 (03:02→20:41)
[2020-12-09] MEDS: LEVOTHYROXINE 75 MCG TAB PO SCH (06:09)
[2020-12-09 07:21] LABS: Glucose,Whole Blood 148 mg/dL (75-99)
[2020-12-09] MEDS: PANTOPRAZOLE 40 MG/10 ML VIAL IVP SCH (07:38)
[2020-12-09] MEDS: METOPROLOL TARTRATE 25 MG TAB PO SCH (07:39)
[2020-12-09] MEDS: ALVIMOPAN 12 MG CAPSULE PO SCH ×2 (07:39→20:23)
[2020-12-09] MEDS: INSULIN ASPART (NovoLOG) 100 UNIT/ML VIAL SQ SCH ×4 (07:39→20:23)
[2020-12-09] MEDS: SYMBICORT 160-4.5 MCG INHALER INHALATION SCH ×2 (08:42→20:13)
--- NOTE | 2020-12-09 10:38 | P.PN ---
Subjective Progress Note Date: 12/09/20 Nisreen Reynaga, is a 65-year-old female who had a recent colonoscopy in which a large polypoid lesion was noted in the right colon. This area was tattooed and piecemeal removal of a polyp was attempted. 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 The patient is also noted to have a history of lung cancer. Case was discussed with oncology. Recommendation was made to the patient for a right hemicolectomy based on these findings and the patient's history of cancer. Patient had right hemicolectomy on 12/06/[address] Rey, she was admitted subsequently to medical floor, consultation was requested for management while hospitalized. Her past medical history is significant for history of hypertension, history of hyperlipidemia, history of left lung cancer, previous history of pneumonia, history of hypothyroidism, history of alh-wwxdhni-wvygbahte diabetes mellitus, history of asthma. Patient was seen post surgery on the medical floor, she is alert and oriented 3 in no apparent distress, she is complaining of abdominal pain otherwise she denies any complaints there is no fever or chills no headache or dizziness no chest pain no shortness of breath no cough no nausea or vomiting no diarrhea no blood in the stools no burning with urination no frequency or urgency no hematuria. On 12/07/2020 patient was seen and examined on the medical floor she is alert and oriented 3 in no distress she is complaining of pain in the abdomen otherwise she denies any complaints there is no fever or chills no headache or dizziness no chest pain no shortness of breath no cough no nausea or vomiting no diarrhea no blood in the stools no burning with urination no frequency or urgency and no hematuria. Browning catheter was removed today patient is started on insulin to sliding scale recheck labs in a.m. continue with current management otherwise On 12/08/2020 patient was seen and examined on the medical floor, she is alert and oriented 3 in no apparent distress there is no fever or chills no headache or dizziness no chest pain no shortness of breath no cough no nausea or vomiting no diarrhea no burning with urination no frequency or urgency and no hematuria, she has mild pain in the abdomen site of surgery otherwise she denies any complaints on 12/09/2020 patient is alert and oriented 3. Patient maintained clear liquid diet. Patient denies chest pain or shortness breath. Patient denies nausea vomiting or diarrhea. Denies urinary burning or frequency. Patient does have active bowel sounds. No bowel movement yet. Objective - Vital Signs Vital signs: Vital Signs Temp 98.4 F 12/09/20 04:40 Pulse 89 12/09/20 04:40 Resp 16 12/09/20 04:40 BP 174/81 12/09/20 04:40 Pulse Ox 92 L 12/09/20 04:40 Intake & Output 12/08/20 12/09/20 12/09/20 18:59 06:59 18:59 Intake Total 580 Balance 580 Intake: Oral 580 Other: Voiding Method Toilet Toilet # Voids 3 2 # Bowel Movements 0 - Exam In general patient is alert and oriented 3 in no apparent distress HEENT head normocephalic and atraumatic Neck is supple no JVD no goiter no lymphadenopathy Chest exam reveals crackles in both lung bases no wheezing Cardiac exam reveals regular heart sounds S1 and S2 no gallops no murmurs Abdomen is soft nontender no organomegaly with normal bowel sounds Extremity exam reveals no edema no cyanosis or clubbing Neurological examination reveals, no gross focal neurological deficits - Labs CBC & Chem 7: 12/08/20 06:32 12/08/20 06:32 Labs: Abnormal Lab Results - Last 24 Hours (Table) 12/08/20 12/08/20 12/08/20 Range/Units 06:32 06:32 06:32 RBC 3.62 L (4.10-5.20) X 10*6/uL Hgb 10.4 L (12.0-15.0) g/dL Hct 33.7 L (37.2-46.3) % MCHC 30.9 L (32.0-37.0) g/dL RDW 15.9 H (11.5-14.5) % Eosinophils # 0.02 L (0.04-0.35) X 10*3/uL Potassium 3.2 L (3.5-5.5) mmol/L Est GFR (CKD-EPI)AfAm 54.9 L (60.0-200.0) Est GFR (CKD-EPI)NonAf 47.4 L (60.0-200.0) BUN/Creatinine Ratio 7.50 L (12.00-20.00) Ratio Glucose 152 H (70-110) mg/dL POC Glucose (mg/dL) (75-99) mg/dL Hemoglobin A1c 6.6 H (4.0-6.0) % Calcium 8.6 L (8.7-10.3) mg/dL Total Protein 6.0 L (6.2-8.2) g/dL 12/08/20 12/08/20 12/08/20 Range/Units 11:47 17:12 20:43 RBC (4.10-5.20) X 10*6/uL Hgb (12.0-15.0) g/dL Hct (37.2-46.3) % MCHC (32.0-37.0) g/dL RDW (11.5-14.5) % Eosinophils # (0.04-0.35) X 10*3/uL Potassium (3.5-5.5) mmol/L Est GFR (CKD-EPI)AfAm (60.0-200.0) Est GFR (CKD-EPI)NonAf (60.0-200.0) BUN/Creatinine Ratio (12.00-20.00) Ratio Glucose (70-110) mg/dL POC Glucose (mg/dL) 185 H 173 H 171 H (75-99) mg/dL Hemoglobin A1c (4.0-6.0) % Calcium (8.7-10.3) mg/dL Total Protein (6.2-8.2) g/dL 12/09/20 Range/Units 07:18 RBC (4.10-5.20) X 10*6/uL Hgb (12.0-15.0) g/dL Hct (37.2-46.3) % MCHC (32.0-37.0) g/dL RDW (11.5-14.5) % Eosinophils # (0.04-0.35) X 10*3/uL Potassium (3.5-5.5) mmol/L Est GFR (CKD-EPI)AfAm (60.0-200.0) Est GFR (CKD-EPI)NonAf (60.0-200.0) BUN/Creatinine Ratio (12.00-20.00) Ratio Glucose (70-110) mg/dL POC Glucose (mg/dL) 148 H (75-99) mg/dL Hemoglobin A1c (4.0-6.0) % Calcium (8.7-10.3) mg/dL Total Protein (6.2-8.2) g/dL Assessment and Plan Plan: 1. Large colon polyp, with biopsy positive for high-grade dysplasia, patient underwent right hemicolectomy. Postop day 3 2. Underlying history of hypertension 3. Underlying history of hyperlipidemia 4. Underlying history of asthma 5. Previous history of lung cancer For pain management patient is maintained on IV Dilaudid For DVT prophylaxis she is on SCD stockings Home medications reviewed Will check labs in a.m. and follow closely
[2020-12-09 10:39] LABS: Basophils # (A) 0.06 X 10*3/uL (0.00-0.10); Eosinophils # (A) 0.06 X 10*3/uL (0.04-0.35); HCT 31.7 % (37.2-46.3); HGB 10.2 g/dL (12.0-15.0); Lymphocytes # (A) 0.73 X 10*3/uL (0.90-5.00); Lymphocytes % (A) 12.5 %; MCH 29.5 pg (27.0-32.0); MCHC 32.2 g/dL (32.0-37.0); MCV 91.6 fL (80.0-97.0); Mean Platelet Volume 9.6 fL (9.5-12.2); Monocytes # (A) 0.38 X 10*3/uL (0.20-1.00); Monocytes % (A) 6.5 %; Neutrophils # (A) 4.57 X 10*3/uL (1.80-7.70); Neutrophils % (A) 78.5 %; Platelet Count 256 X 10*3/uL (140-440); RBC 3.46 X 10*6/uL (4.10-5.20); RDW 15.6 % (11.5-14.5); WBC 5.83 X 10*3/uL (4.50-10.00)
[2020-12-09 11:02] LABS: African American GFR (CKD) 68.5 (60.0-200.0); Anion Gap 10.2 mmol/L (4.00-12.00); Calcium 8.8 mg/dL (8.7-10.3); Carbon Dioxide 30.8 mmol/L (21.6-31.8); Non-African American GFR(CKD) 59.1 (60.0-200.0); Potassium 3.3 mmol/L (3.5-5.5)
[2020-12-09 12:06] LABS: Glucose,Whole Blood 178 mg/dL (75-99)
--- NOTE | 2020-12-09 14:45 | P.PN ---
Subjective Progress Note Date: 12/09/20 Patient doing well, passing flatus no BM. pain controlled, ambulating in halls Objective - Vital Signs Vital signs: Vital Signs Temp 98 F 12/09/20 12:35 Pulse 76 12/09/20 12:35 Resp 17 12/09/20 12:35 BP 161/76 12/09/20 12:35 Pulse Ox 93 L 12/09/20 12:35 Intake & Output 12/08/20 12/09/20 12/09/20 18:59 06:59 18:59 Intake Total 580 Balance 580 Intake: Oral 580 Other: Voiding Method Toilet Toilet Toilet # Voids 3 2 # Bowel Movements 0 - Constitutional General appearance: Present: cooperative - Cardiovascular Rhythm: regular - Gastrointestinal Gastrointestinal Comment(s): S/NT.ND Incision CDI - Labs CBC & Chem 7: 12/09/20 04:52 12/09/20 04:52 Labs: Abnormal Lab Results - Last 24 Hours (Table) 12/08/20 12/08/20 12/09/20 Range/Units 17:12 20:43 04:52 RBC 3.46 L (4.10-5.20) X 10*6/uL Hgb 10.2 L (12.0-15.0) g/dL Hct 31.7 L (37.2-46.3) % RDW 15.6 H (11.5-14.5) % Lymphocytes # 0.73 L (0.90-5.00) X 10*3/uL Potassium (3.5-5.5) mmol/L BUN (9.0-27.0) mg/dL Est GFR (CKD-EPI)NonAf (60.0-200.0) BUN/Creatinine Ratio (12.00-20.00) Ratio Glucose (70-110) mg/dL POC Glucose (mg/dL) 173 H 171 H (75-99) mg/dL 12/09/20 12/09/20 12/09/20 Range/Units 04:52 07:18 11:55 RBC (4.10-5.20) X 10*6/uL Hgb (12.0-15.0) g/dL Hct (37.2-46.3) % RDW (11.5-14.5) % Lymphocytes # (0.90-5.00) X 10*3/uL Potassium 3.3 L (3.5-5.5) mmol/L BUN 6.0 L (9.0-27.0) mg/dL Est GFR (CKD-EPI)NonAf 59.1 L (60.0-200.0) BUN/Creatinine Ratio 6.00 L (12.00-20.00) Ratio Glucose 142 H (70-110) mg/dL POC Glucose (mg/dL) 148 H 178 H (75-99) mg/dL Assessment and Plan Assessment: S/P right hemicolectomy Plan: continue ambulating, await bowel function, advance to fulls as tolerated
[2020-12-09 17:07] LABS: Glucose,Whole Blood 170 mg/dL (75-99)
[2020-12-09 20:10] LABS: Glucose,Whole Blood 176 mg/dL (75-99)
[2020-12-09] MEDS: ATORVASTATIN 40 MG TAB PO SCH (20:23)
[2020-12-10] MEDS: LACTATED RINGERS 1,000 ML IV SCH ×3 (00:10→18:18)
[2020-12-10] MEDS: METOCLOPRAMIDE 5 MG/ML 2 ML VIAL IVP SCH ×4 (00:28→17:23)
[2020-12-10] MEDS: HYDROmorphone 1 MG/ML 1 ML SYRINGE IVP PRN (03:06)
[2020-12-10] MEDS: LEVOTHYROXINE 75 MCG TAB PO SCH (05:30)
[2020-12-10 07:16] LABS: Glucose,Whole Blood 144 mg/dL (75-99)
[2020-12-10] MEDS: SYMBICORT 160-4.5 MCG INHALER INHALATION SCH ×2 (07:33→19:32)
[2020-12-10] MEDS: METOPROLOL TARTRATE 25 MG TAB PO SCH (08:01)
[2020-12-10] MEDS: PANTOPRAZOLE 40 MG/10 ML VIAL IVP SCH (08:02)
[2020-12-10] MEDS: INSULIN ASPART (NovoLOG) 100 UNIT/ML VIAL SQ SCH ×4 (08:02→22:27)
[2020-12-10] MEDS: ALVIMOPAN 12 MG CAPSULE PO SCH ×2 (08:04→20:44)
--- NOTE | 2020-12-10 08:29 | P.PN ---
Subjective Progress Note Date: 12/10/20 Patient seen and examined at bedside. Patient sitting in bed. States she is tired this morning. States she is ambulating to and from the bathroom and urinating. She states she is having flatus. Denies any bowel movement. Denies nausea or vomiting. Objective - Vital Signs Vital signs: Vital Signs Temp 98.4 F 12/10/20 05:00 Pulse 91 12/10/20 05:00 Resp 16 12/10/20 05:00 BP 174/83 12/10/20 05:00 Pulse Ox 96 12/10/20 05:00 Intake & Output 12/09/20 12/10/20 12/10/20 18:59 06:59 18:59 Intake Total 400 1510 Balance 400 1510 Intake: Intake, IV Titration 400 600 Amount Lactated Ringers 1,000 ml 400 @ 0 mls/hr IV .STK-[facility] Rx#:[id number] Lactated Ringers 1,000 ml 600 @ 125 mls/hr IV .Q8H [facility] Rx#:[id number] Oral 910 Other: Voiding Method Toilet # Voids 3 - Constitutional General appearance: Present: cooperative, no acute distress - Gastrointestinal Gastrointestinal Comment(s): Soft, appropriate tenderness, nondistended, no rebound, no guarding, midline incision clean, dry and intact - Psychiatric Psychiatric: Present: A&O x's 3 - Labs CBC & Chem 7: 12/09/20 04:52 12/09/20 04:52 Labs: Abnormal Lab Results - Last 24 Hours (Table) 12/09/20 12/09/20 12/09/20 Range/Units 04:52 04:52 11:55 RBC 3.46 L (4.10-5.20) X 10*6/uL Hgb 10.2 L (12.0-15.0) g/dL Hct 31.7 L (37.2-46.3) % RDW 15.6 H (11.5-14.5) % Lymphocytes # 0.73 L (0.90-5.00) X 10*3/uL Potassium 3.3 L (3.5-5.5) mmol/L BUN 6.0 L (9.0-27.0) mg/dL Est GFR (CKD-EPI)NonAf 59.1 L (60.0-200.0) BUN/Creatinine Ratio 6.00 L (12.00-20.00) Ratio Glucose 142 H (70-110) mg/dL POC Glucose (mg/dL) 178 H (75-99) mg/dL 12/09/20 12/09/20 12/10/20 Range/Units 16:53 20:09 07:13 RBC (4.10-5.20) X 10*6/uL Hgb (12.0-15.0) g/dL Hct (37.2-46.3) % RDW (11.5-14.5) % Lymphocytes # (0.90-5.00) X 10*3/uL Potassium (3.5-5.5) mmol/L BUN (9.0-27.0) mg/dL Est GFR (CKD-EPI)NonAf (60.0-200.0) BUN/Creatinine Ratio (12.00-20.00) Ratio Glucose (70-110) mg/dL POC Glucose (mg/dL) 170 H 176 H 144 H (75-99) mg/dL Assessment and Plan Plan: Postoperative day #4, right hemicolectomy - Continue to increase activity - Patient having flatus, advanced to soft diet, await further bowel movement - Medical recommendations appreciated - Pulmonary consult placed based on patient's chronic pulmonary conditions - Pain control, as necessary - Progressing slowly
[2020-12-10 11:07] LABS: Glucose,Whole Blood 204 mg/dL (75-99)
--- NOTE | 2020-12-10 16:40 | P.PN ---
Subjective Progress Note Date: 12/10/20 Nisreen Reynaga, is a 65-year-old female who had a recent colonoscopy in which a large polypoid lesion was noted in the right colon. This area was tattooed and piecemeal removal of a polyp was attempted. 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 The patient is also noted to have a history of lung cancer. Case was discussed with oncology. Recommendation was made to the patient for a right hemicolectomy based on these findings and the patient's history of cancer. Patient had right hemicolectomy on 12/06/[address] Rey, she was admitted subsequently to medical floor, consultation was requested for management while hospitalized. Her past medical history is significant for history of hypertension, history of hyperlipidemia, history of left lung cancer, previous history of pneumonia, history of hypothyroidism, history of [id number] diabetes mellitus, history of asthma. Patient was seen post surgery on the medical floor, she is alert and oriented 3 in no apparent distress, she is complaining of abdominal pain otherwise she denies any complaints there is no fever or chills no headache or dizziness no chest pain no shortness of breath no cough no nausea or vomiting no diarrhea no blood in the stools no burning with urination no frequency or urgency no hematuria. On 12/07/2020 patient was seen and examined on the medical floor she is alert and oriented 3 in no distress she is complaining of pain in the abdomen otherwise she denies any complaints there is no fever or chills no headache or dizziness no chest pain no shortness of breath no cough no nausea or vomiting no diarrhea no blood in the stools no burning with urination no frequency or urgency and no hematuria. Browning catheter was removed today patient is started on insulin to sliding scale recheck labs in a.m. continue with current management otherwise On 12/08/2020 patient was seen and examined on the medical floor, she is alert and oriented 3 in no apparent distress there is no fever or chills no headache or dizziness no chest pain no shortness of breath no cough no nausea or vomiting no diarrhea no burning with urination no frequency or urgency and no hematuria, she has mild pain in the abdomen site of surgery otherwise she denies any complaints on 12/09/2020 patient is alert and oriented 3. Patient maintained clear liquid diet. Patient denies chest pain or shortness breath. Patient denies nausea vomiting or diarrhea. Denies urinary burning or frequency. Patient does have active bowel sounds. No bowel movement yet. on 12/10/2020 patient was seen and examined on the medical floor she is alert and oriented 3 in no distress she is able to tolerate diet well there is no fever or chills no headache or dizziness no chest pain no shortness of breath no cough no nausea or vomiting no abdominal pain no diarrhea no blood in the stools no burning with urination no frequency or urgency and no hematuria, blood pressure is elevated we will add losartan 25 mg by mouth daily and monitor closely, t this time patient is able to tolerate diet Will resume metformin as prior to admission Will follow in a.m. Objective - Vital Signs Vital signs: Vital Signs Temp 98.4 F 12/10/20 05:00 Pulse 91 12/10/20 05:00 Resp 16 12/10/20 05:00 BP 174/83 12/10/20 05:00 Pulse Ox 96 12/10/20 05:00 Intake & Output 12/09/20 12/10/20 12/10/20 18:59 06:59 18:59 Intake Total 400 1510 Balance 400 1510 Intake: Intake, IV Titration 400 600 Amount Lactated Ringers 1,000 ml 400 @ 0 mls/hr IV .[facility] Rx#:[id number] Lactated Ringers 1,000 ml 600 @ 125 mls/hr IV .[facility] Rx#:[id number] Oral 910 Other: Voiding Method Toilet # Voids 3 - Exam In general patient is alert and oriented 3 in no apparent distress HEENT head normocephalic and atraumatic Neck is supple no JVD no goiter no lymphadenopathy Chest exam reveals crackles in both lung bases no wheezing Cardiac exam reveals regular heart sounds S1 and S2 no gallops no murmurs Abdomen is soft nontender no organomegaly with normal bowel sounds Extremity exam reveals no edema no cyanosis or clubbing Neurological examination reveals, no gross focal neurological deficits - Labs CBC & Chem 7: 12/09/20 04:52 12/09/20 04:52 Labs: Abnormal Lab Results - Last 24 Hours (Table) 12/09/20 12/09/20 12/09/20 Range/Units 04:52 04:52 11:55 RBC 3.46 L (4.10-5.20) X 10*6/uL Hgb 10.2 L (12.0-15.0) g/dL Hct 31.7 L (37.2-46.3) % RDW 15.6 H (11.5-14.5) % Lymphocytes # 0.73 L (0.90-5.00) X 10*3/uL Potassium 3.3 L (3.5-5.5) mmol/L BUN 6.0 L (9.0-27.0) mg/dL Est GFR (CKD-EPI)NonAf 59.1 L (60.0-200.0) BUN/Creatinine Ratio 6.00 L (12.00-20.00) Ratio Glucose 142 H (70-110) mg/dL POC Glucose (mg/dL) 178 H (75-99) mg/dL 12/09/20 12/09/20 12/10/20 Range/Units 16:53 20:09 07:13 RBC (4.10-5.20) X 10*6/uL Hgb (12.0-15.0) g/dL Hct (37.2-46.3) % RDW (11.5-14.5) % Lymphocytes # (0.90-5.00) X 10*3/uL Potassium (3.5-5.5) mmol/L BUN (9.0-27.0) mg/dL Est GFR (CKD-EPI)NonAf (60.0-200.0) BUN/Creatinine Ratio (12.00-20.00) Ratio Glucose (70-110) mg/dL POC Glucose (mg/dL) 170 H 176 H 144 H (75-99) mg/dL Assessment and Plan Plan: 1. Large colon polyp, with biopsy positive for high-grade dysplasia, patient underwent right hemicolectomy. Postop day 3 2. Underlying history of hypertension 3. Underlying history of hyperlipidemia 4. Underlying history of asthma 5. Previous history of lung cancer For pain management patient is maintained on IV Dilaudid For DVT prophylaxis she is on SCD stockings Home medications reviewed Will check labs in a.m. and follow closely
[2020-12-10] MEDS: metFORMIN 500 MG TAB PO SCH (17:23)
[2020-12-10] MEDS: LOSARTAN 25 MG TAB PO SCH (17:23)
[2020-12-10 17:34] LABS: Glucose,Whole Blood 134 mg/dL (75-99)
[2020-12-10 20:22] LABS: Glucose,Whole Blood 162 mg/dL (75-99)
[2020-12-10] MEDS: ATORVASTATIN 40 MG TAB PO SCH (22:25)
[2020-12-11] MEDS: METOCLOPRAMIDE 5 MG/ML 2 ML VIAL IVP SCH ×3 (00:48→12:21)
[2020-12-11] MEDS: LACTATED RINGERS 1,000 ML IV SCH ×2 (00:49→12:25)
[2020-12-11] MEDS: LEVOTHYROXINE 75 MCG TAB PO SCH (05:26)
[2020-12-11 07:07] LABS: Glucose,Whole Blood 145 mg/dL (75-99)
[2020-12-11] MEDS: SYMBICORT 160-4.5 MCG INHALER INHALATION SCH (08:00)
[2020-12-11] MEDS: INSULIN ASPART (NovoLOG) 100 UNIT/ML VIAL SQ SCH ×2 (08:18→12:24)
[2020-12-11] MEDS: METOPROLOL TARTRATE 25 MG TAB PO SCH (08:20)
[2020-12-11] MEDS: ALVIMOPAN 12 MG CAPSULE PO SCH (08:20)
[2020-12-11] MEDS: metFORMIN 500 MG TAB PO SCH (08:20)
[2020-12-11] MEDS: LOSARTAN 25 MG TAB PO SCH (08:21)
[2020-12-11] MEDS: PANTOPRAZOLE 40 MG/10 ML VIAL IVP SCH (08:57)
[2020-12-11 09:37] LABS: Basophils % (A) 1.7 %; Eosinophils % (A) 3.4 %; HCT 32.9 % (37.2-46.3); HGB 10.6 g/dL (12.0-15.0); Lymphocytes # (A) 0.99 X 10*3/uL (0.90-5.00); Lymphocytes % (A) 16.8 %; MCH 29.6 pg (27.0-32.0); MCHC 32.2 g/dL (32.0-37.0); MCV 91.9 fL (80.0-97.0); Mean Platelet Volume 9.9 fL (9.5-12.2); Monocytes # (A) 0.39 X 10*3/uL (0.20-1.00); Monocytes % (A) 6.6 %; Neutrophils # (A) 4.18 X 10*3/uL (1.80-7.70); Platelet Count 306 X 10*3/uL (140-440); RBC 3.58 X 10*6/uL (4.10-5.20); RDW 15.1 % (11.5-14.5); WBC 5.89 X 10*3/uL (4.50-10.00)
[2020-12-11 11:00] LABS: African American GFR (CKD) 45.6 (60.0-200.0); Albumin 4.3 g/dL (3.80-4.90); Albumin/Globulin Ratio 2.53 (1.60-3.17); Anion Gap 13.7 mmol/L (4.00-12.00); Calcium 9.1 mg/dL (8.7-10.3); Carbon Dioxide 27.3 mmol/L (21.6-31.8); Globulin 1.7 g/dL (1.6-3.3); Non-African American GFR(CKD) 39.3 (60.0-200.0); Potassium 3.4 mmol/L (3.5-5.5); Total Bilirubin 0.7 mg/dL (0.2-1.2)
[2020-12-11 11:12] LABS: Glucose,Whole Blood 165 mg/dL (75-99)
--- NOTE | 2020-12-11 13:06 | P.DS ---
Providers Date of admission: 12/06/20 10:50 Attending physician: Simeon Rey DO Consults: 12/06/20 15:23 Consult Physician Routine Consulting Provider: Mayur Olivas Consult Reason/Comments: COPD hx, post op, pt known to you Do you want consulting provider notified?: Yes 12/06/20 15:24 Consult Physician Routine Consulting Provider: Kam Chavez Consult Reason/Comments: Med mgmt, post-op Do you want consulting provider notified?: Yes Primary care physician: Kam Kathy [facility] Course: 65-year-old female presented for an elective bowel resection secondary to finding of high-grade dysplasia on polyp during colonoscopy. Postoperatively, the patient did well and was sent to a medical surgical floor. She initially was on clear liquid diet and diet was advanced as the patient's bowel function returned. She tolerated diet without any nausea or vomiting. She is requesting discharge without any pain medication. She is surgically stable for discharge. Pain is well-controlled. She is to follow-up with me as an outpatient. Procedures: Right hemicolectomy Patient Condition at Discharge: Fair Plan - Discharge Summary Discharge Rx Participant: No New Discharge Prescriptions: Continue Atorvastatin [Lipitor] 40 mg PO HS #30 tablet Albuterol Inhaler (Mhu) [Ventolin Hfa Inhaler (Mhu)] 1 - 2 puff INHALATION RT-Q6H PRN PRN Reason: Shortness Of Breath Or Wheezing Budesonide/Formoterol Fumarate [Symbicort 160-4.5 Mcg Inhaler] 2 puff INHALATION BID metFORMIN HCL [Glucophage] 500 mg PO BID Levothyroxine Sodium 150 mcg PO [facility] Acetaminophen/Diphenhydramine [Tylenol PM 500-25mg] 2 tab PO HS Acetaminophen Tab [Tylenol] 650 mg PO DIRECTED PRN PRN Reason: Pain Loratadine [Claritin] 10 mg PO HS Metoprolol Tartrate [Lopressor] 25 mg PO DAILY Discharge Medication List Atorvastatin [Lipitor] 40 mg PO HS #30 tablet 01/11/19 [Rx] Albuterol Inhaler (Mhu) [Ventolin Hfa Inhaler (Mhu)] 1 - 2 puff INHALATION RT- Q6H PRN 02/22/19 [History] Acetaminophen Tab [Tylenol] 650 mg PO DIRECTED PRN 11/05/20 [History] Acetaminophen/Diphenhydramine [Tylenol PM 500-25mg] 2 tab PO HS 11/05/20 [History] Budesonide/Formoterol Fumarate [Symbicort 160-4.5 Mcg Inhaler] 2 puff INHALATION BID 11/05/20 [History] Levothyroxine Sodium 150 mcg PO [facility]OTUTHFRSA 11/05/20 [History] Loratadine [Claritin] 10 mg PO HS 11/05/20 [History] metFORMIN HCL [Glucophage] 500 mg PO BID 11/05/20 [History] Metoprolol Tartrate [Lopressor] 25 mg PO DAILY 11/29/20 [History] Follow up Appointment(s)/Referral(s): Simeon Rey DO [Doctor of Osteopathic Medicine] - 1 Week Patient Instructions/Handouts: Colorectal Polyps (DC), Laparoscopic Bowel Resection (DC) Activity/Diet/Wound Care/Special Instructions: No lifting greater than 5 pounds Okay to shower Okay to ambulate around the house Ambulate often to avoid any blood clots Do not scrub on incision while showering Discharge Disposition: HOME SELF-CARE
[2020-12-11 14:03] VITALS: BP 145/80; PULSE 84; RESP 16; TEMP 97.4
[2020-12-11] MEDS ORDERED: HEPARIN SODIUM,PORCINE 5,000 UNIT/ML 1 ML VIAL SQ SCH (16:00)
--- NOTE | 2020-12-12 20:54 | CDI ---
Documentation Clarification Form Date: 12/13/2020 From: Jake Luna Phone: If you have a question about this query, please contact Pam Cool, Sprinkler Tender at [phone] between 8am and 5pm. Admit Date: 12/06/2020 10:50:00 AM Patient Name: Nisreen Reynaga Visit Number: [id number] Discharge Date: 12/11/2020 03:07:00 PM ATTENTION: The Clinical Documentation Specialists (CDI) and [facility] Coding Staff appreciate your assistance in clarifying documentation. Please respond to the clarification below the line at the bottom and electronically sign. The CDI & [facility] Coding staff will review the response and follow-up if needed. Please note: Queries are made part of the Legal Health Record. If you have any questions, please contact the author of this message via ITS. Dr. 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 TUMOR SITE: Proximal ascending colon/cecum. TUMOR SIZE: Greatest dimension: 3.0 cm. Your Documentation states: Large colon polyp, with biopsy positive for high- grade dysplasia, patient underwent right hemicolectomy. 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 we are not allowed to code the diagnsosis from the path report without confirming them with the attending surgeon(when post op dx by surgeon does not include the pathological diagnosis). Do you acknowlege the above Pathological diagnosis for this patient? YES - Agree carcinoma involves Ascending colon and Cecum NO Other please specify unable to determine. ___ Yes MTDD
== END 2020-12-11 15:07 | disposition home or self-care (01) | DRG 330 ==
LOC: 2ORMAIN 10:50 → 5NMEDONC 15:37
PROVIDERS: ADMIT Surgery; ATTEND Surgery
PROC: 0DTF0ZZ Resection of Right Large Intestine, Open Approach (ICD-10-PCS; principal; 2020-12-06 12:30)
DX: C18.2 Malignant neoplasm of ascending colon (principal); C18.0 Malignant neoplasm of cecum; J44.9 Chronic obstructive pulmonary disease, unspecified; I10 Essential (primary) hypertension; E78.5 Hyperlipidemia, unspecified; E11.42 Type 2 diabetes mellitus with diabetic polyneuropathy; E03.9 Hypothyroidism, unspecified; Z90.710 Acquired absence of both cervix and uterus; Z90.2 Acquired absence of lung [part of]; Z87.891 Personal history of nicotine dependence; Z87.19 Personal history of other diseases of the digestive system; Z87.01 Personal history of pneumonia (recurrent); Z85.118 Personal history of other malignant neoplasm of bronchus and lung; Z79.899 Other long term (current) drug therapy; Z79.84 Long term (current) use of oral hypoglycemic drugs; Z79.51 Long term (current) use of inhaled steroids
CPT/HCPCS: 64488; 80048; 80053; 83036; 84132; 85025; 86850; 86900; 86901; 86920; 88309; 94640; 94760

== ENCOUNTER → 2020-12-25 | Outpatient (CLI) | payer MEDICARE, OTHER ==
[2020-12-26 02:27] LABS: African American GFR (CKD) 49.9 (60.0-200.0); Anion Gap 13.4 mmol/L (4.00-12.00); BUN/Creat Ratio 11.54 Ratio (12.00-20.00); Carbon Dioxide 21.6 mmol/L (21.6-31.8); Magnesium 1.9 mg/dL (1.5-2.4)
== END | disposition home or self-care (01) ==
LOC: LABWHC1 14:52
PROVIDERS: ATTEND Internal Medicine
DX: N18.30 Chronic kidney disease, stage 3 unspecified (principal)
CPT/HCPCS: 36415; 80048; 83735

== ENCOUNTER → 2021-01-11 | Outpatient (CLI) | payer MEDICARE, OTHER ==
--- NOTE | 2021-01-15 08:32 | MM ---
Reason for exam: screening (asymptomatic). Last mammogram was performed 1 year and 10 months ago. History: Patient is postmenopausal, has history of colon cancer at age 64, and history of other cancer. Family history of breast cancer in maternal grandmother. Physical Findings: A clinical breast exam by your physician is recommended on an annual basis and results should be correlated with mammographic findings. MG 3D Screening Mammo W/Cad Bilateral CC and MLO view(s) were taken. Prior study comparison: March 02, 2019, bilateral MG screening mammo w CAD. The breast tissue is almost entirely fat. No significant changes when compared with prior studies. ASSESSMENT: Negative, BI-RAD 1 RECOMMENDATION: Routine screening mammogram of both breasts in 1 year.
== END | disposition home or self-care (01) ==
LOC: RADMAMWWP 14:55
PROVIDERS: ATTEND Internal Medicine
DX: Z12.31 Encounter for screening mammogram for malignant neoplasm of breast (principal)
CPT/HCPCS: 77063; 77067

== ENCOUNTER → 2021-02-21 | Outpatient (CLI) | payer MEDICARE, OTHER ==
[2021-02-22 12:15] LABS: T4, Free (Free Thyroxine) 1.7 ng/dL (0.80-1.80)
== END | disposition home or self-care (01) ==
LOC: LABWHC1 14:52
PROVIDERS: ATTEND Internal Medicine
DX: E03.9 Hypothyroidism, unspecified (principal)
CPT/HCPCS: 36415; 84439; 84443

== ENCOUNTER → 2021-03-06 | Outpatient (CLI) | payer MEDICARE, OTHER ==
--- NOTE | 2021-03-06 13:19 | CT ---
EXAMINATION TYPE: CT ChestAbdPelvis w con DATE OF EXAM: 03/06/2021 COMPARISON: CT CAP November 07, 2020 and older studies HISTORY: Lung cancer CT DLP: 1997 mGycm. Automated Exposure Control for Dose Reduction was Utilized. CONTRAST: CT scan of the thorax, abdomen and pelvis is performed with oral and with IV Contrast, patient inject ed with 80 mL of Isovue 300. FINDINGS: LUNGS: Post treatment changes left lung with hilar scar like opacity having anterior superior extensi on axial images 18 through 22 not significantly changed from most recent studies. Left-sided volume l oss redemonstrated. Stable bnil-nx-eelruquu left lung linear scarring. No new nodules or masses. No p leural effusion or pneumothorax seen bilaterally. Elevated left hemidiaphragm redemonstrated. MEDIASTINUM: There are no greater than 1 cm hilar or mediastinal lymph nodes. No cardiomegaly or pe ricardial effusion is seen. Coronary artery calcification and/or stents again seen. LIVER/GB: Visualized liver remains hypodense consistent with diffuse fatty infiltration. Stable large 1.8 cm rim calcified dependent gallstone axial image 60 with smaller calcified punctate gallstone ax ial image 67 inferior to this. PANCREAS: No significant abnormality is seen. SPLEEN: No significant abnormality is seen. ADRENALS: No significant abnormality is seen. KIDNEYS: No significant abnormality is seen. BOWEL: Surgical changes from proximal partial colectomy and small bowel anastomosis now present. Fiss ures small or large bowel dilatation. Oral contrast does not extend to site of anastomosis. Diverticu la are seen in the redundant sigmoid colon. Additional diverticula in the left colon redemonstrated. No CT evidence for acute diverticulitis. GENITAL ORGANS: Uterus surgically absent or markedly atrophic. Scattered bilateral pelvic phleboliths . Remnant left ovary axial image 94 redemonstrated. LYMPH NODES: No new greater than 1cm abdominal or pelvic lymph nodes are appreciated. OSSEOUS STRUCTURES: Advanced degenerative change right hip redemonstrated with marked joint space taya rowing, there is extensive sclerosis and subchondral cystic change, is chronic deformity to the right femoral head. Moderate to severe multilevel disc space narrowing and vacuum disc phenomenon L3-L4 th rough L5-S1 levels. Posterior spur disc complexes efface the anterior thecal sac at these levels. OTHER: New overlying vertical scar in the midline of the mid to lower abdomen is seen. IMPRESSION: No suspicious new mass or adenopathy to suggest active neoplastic recurrence.
== END | disposition home or self-care (01) ==
LOC: RADCTMAIN 10:35
PROVIDERS: ATTEND Internal Medicine Hematology & Oncology
DX: C34.12 Malignant neoplasm of upper lobe, left bronchus or lung (principal)
CPT/HCPCS: 71260; 74177; Q9967

== ENCOUNTER → 2021-05-03 | Outpatient (CLI) | payer MEDICARE, OTHER ==
[2021-05-03 14:33] LABS: Appearance,Urine Cloudy (Clear); Bilirubin,Urine Negative (Negative); Blood,Urine Negative (Negative); Color,Urine Light Yellow; Glucose,Urine (UA) 4+ (Negative); Ketones,Urine Negative (Negative); Leukocyte Esterase,Urine Negative (Negative); Mucus,Urine Rare /hpf; Nitrite,Urine Negative (Negative); Protein,Urine Negative (Negative); RBC,Urine 1 /hpf (0-5); Squamous Epithelial Cell,Urine <1 /hpf (0-4); Urobilinogen,Urine <2.0 mg/dL (<2.0); WBC,Urine 2 /hpf (0-5)
[2021-05-03 20:20] LABS: HCT 40.2 % (37.2-46.3); HGB 12.8 g/dL (12.0-15.0); MCH 29.2 pg (27.0-32.0); MCHC 31.8 g/dL (32.0-37.0); MCV 91.8 fL (80.0-97.0); Mean Platelet Volume 10.3 fL (9.5-12.2); Platelet Count 307 X 10*3/uL (140-440); RBC 4.38 X 10*6/uL (4.10-5.20); RDW 15.7 % (11.5-14.5); WBC 6.13 X 10*3/uL (4.50-10.00)
[2021-05-03 21:14] LABS: % Iron Saturation 22.11 (12.00-45.00); African American GFR (CKD) 45.3 (60.0-200.0); Albumin 4.7 g/dL (3.80-4.90); Albumin/Globulin Ratio 1.74 (1.60-3.17); Calcium 9.2 mg/dL (8.7-10.3); Globulin 2.7 g/dL (1.6-3.3); Magnesium 1.9 mg/dL (1.5-2.4); Non-African American GFR(CKD) 39.1 (60.0-200.0); Phosphorus 4.6 mg/dL (2.4-5.1); Potassium 4.5 mmol/L (3.5-5.5); Total Bilirubin 0.6 mg/dL (0.2-1.2); Total Protein 7.4 g/dL (6.2-8.2); Uric Acid 5.3 mg/dL (2.9-7.7)
[2021-05-03 21:43] LABS: Urine Creatinine 58.6 mg/dL
== END | disposition home or self-care (01) ==
LOC: LABWHC1 13:27
PROVIDERS: ATTEND Internal Medicine
DX: N39.0 Urinary tract infection, site not specified (principal); N18.32 Chronic kidney disease, stage 3b; N25.81 Secondary hyperparathyroidism of renal origin; E55.9 Vitamin D deficiency, unspecified; D64.9 Anemia, unspecified; M10.9 Gout, unspecified
CPT/HCPCS: 36415; 80053; 81001; 82043; 82306; 82570; 82728; 83540; 83550; 83735; 83970; 84100; 84550; 85027

== ENCOUNTER → 2021-06-28 | Outpatient (CLI) | payer MEDICARE, OTHER ==
[~2021-06-28] MED LIST changes: -DEXAMETHASONE SOD PHOSPHATE 4 MG/ML 1 ML VIAL IV ONE; -HEPARIN SODIUM,PORCINE 5,000 UNIT/ML 1 ML VIAL SQ PRN; -LIDOCAINE 1% (10MG/ML) FOR IV START INTRADERMA PRN; -MIDAZOLAM 2 MG/2 ML VIAL IV PRN; -ONDANSETRON 4 MG/2 ML VIAL IVP ONE; +SODIUM CHLORIDE 0.9% 500 ML 500 ML in EMPTY BAG 1 BAG IV PRN; -metroNIDAZOLE-NS PMX 500 MG in SALINE 1 100ML.BAG IVPB PRN
[2021-06-28 08:49] VITALS: BP 112/73; PULSE 70; RESP 16; TEMP 98.2
[2021-06-28] MEDS: SODIUM CHLORIDE 0.9% 500 ML 500 ML IV NR ×2 (08:53→13:01)
--- NOTE | 2021-06-30 19:00 | CT ---
EXAMINATION TYPE: CT ChestAbdPelvis wo/w con DATE OF EXAM: 06/28/2021 COMPARISON: 03/06/2021, 11/07/2020, 07/27/2020 HISTORY: 66-year-old female C3 4.12, Lung and Colon Cancer TECHNIQUE: Contiguous axial scanning of the chest, abdomen, and pelvis performed without and with IV Contrast, patient injected with 100 ml mL of Isovue 300. Delayed images through the kidneys were obta ined. Coronal/sagittal reconstructions performed. CT DLP: 3443 mGycm Automated exposure control for dose reduction was used. FINDINGS: CHEST: Heart normal size without pericardial effusion. LAD coronary artery calcifications are present. Aorta normal caliber with conventional arch was a branching anatomy. No thoracic lymphadenopathy by CT size criteria. Stable soft tissue thickening anterior left hilum and left infrahilar region with some associated efren gical material. No increasing abnormal soft tissue thickening or new pulmonary nodules are identified . No consolidation or pleural effusion. ABDOMEN: Tiny hiatal hernia. Small amount of focal fat along the anterior falciform ligament. No focal liver lesion otherwise seen . Portal venous system is patent. No biliary ductal dilatation. 2.2 cm gallstone. No abnormal gallbladder distention. Additional tiny gallstone also noted. Adrenal glands, kidneys, and pancreas within normal limits. Spleen remains enlarged at 15.7 cm, unchanged. A couple anterior splenules are unchanged. No dilated small bowel, free fluid, or free air. No mesenteric or retroperitoneal lymphadenopathy. Some surgical material along the cecum. Oral contrast progressed to the mid transverse colon. Left-si ded colonic diverticulosis, greatest in the sigmoid colon. No pericolonic inflammatory change. PELVIS: Bladder partially distended. Fluid within the pelvis. Both ovaries are visualized. Uterus surgically absent. No abnormal fluid collection in the pelvis or pelvic lymphadenopathy. BONES: End-stage degenerative change of the right hip redemonstrated. 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 Additional moderate degenerative disc dis ease lower thoracic spine. No osseous destructive process seen. IMPRESSION: 1. STABLE POSTTREATMENT VOLUME LOSS AND CONSOLIDATION LEFT HILAR/INFRAHILAR REGION. NO EVIDENCE FOR R ECURRENT OR METASTATIC DISEASE. 2. POSTSURGICAL CHANGE ALONG THE RIGHT SIDE OF THE COLON. LEFT-SIDED COLONIC DIVERTICULOSIS. 3. STABLE SPLENOMEGALY AT 15.7 CM. 4. LAD CORONARY ARTERY CALCIFICATIONS. TINY HIATAL HERNIA. CHOLELITHIASIS.
== END ==
LOC: PROCWHC3 08:36
PROVIDERS: ATTEND Internal Medicine Hematology & Oncology
DX: E11.22 Type 2 diabetes mellitus with diabetic chronic kidney disease (principal); N18.32 Chronic kidney disease, stage 3b; C34.12 Malignant neoplasm of upper lobe, left bronchus or lung; J44.9 Chronic obstructive pulmonary disease, unspecified; Z88.5 Allergy status to narcotic agent; Z88.1 Allergy status to other antibiotic agents; Z88.8 Allergy status to other drugs, medicaments and biological substances
CPT/HCPCS: 82565; 84520; 71270; 74178; 96360; 96361; 36415; Q9967

== ENCOUNTER → 2021-07-02 | Outpatient (CLI) | payer MEDICARE, OTHER ==
[2021-07-02 22:41] LABS: African American GFR (CKD) 45.3 (60.0-200.0); Anion Gap 14.3 mmol/L (4.00-12.00); Calcium 9.2 mg/dL (8.7-10.3); Carbon Dioxide 17.7 mmol/L (21.6-31.8); Non-African American GFR(CKD) 39.1 (60.0-200.0); Potassium 4.4 mmol/L (3.5-5.5)
== END | disposition home or self-care (01) ==
LOC: LABWHC1 10:55
PROVIDERS: ATTEND Internal Medicine
DX: N18.32 Chronic kidney disease, stage 3b (principal)
CPT/HCPCS: 36415; 80048

== ENCOUNTER → 2021-07-12 | Outpatient (CLI) | payer MEDICARE, OTHER ==
[2021-07-12 21:16] LABS: Anion Gap 14.1 mmol/L (4.00-12.00); BUN/Creat Ratio 12.86 Ratio (12.00-20.00); Carbon Dioxide 20.9 mmol/L (21.6-31.8)
[2021-07-12 21:17] LABS: African American GFR (CKD) 45.3 (60.0-200.0); Calcium 9.5 mg/dL (8.7-10.3); Non-African American GFR(CKD) 39.1 (60.0-200.0)
== END | disposition home or self-care (01) ==
LOC: LABWHC1 09:05
PROVIDERS: ATTEND Internal Medicine
DX: N18.32 Chronic kidney disease, stage 3b (principal)
CPT/HCPCS: 36415; 80048

== ENCOUNTER → 2021-08-24 | Outpatient (CLI) | payer MEDICARE, OTHER ==
[2021-08-24 18:51] LABS: T4, Free (Free Thyroxine) 1.81 ng/dL (0.800-1.800)
== END | disposition home or self-care (01) ==
LOC: LABWHC1 09:44
PROVIDERS: ATTEND Internal Medicine
DX: E03.9 Hypothyroidism, unspecified (principal)
CPT/HCPCS: 36415; 84439; 84443

== ENCOUNTER → 2021-12-27 | Outpatient (CLI) | payer MEDICARE, OTHER ==
[2021-12-27 11:26] LABS: ALT 19 U/L (4-34); AST 22 U/L (14-36); African American GFR (CKD) 47 (>60 ml/min/1.73 sqM); Albumin 4.7 g/dL (3.5-5.0); Albumin/Globulin Ratio 1.4; Alkaline Phosphatase 105 U/L (38-126); Anion Gap 12 mmol/L; Blood Urea Nitrogen 25 mg/dL (7-17); Calcium 9.7 mg/dL (8.4-10.2); Carbon Dioxide 25 mmol/L (22-30); Chloride 105 mmol/L (98-107); Globulin 3.3 g/dL; Glucose 190 mg/dL (74-99); Non-African American GFR(CKD) 40 (>60 ml/min/1.73 sqM); Potassium 4.3 mmol/L (3.5-5.1); Sodium 142 mmol/L (137-145); Total Bilirubin 0.7 mg/dL (0.2-1.3)
--- NOTE | 2021-12-29 11:20 | CT ---
EXAMINATION TYPE: CT Chest Abd Pelvis w con DATE OF EXAM: 12/27/2021 COMPARISON: CT dated 06/28/2021 HISTORY: Lung and Colon Cancer CT DLP: 1794.0 mGycm Automated exposure control for dose reduction was used. CONTRAST: CT scan of the chest, abdomen and pelvis is performed with Oral Contrast and with IV Contrast, patien t injected with 80 mL of Isovue 300. FINDINGS: CHEST: No appreciable interval changes regarding the size and density of the previously seen left hilar and perihilar soft tissue thickening mainly anteriorly, measuring up to 3 x 3.8 cm in maximum transverse dimensions. This is likely related to postsurgical/post therapeutic changes with adjacent surgical ma terial. It is not possible to exclude subtle underlying residual disease however the interval stabili ty is reassuring. The adjacent fibrotic changes in the left upper lobe are also stable. Unremarkable remainder of the lungs. No new suspicious or progressive lung lesion. Patent central airways. No pleural effusion. Persistent pericardial fluid seen superiorly, slightly more prominent today without nodularity. No gross cardio megaly. Persistent coronary arterial atherosclerotic calcifications with scattered aortic calcificati ons. No pathologically enlarged lymph nodes in the chest with no interval changes. Degenerative jeronimo es of the mid to lower thoracic spine. No aggressive bone lesion. ABDOMEN AND PELVIS: Stable postsurgical changes in the right colon. No evidence of local tumor recurrence. Fecal loading of the colon with scattered colonic diverticulosis most evident involving the sigmoid colon and desce nding colon. A tiny colonic lesion can't be excluded by this CT scan. Unremarkable nondistended stoma ch, duodenum and remainder of the small bowel No definite hepatic focal lesion. Cholelithiasis without convincing evidence of acute cholecystitis. Persistent large spleen measuring 16 cm compared to 15.7 cm previously, please correlate clinically. No definite splenic focal lesion. Unremarkable pancreas, adrenals and kidneys. Scattered arterial ath erosclerotic calcifications. Unremarkable urinary bladder. Previous hysterectomy. Unchanged ovaries with no progressive lesion. No suspicious lymphadenopathy or sizable ascites. Persistent severe degenerative changes of the right h ip joint. Degenerative changes of the lumbar spine. No aggressive bone lesion. IMPRESSION: 1. No evidence of local tumor recurrence or metastatic disease in the chest, abdomen or pelvis. 2. Slightly more prominent pericardial fluid, attention on follow-up. 3. Progressive enlargement of the spleen as described above, recommend clinical correlation and furth er workup. Other incidental findings as described above.
== END | disposition home or self-care (01) ==
LOC: RADCTMAIN 10:15
PROVIDERS: ATTEND Internal Medicine Hematology & Oncology
DX: C34.12 Malignant neoplasm of upper lobe, left bronchus or lung (principal); K80.20 Calculus of gallbladder without cholecystitis without obstruction; R16.1 Splenomegaly, not elsewhere classified; K57.30 Diverticulosis of large intestine without perforation or abscess without bleeding; Z85.038 Personal history of other malignant neoplasm of large intestine
CPT/HCPCS: 80053; 71260; 74177; Q9967 ×2

== ENCOUNTER → 2022-02-01 | Outpatient (CLI) | payer MEDICARE, OTHER ==
[2022-02-01 11:56] LABS: Basophils # (A) 0.14 X 10*3/uL (0.00-0.10); Basophils % (A) 2.3 %; Eosinophils # (A) 0.14 X 10*3/uL (0.04-0.35); Eosinophils % (A) 2.3 %; HCT 42.8 % (37.2-46.3); Immature Grans, Automated 0.5 %; Lymphocytes # (A) 1.12 X 10*3/uL (0.90-5.00); Lymphocytes % (A) 18.3 %; MCH 27.7 pg (27.0-32.0); MCHC 30.4 g/dL (32.0-37.0); MCV 91.1 fL (80.0-97.0); Mean Platelet Volume 10.4 fL (9.5-12.2); Monocytes # (A) 0.36 X 10*3/uL (0.20-1.00); Monocytes % (A) 5.9 %; NRBC Per 100 WBC 0 /100 WBCS (0.0-0.0); Neutrophils # (A) 4.33 X 10*3/uL (1.80-7.70); Neutrophils % (A) 70.7 %; Platelet Count 309 X 10*3/uL (140-440); RDW 15.5 % (11.5-14.5); WBC 6.12 X 10*3/uL (4.50-10.00)
[2022-02-01 12:32] LABS: Ferritin 29.2 ng/mL (10.0-291.0)
[2022-02-01 13:40] LABS: Appearance,Urine Clear (Clear); Bilirubin,Urine Negative (Negative); Blood,Urine Negative (Negative); Color,Urine Yellow (Yellow); Ketones,Urine Negative (Negative); Nitrite,Urine Negative (Negative); Specific Gravity,Urine 1.024 (1.001-1.030); Urobilinogen,Urine 0.2 (0.2,1.0)
[2022-02-01 13:58] LABS: Microalbumin Creatinine Ratio <30 mg/g Creat (0-30); Urine Creatinine 73.3 mg/dL (28.0-217.0)
[2022-02-01 18:08] LABS: Magnesium 2.2 mg/dL (1.5-2.4)
[2022-02-01 18:09] LABS: % Iron Saturation 14.59 (12.00-45.00); African American GFR (CKD) 44.9 (60.0-200.0); Albumin 4.5 g/dL (3.8-4.9); Albumin/Globulin Ratio 1.61 (1.60-3.17); Anion Gap 24.3 mmol/L (10.00-18.00); BUN/Creat Ratio 13.07 Ratio (12.00-20.00); Blood Urea Nitrogen 18.3 mg/dL (9.0-27.0); Calcium 9.3 mg/dL (8.7-10.3); Carbon Dioxide 13.7 mmol/L (20.0-27.5); Globulin 2.8 g/dL (1.6-3.3); Non-African American GFR(CKD) 38.8 (60.0-200.0); Phosphorus 3.7 mg/dL (2.4-5.1); Potassium 3.8 mmol/L (3.5-5.5); Total Bilirubin 0.4 mg/dL (0.30-1.20); Total Protein 7.3 g/dL (6.2-8.2); Uric Acid 5.6 mg/dL (2.9-7.7)
== END | disposition home or self-care (01) ==
LOC: LABWHC1 08:15
PROVIDERS: ATTEND Nurse Practitioner Family
DX: N39.0 Urinary tract infection, site not specified (principal); D64.9 Anemia, unspecified; R80.9 Proteinuria, unspecified; E21.3 Hyperparathyroidism, unspecified; E55.9 Vitamin D deficiency, unspecified; M10.9 Gout, unspecified; N18.32 Chronic kidney disease, stage 3b
CPT/HCPCS: 36415; 80053; 81003; 82043; 82306; 82570; 82728; 83540; 83550; 83735; 83970; 84100; 84550; 85025

== ENCOUNTER → 2022-02-27 | Outpatient (CLI) | payer MEDICARE, OTHER ==
--- NOTE | 2022-02-27 09:36 | US ---
EXAMINATION TYPE: US kidneys/renal and bladder DATE OF EXAM: 02/27/2022 COMPARISON: NONE CLINICAL HISTORY: N18.32 CKD STAGE 3. CKD stage 3 Limitations due to body habitus. EXAM MEASUREMENTS: Right Kidney: 7.9 x 3.6 x 3.8 cm Left Kidney: 9.4 x 3.5 x 4.1 cm Right Kidney: No hydronephrosis or masses seen Left Kidney: No hydronephrosis or masses seen Bladder: wnl Bilateral Jets seen: Yes Suboptimal study due to large body habitus. Poorly visualized kidneys without gross hydronephrosis. C ortical thinning in the left kidney. No obvious large masses. Bladder is adequately distended without intraluminal mass. Bilateral distal ureter jets are seen. IMPRESSION: Suboptimal study without gross hydronephrosis identified.
== END | disposition home or self-care (01) ==
LOC: RADUSWWP 08:51
PROVIDERS: ATTEND Internal Medicine
DX: N18.32 Chronic kidney disease, stage 3b (principal)
CPT/HCPCS: 76770

== ENCOUNTER 2022-03-14 06:46 | Day surgery (SDC) | payer MEDICARE, OTHER ==
[2022-03-12 13:06] VITALS: BMI 33.3
[~2022-03-14 06:46] MED LIST changes: +LACTATED RINGERS 1,000 ML IV SCH; +LIDOCAINE 1% (10MG/ML) FOR IV START INTRADERMA PRN; -SODIUM CHLORIDE 0.9% 500 ML 500 ML in EMPTY BAG 1 BAG IV PRN
[2022-03-14] MEDS ORDERED: ONDANSETRON 4 MG/2 ML VIAL IVP PRN (07:00)
[2022-03-14 07:22] VITALS: RESP 16; TEMP 97.3
[2022-03-14] MEDS ORDERED: PROPOFOL 10 MG/ML 20 ML VIAL IV ONE (07:33)
[2022-03-14 07:40] LABS: Glucose,Whole Blood 181 mg/dL (75-99)
--- NOTE | 2022-03-14 07:59 | P.HPIHPCON ---
History of Present Illness H&P Date: 03/14/22 67-year-old female presents today for screening colonoscopy. She does have a history of right-sided colon cancer with surgical resection. She denies any blood in her stool. Recent CT of the abdomen and pelvis did not reveal any concerning changes for metastasis. Patient is following with oncology. Consent for Procedure: I have explained the operation/procedure to the patient, including the risks, benefits, side effects, alternative therapies (including not receiving the proposed treatment or service), the likelihood of the patient achieving his/her goals, and potential recuperation problems for the procedure/sedation/analgesia, as well as any blood products, if indicated. I also explained to the patient the risks, benefits and side effects of the alternatives, as well as the risks related to not receiving the proposed procedure, care, treatment, or services. - Review of Systems All systems: negative Past Medical History Past Medical History: Asthma, Cancer, Chest Pain / Angina, COPD, Diabetes Mellitus, GERD/Reflux, Hyperlipidemia, Hypertension, Osteoarthritis (OA), Pneumonia, Renal Disease Additional Past Medical History / Comment(s): chronic headaches, chronic sinus disease, history of insomnia, peripheral neuropathy, sciatica with chronic pain in the left lower extremity addition to numbness. LUNG CANCER 2019-surg, immune therapy, chemo & radiation, enlarged spleen showed up on last CT History of Any Multi-Drug Resistant Organisms: None Reported Past Surgical History: Appendectomy, Back Surgery, Bowel Resection, Hysterectomy Additional Past Surgical History / Comment(s): CHAPINCITO BRONCH 02/24/19. COLONOSCOPY. PARTIAL LEFT LUNG REMOVED. DECEMBER 2020- BOWEL RESECTION Past Anesthesia/Blood Transfusion Reactions: Postoperative Nausea & Vomiting (PONV) Additional Past Anesthesia/Blood Transfusion Reaction / Comment(s): only PONV was related to morphine Smoking Status: Former smoker - Past Family History Mother Family Medical History: No Reported History Medications and Allergies Home Medications Medication Instructions Recorded Confirmed Type Albuterol Inhaler (Mhu) [Ventolin 1 - 2 puff INHALATION RT-Q6H PRN 02/22/19 03/14/22 History Hfa Inhaler (Mhu)] Acetaminophen Tab [Tylenol] 650 mg PO DIRECTED PRN 11/05/20 03/14/22 History Acetaminophen/Diphenhydramine 2 tab PO HS 11/05/20 03/14/22 History [Tylenol PM 500-25mg] Budesonide/Formoterol Fumarate 2 puff INHALATION BID 11/05/20 03/14/22 History [Symbicort 160-4.5 Mcg Inhaler] Levothyroxine Sodium 112 mcg PO DAILY 11/05/20 03/14/22 History Loratadine [Claritin] 10 mg PO HS 11/05/20 03/14/22 History Metoprolol Tartrate [Lopressor] 25 mg PO DAILY 11/29/20 03/14/22 History Losartan Potassium 50 mg PO HS 03/06/21 03/14/22 History Cholecalciferol (Vitamin D3) 125 mcg PO DAILY 06/28/21 03/14/22 History [Vitamin D3 (125 MCG = 5,000 IU)] Empagliflozin [Jardiance] 10 mg PO DAILY 06/28/21 03/14/22 History Ascorbic Acid [Vitamin C] 500 mg PO DAILY 03/12/22 03/14/22 History Calcium Carbonate/Vitamin D3 1 each PO DAILY 03/12/22 03/14/22 History [Calcium 250-D Tablet] Docusate [Colace] 100 mg PO HS 03/12/22 03/14/22 History Ferrous Sulfate [Feosol] 65 mg PO TUSA 03/12/22 03/14/22 History Rosuvastatin [Crestor] 10 mg PO HS 03/12/22 03/14/22 History Sodium Bicarbonate 650 mg PO BID 03/12/22 03/14/22 History Allergies Allergy/AdvReac Type Severity Reaction Status Date / Time codeine AdvReac Nausea & Verified 03/14/22 07:15 Vomiting fluoxetine [From Prozac] AdvReac LEG PAIN Verified 03/14/22 07:15 morphine AdvReac Vomiting Verified 03/14/22 07:15 Tetracyclines AdvReac Nausea & Verified 03/14/22 07:15 Vomiting Surgical - Exam Osteopathic Statement: *. No significant issues noted on an osteopathic structural exam other than those noted in the History and Physical/Consult. Vital Signs Temp Pulse Resp BP Pulse Ox 97.3 F L 91 16 146/83 96 03/14/22 07:21 03/14/22 07:21 03/14/22 07:21 03/14/22 07:21 03/14/22 07:21 - General no distress - Eyes normal ocular movement - Neck trachea midline - Respiratory normal respiratory effort - Abdomen Abdomen: soft, non tender Results - Labs Abnormal Lab Results - Last 24 Hours (Table) 03/14/22 Range/Units 07:30 POC Glucose (mg/dL) 181 H (75-99) mg/dL Assessment and Plan Plan: 67-year-old female with history of colon cancer. Plan is for screening colonoscopy. Risks, Benefits and alternatives were provided to the patient. She did provide consent.
--- NOTE | 2022-03-14 08:02 | P.PCN ---
Date of Procedure: 03/14/22 Preoperative Diagnosis: History of colon cancer Postoperative Diagnosis: History of colon cancer Transverse colon polyps Sigmoid colon polyp Diverticulosis Internal hemorrhoids Procedure(s) Performed: Colonoscopy with hot snare polypectomy Anesthesia: MAC Surgeon: Simeon Rey Pathology: other (Polyps of the transverse colon, sigmoid colon) Condition: stable Disposition: same day Indications for Procedure: 67-year-old female with history of right-sided colon cancer. Plan is for screening colonoscopy. Risks, benefits and alternatives were provided to the patient. Operative Findings: Multiple colon polyps, 2 in the transverse colon and one in the sigmoid colon Diverticulosis of the sigmoid colon Internal hemorrhoids Description of Procedure: The patient was brought into the endoscopy suite and placed in left lateral decubitus position. Adequate sedation was achieved using conscious sedation. A digital rectal exam was performed and internal hemorrhoids were palpated. An endoscope was then placed in the rectum and advanced to the cecum as identified by landmarks including the appendiceal orifice and the ileocecal valve. The prep was fair. The colonoscope was then slowly withdrawn, examining for any mucosal abnormalities. The anastomosis, transverse, descending and sigmoid colon were visualized adequately. There were no large neoplastic lesions noted throughout the colon. Multiple polyps were encountered. A polyp was noted in the proximal transverse colon just distal to the anastomosis. This was removed with hot snare polypectomy. Hemostasis was maintained. An additional polyp was noted in the distal transverse colon. Hot snare polypectomy was used and hemostasis was maintained. Final polyp was noted in the sigmoid colon. This was also removed with hot snare polypectomy. Hemostasis was maintained. Moderate amount of diverticulosis was noted scattered throughout the sigmoid colon. Retroflexion was performed in the rectum and internal hemorrhoids were visible. Excess air was removed, the colonoscope withdrawn and the procedure terminated. The patient was then transferred to the recovery unit in stable condition. Repeat colonoscopy should be performed in 1 year.
[2022-03-14 08:23] VITALS: BP 138/72; PULSE 74
== END 2022-03-14 08:50 | disposition home or self-care (01) ==
LOC: ORWHC2ENDO 06:46
PROVIDERS: ATTEND Surgery
DX: D12.3 Benign neoplasm of transverse colon (principal); D12.5 Benign neoplasm of sigmoid colon; K64.8 Other hemorrhoids; Z85.038 Personal history of other malignant neoplasm of large intestine; Z86.010 Personal history of colon polyps
CPT/HCPCS: 45385; 88305; J2704

== ENCOUNTER → 2022-05-01 | Outpatient (CLI) | payer MEDICARE, OTHER ==
--- NOTE | 2022-05-02 14:38 | MM ---
Reason for Exam: Screening (asymptomatic). Last mammogram was performed 1 year(s) and 3 month(s) ago. Patient History: Menarche at age 13. First Full-Term at age 18. Hysterectomy at age 48. Postmenopausal. Other cancer. Colorectal cancer, age 64. Previous chest radiation therapy. Previous chemotherapy. Maternal grandmother had breast cancer. Risk Values: Chata 5 year model risk: 1.2%. NCI Lifetime model risk: 4.2%. Prior Study Comparison: 03/02/2019 Bilateral Screening Mammogram, [facility]. 01/11/2021 Bilateral Screening Mammogram, [facility]. Tissue Density: The breast tissue is almost entirely fat. Findings: Analyzed By CAD. No suspicious groups of microcalcifications, spiculated or lobular masses, architectural distortion or other secondary signs of malignancy are mammographically apparent. Overall Assessment: Negative, BI-RAD 1 Management: Screening Mammogram of both breasts in 1 year. A negative mammogram report should not preclude additional follow up of suspicious palpable abnormalities. Patient should continue monthly self breast exam. A clinical breast exam by your physician is recommended on an annual basis and results should be correlated with mammographic findings. Electronically signed and approved by: Glen Howard D.O. Radiologis
== END | disposition home or self-care (01) ==
LOC: RADMAMWWP 13:10
PROVIDERS: ATTEND Internal Medicine
DX: Z12.31 Encounter for screening mammogram for malignant neoplasm of breast (principal); Z85.3 Personal history of malignant neoplasm of breast; Z80.3 Family history of malignant neoplasm of breast; Z78.0 Asymptomatic menopausal state
CPT/HCPCS: 77063; 77067

== ENCOUNTER → 2022-07-04 | Outpatient (CLI) | payer MEDICARE, OTHER ==
[~2022-07-04] MED LIST changes: -LACTATED RINGERS 1,000 ML IV SCH; -LIDOCAINE 1% (10MG/ML) FOR IV START INTRADERMA PRN; +SODIUM CHLORIDE 0.9% 1,000 ML IV ONE
--- NOTE | 2022-07-04 13:29 | CT ---
EXAMINATION TYPE: CT ChestAbdPelvis w con DATE OF EXAM: 07/04/2022 COMPARISON: 12/27/2021 HISTORY: Colon cancer CT DLP: 1801.4 mGycm Automated exposure control for dose reduction was used. CONTRAST: CT scan of the chest, abdomen and pelvis is performed with Oral Contrast and with IV Contrast, patien t injected with 80 mL of Isovue 300. FINDINGS: CT chest: There has been interval development of a 2 cm area of groundglass density in the right upper lobe unc ertain clinical significance. Pericardial thickening is stable. The left hilar changes described prev iously which are either postsurgical or postradiation in nature are stable. There is no pneumothorax or pleural effusion. The great vessels the chest are normal and there is no mediastinal, hilar or axillary adenopathy. The osseous structures of the thorax are intact. CT abdomen and pelvis: There is no focal masses within the liver or pancreas. There is mild splenomegaly is stable. There is no retroperitoneal adenopathy or hemorrhage in the caliber of the abdominal aorta is normal. There is no solid renal mass or hydronephrosis. There is persistent cholelithiasis. No biliary ductal dilatation. There is diverticulosis of colon but no bowel obstruction or inflammation. There is no pelvic mass or adenopathy. There is marked degeneration of the right hip but no focal lytic or blastic osseous abnormality. IMPRESSION: 1. New 2 cm area of groundglass density in the right upper lobe of uncertain clinical significance. F ollow-up chest CT in 3-4 months is recommended. 2. Stable mild pericardial effusion/thickening and stable left hilar changes as described above. 3. Cholelithiasis. 4. Persistent mild splenomegaly. 5. Right hip degeneration but no focal lytic osseous abnormalities within the chest, abdomen or pelvi s.
[2022-07-04 14:31] VITALS: BP 143/77; PULSE 69; RESP 16; TEMP 97.5
== END ==
LOC: RADCTMAIN 09:50
PROVIDERS: ATTEND Internal Medicine Hematology & Oncology
DX: C18.2 Malignant neoplasm of ascending colon (principal); Z03.89 Encounter for observation for other suspected diseases and conditions ruled out; C34.12 Malignant neoplasm of upper lobe, left bronchus or lung; E11.9 Type 2 diabetes mellitus without complications
CPT/HCPCS: 82565; 84520; 71260; 74177; 36415; Q9967

== ENCOUNTER → 2022-10-10 | Outpatient (CLI) | payer MEDICARE, OTHER ==
--- NOTE | 2022-10-10 11:08 | CT ---
EXAMINATION TYPE: CT chest wo con CT DLP: 654 mGycm, Automated exposure control for dose reduction was used. DATE OF EXAM: 10/10/2022 10:59 AM COMPARISON: CT chest abdomen pelvis 07/04/2022. CLINICAL INDICATION:Female, 67 years old with history of C34.12 LUNG CANCER; [facility], Lung Cancer TECHNIQUE: Multiple axial images were obtained through the chest without IV contrast. Lack of IV or o ral contrast limits evaluation of solid and hollow organ viscera. FINDINGS: LUNGS/ PLEURA: Resolution of previously seen ground glass density within the right upper lobe. Stable left hilar and perihilar soft tissue thickening likely related to postsurgical/post therapeutic villatoro ges. No new or enlarging pulmonary nodules. No pneumothorax or pleural effusion. AIRWAY: Patent and unremarkable.. HEART: Size within normal limits. Trace pericardial fluid. Moderate coronary artery calcifications. MEDIASTINUM: No gross evidence of adenopathy. VASCULATURE: No aortic aneurysm. MUSCULOSKELETAL: No acute osseous abnormalities. No aggressive osseous lesion. Mild multilevel degene rative disc disease. SOFT TISSUES/LYMPH NODES: Unremarkable. LOWER NECK: No significant findings. UPPER ABDOMEN: Partial visualization of enlarged spleen. IMPRESSION: 1. Resolution of previously demonstrated groundglass density within the right upper lobe. No new or e nlarging pulmonary nodules. 2. Stable mild pericardial effusion/thickening and stable left hilar treatment changes.
== END | disposition home or self-care (01) ==
LOC: RADCTMAIN 10:15
PROVIDERS: ATTEND Internal Medicine Hematology & Oncology
DX: C34.12 Malignant neoplasm of upper lobe, left bronchus or lung (principal); J98.4 Other disorders of lung; I31.39 Other pericardial effusion (noninflammatory)
CPT/HCPCS: 71250

== ENCOUNTER → 2023-02-25 | Outpatient (CLI) | payer MEDICARE, OTHER ==
--- NOTE | 2023-02-25 14:03 | US ---
EXAMINATION TYPE: US kidneys/renal and bladder DATE OF EXAM: 02/25/2023 COMPARISON: Whole-body CT of January 09, 2023 CLINICAL INDICATION: Female, 68 years old with history of N18.32 stage 3 kidney disease; EXAM MEASUREMENTS: Right Kidney: 8.4 x 3.8 x 4.6 cm Left Kidney: 9.6 x 4.1 x 5.2 cm Exam limitations due to patient size and overlying bowel gas. Right Kidney: smaller in size, limited visualization, wnl as seen Left Kidney: wnl Bladder: wnl as seen Exam suboptimal secondary to patient's large body habitus. Kidneys are smaller in size. When scannin g right kidney adjacent liver is markedly heterogeneously hyperechoic consistent with marked diffuse fatty infiltration. There is some cortical thinning in the left kidney. No hydronephrosis identified. No suspicious masses on images saved. IMPRESSION: Suboptimal study without hydronephrosis seen bilaterally
== END | disposition home or self-care (01) ==
LOC: RADUSWWP 13:23
PROVIDERS: ATTEND Internal Medicine Nephrology
DX: N18.32 Chronic kidney disease, stage 3b (principal)
CPT/HCPCS: 76770

== ENCOUNTER → 2023-04-23 | Outpatient (CLI) | payer MEDICARE, OTHER ==
[2023-04-23 17:31] LABS: ALT 18 U/L (8-44); AST 21 U/L (13-35)
[2023-04-23 17:39] LABS: Chol/HDL Ratio 3.63 Ratio; LDL Cholesterol,Calculated 36.7 mg/dL (0.0-131.0)
== END | disposition home or self-care (01) ==
LOC: LABWHC1 09:12
PROVIDERS: ATTEND Internal Medicine Cardiovascular Disease
DX: E78.2 Mixed hyperlipidemia (principal)
CPT/HCPCS: 36415; 80061; 84450; 84460

== ENCOUNTER → 2023-05-04 | Outpatient (CLI) | payer MEDICARE, OTHER ==
--- NOTE | 2023-05-06 07:59 | MM ---
Reason for Exam: Screening (asymptomatic). Last mammogram was performed 1 year(s) and 1 month(s) ago. Patient History: Menarche at age 13. First Full-Term at age 18. Hysterectomy at age 48. Postmenopausal. Other cancer. Colorectal cancer, age 64. Previous chest radiation therapy. Previous chemotherapy. Maternal grandmother had breast cancer. Risk Values: Chata 5 year model risk: 1.2%. NCI Lifetime model risk: 4.0%. Prior Study Comparison: 03/02/2019 Bilateral Screening Mammogram, [facility]. 01/11/2021 Bilateral Screening Mammogram, [facility]. 05/01/2022 Bilateral MG 3D screening mammo w/cad, [facility]. Tissue Density: The breast tissue is heterogeneously dense. This may lower the sensitivity of mammography. Findings: Analyzed By CAD. There is no suspicious group of microcalcifications or new suspicious mass in either breast. Overall Assessment: Negative, BI-RAD 1 Management: Screening Mammogram of both breasts in 1 year. . Patient should continue monthly self-breast exams. A clinical breast exam by your physician is recommended on an annual basis. This exam should not preclude additional follow-up of suspicious palpable abnormalities. Note on Chata scores and lifetime risk: 1. A Chata score greater than 3% is considered moderate risk. If this is the case, consider specialist referral to assess eligibility for a risk reducing agent. 2. If overall lifetime risk for the development of breast cancer is 20% or higher, the patient may qualify for future screening with alternating mammogram and breast MRI. Electronically signed and approved by: Tino Rogers M.D. Radiologis
== END | disposition home or self-care (01) ==
LOC: RADMAMWWP 13:35
PROVIDERS: ATTEND Internal Medicine
DX: Z12.31 Encounter for screening mammogram for malignant neoplasm of breast (principal); Z78.0 Asymptomatic menopausal state; Z80.3 Family history of malignant neoplasm of breast
CPT/HCPCS: 77063; 77067

== ENCOUNTER 2023-07-04 11:00 | Emergency (ER) | payer MEDICARE, OTHER ==
[2023-07-04 11:13] VITALS: TEMP 98.1
[2023-07-04 11:37] VITALS: BP 150/90
[2023-07-04] MEDS ORDERED: NYSTATIN 100,000 UNIT/ML SUSP 500,000 UNIT/5 ML CUP PO STA (12:01)
[2023-07-04] MEDS ORDERED: KETOROLAC 15 MG/ML 1 ML VIAL IM STA (12:01)
[2023-07-04] MEDS ORDERED: BENZOCAINE/MENTHOL LOZENG 1 EACH LOZENGE MUCOUS MEM STA (12:05)
--- NOTE | 2023-07-04 12:54 | ED ---
General Adult HPI - General Chief complaint: Upper Respiratory Infection Stated complaint: LASHELL Time Seen by Provider: 07/04/23 11:45 Source: patient Mode of arrival: ambulatory Limitations: no limitations - Related Data Home Medications Medication Instructions Recorded Confirmed Albuterol Inhaler [Ventolin Hfa 1 - 2 puff INHALATION RT-Q6H PRN 02/22/19 Inhaler] Acetaminophen Tab [Tylenol] 650 mg PO DIRECTED PRN 11/05/20 01/09/23 Acetaminophen/Diphenhydramine 2 tab PO HS 11/05/20 01/09/23 [Tylenol PM 500-25mg] Budesonide/Formoterol Fumarate 2 puff INHALATION BID 11/05/20 01/09/23 [Symbicort 160-4.5 Mcg Inhaler] Levothyroxine Sodium 112 mcg PO DAILY 11/05/20 01/09/23 Loratadine [Claritin] 10 mg PO HS 11/05/20 01/09/23 Metoprolol Tartrate [Lopressor] 25 mg PO DAILY 11/29/20 01/09/23 Losartan Potassium 50 mg PO HS 03/06/21 01/09/23 Cholecalciferol (Vitamin D3) 125 mcg PO DAILY 06/28/21 01/09/23 [Vitamin D3 (125 MCG = 5,000 IU)] Empagliflozin [Jardiance] 10 mg PO DAILY 06/28/21 01/09/23 Ascorbic Acid [Vitamin C] 500 mg PO DAILY 03/12/22 01/09/23 Docusate [Colace] 100 mg PO HS 03/12/22 01/09/23 Rosuvastatin [Crestor] 10 mg PO HS 03/12/22 01/09/23 Sodium Bicarbonate 650 mg PO BID 03/12/22 01/09/23 Previous Rx's Medication Instructions Recorded Acetaminophen Tab [Tylenol Tab] 500 mg PO Q4H PRN #30 tablet 07/04/23 Benzocaine/Menthol Lozeng [Cepacol 1 each MUCOUS MEM Q4HR PRN #30 07/04/23 lozenge] lozenge Nystatin 100,000 Unit/ml Susp 5 ml PO QID #140 ml 07/04/23 [Mycostatin Oral Susp] Allergies Allergy/AdvReac Type Severity Reaction Status Date / Time codeine AdvReac Nausea & Verified 07/04/23 11:14 Vomiting fluoxetine [From Prozac] AdvReac LEG PAIN Verified 07/04/23 11:14 morphine AdvReac Vomiting Verified 07/04/23 11:14 Tetracyclines AdvReac Nausea & Verified 07/04/23 11:14 Vomiting Review of Systems ROS Statement: Those systems with pertinent positive or pertinent negative responses have been documented in the HPI. ROS Other: All systems not noted in ROS Statement are negative. Past Medical History Past Medical History: Asthma, Cancer, Chest Pain / Angina, COPD, Diabetes Mellitus, GERD/Reflux, Hyperlipidemia, Hypertension, Osteoarthritis (OA), Pneumonia Additional Past Medical History / Comment(s): Left upper lobe mass, chronic headaches, chronic sinus disease, history of insomnia, history of depression, COPD, diabetes mellitus, peripheral neuropathy, hypertension, hyperlipidemia, sciatica with chronic pain in the left lower extremity addition to numbness. BRONCHITIS, LUNG CANCER History of Any Multi-Drug Resistant Organisms: None Reported Past Surgical History: Appendectomy, Back Surgery, Bowel Resection, Hysterectomy Additional Past Surgical History / Comment(s): CHAPINCITO BRONCH 02/24/19. COLONOSCOPY. PARTIAL LEFT LUNG REMOVED. DECEMBER 2020- BOWEL RESECTION Past Anesthesia/Blood Transfusion Reactions: Postoperative Nausea & Vomiting (PONV) Past Psychological History: Depression Smoking Status: Former smoker Past Alcohol Use History: None Reported Past Drug Use History: None Reported - Past Family History Mother Family Medical History: No Reported History General Exam Limitations: no limitations General appearance: alert Eye exam: Present: normal appearance, PERRL, EOMI. Absent: scleral icterus, conjunctival injection, periorbital swelling ENT exam: Present: TM's normal bilaterally. Absent: normal oropharynx (thrush over the tongue, were from mouth, posterior pharynx. No tonsillar swelling, erythema, exudate) Neck exam: Present: normal inspection, full ROM. Absent: tenderness, meningismus, lymphadenopathy Respiratory exam: Present: normal lung sounds bilaterally. Absent: respiratory distress, wheezes, rales, rhonchi, stridor Cardiovascular Exam: Present: regular rate, normal rhythm, normal heart sounds. Absent: systolic murmur, diastolic murmur, rubs, gallop, clicks Neurological exam: Present: alert Psychiatric exam: Present: normal affect, normal mood Skin exam: Present: warm, dry, intact, normal color. Absent: rash Course Vital Signs 07/04/23 07/04/23 07/04/23 11:09 11:35 12:13 Temperature 98.1 F Pulse Rate 88 86 68 Respiratory 20 20 16 Rate Blood Pressure 138/75 150/90 150/90 O2 Sat by Pulse 96 98 96 Oximetry Medical Decision Making - Medical Decision Making Was pt. sent in by a medical professional or institution (, MARISA, CAREER TECHNICAL EDUCATION INSTRUCTOR, urgent care, hospital, or group home...) When possible be specific @ -No Did you speak to anyone other than the patient for history (EMS, parent, family, police, friend...)? What history was obtained from this source @ -No Did you review nursing and triage notes (agree or disagree)? Why? @ -[I reviewed and disagree. Patient denies any changes or worsening in her chronic shortness of breath with COPD. Were old charts reviewed (outside hosp., previous admission, EMS record, old EKG, old radiological studies, urgent care reports/EKG's, group home records)? Report findings @ -No old charts were reviewed Differential Diagnosis (chest pain, altered mental status, abdominal pain women, abdominal pain men, vaginal bleeding, weakness, fever, dyspnea, syncope, headache, dizziness, GI bleed, back pain, seizure, CVA, palpatations, mental health)? @ -Thrush, strep throat, mono EKG interpreted by me (3pts min.). @ -As above X-rays interpreted by me (1pt min.). @ -None done CT interpreted by me (1pt min.). @ -None done U/S interpreted by me (1pt. min.). @ -None done What testing was considered but not performed or refused? (CT, X-rays, U/S, labs)? Why? @ -None What meds were considered but not given or refused? Why? @ -None Did you discuss the management of the patient with other professionals (professionals i.e. MARISA Wheeler, CAREER TECHNICAL EDUCATION INSTRUCTOR, lab, RT, psych nurse, social director, operating system designer, teacher, corporate officer, piano case and bench assembler)? Give summary @ -No Was smoking cessation discussed for >3mins.? @ -No Was critical care preformed (if so, how long)? @ -No Were there social determinants of health that impacted care today? How? (Homelessness, low income, unemployed, alcoholism, drug addiction, transportation, low edu. Level, literacy, decrease access to med. care, group home, rehab)? @ -No Was there de-escalation of care discussed even if they declined (Discuss DNR or withdrawal of care, Hospice)? DNR status @ -No What co-morbidities impacted this encounter? (DM, HTN, Smoking, COPD, CAD, Cancer, CVA, ARF, Chemo, Hep., AIDS, mental health diagnosis, sleep apnea, morbid obesity)? @ -None Was patient admitted / discharged? Hospital course, mention meds given and route, prescriptions, significant lab abnormalities, going to OR and other pertinent info. @ -Patient presenting for throat pain. She has thrush. Denies history. She uses Symbicort daily. Viral and strep testing negative. Patient will be discharged with nystatin and pain management. Will avoid Symbicort if possible until improvement of symptoms.. She will follow-up with primary care provider in one to 2 days. New problem with uncertain prognosis? @ -[No] Drug Therapy eqiring intensive monitoring for toxicity (Heparin, Nitro, Insulin, Cardizem)? @ -[No] Were any procdues done? @ -[No] Diagnosis/symptom? thrush Acute, or Chronic, or Acute on Chronic? @ -Acute Uncomplicated (without systemic symptoms) or Complicated (systemic symptoms)? @ -uncomplicated Side effects of treatment? @ -No Exacerbation, Progression, or Severe Exacerbation? @ -No Poses a threat to life or bodily function? How? (Chest pain, [place], CA, pneumonia, PE, COPD, DKA, ARF, appy, cholecystitis, CVA, Diverticulitis, Homicidal, Suicidal, threat to staff... and all critical care pts) @ -No Dr. Cortez is my attending - Lab Data Lab Results 07/04/23 07/04/23 Range/Units 11:54 11:54 Influenza Type A (PCR) Not Detected (Not Detectd) Influenza Type B (PCR) Not Detected (Not Detectd) RSV (PCR) Not Detected (Not Detectd) SARS-CoV-2 (PCR) Not Detected (Not Detectd) Group A Strep (PCR) NOT DETECTED (Not Detectd) Disposition Clinical Impression: Thrush Disposition: HOME SELF-CARE Condition: Good Instructions (If sedation given, give patient instructions): Oral Candidiasis (ED) Additional Instructions: Swish and swallow this medication every 6 hours until 48 hours after symptoms disappear.Avoid Symbicort for the next couple days if possible .Follow up with primary care provider in one to 2 days. Return to the emergency department experience new, concerning, or worsening symptoms Prescriptions: Benzocaine/Menthol Lozeng [Cepacol lozenge] 1 each MUCOUS MEM Q4HR PRN #30 lozenge PRN Reason: Pain Nystatin 100,000 Unit/ml Susp [Mycostatin Oral Susp] 5 ml PO QID #140 ml Acetaminophen Tab [Tylenol Tab] 500 mg PO Q4H PRN #30 tablet PRN Reason: Pain Is patient prescribed a controlled substance at d/c from ED?: No Referrals: Kam Chavez MD [Primary Care Provider] - 1-2 days
[2023-07-04 13:58] VITALS: PULSE 68; RESP 16
== END 2023-07-04 14:14 | disposition home or self-care (01) ==
LOC: EC 11:00
DX: B37.9 Candidiasis, unspecified (principal); J44.9 Chronic obstructive pulmonary disease, unspecified; I10 Essential (primary) hypertension; E11.42 Type 2 diabetes mellitus with diabetic polyneuropathy; K21.9 Gastro-esophageal reflux disease without esophagitis; M19.90 Unspecified osteoarthritis, unspecified site; E78.5 Hyperlipidemia, unspecified; F32.A Depression, unspecified; Z87.891 Personal history of nicotine dependence; Z88.5 Allergy status to narcotic agent; Z88.8 Allergy status to other drugs, medicaments and biological substances; Z79.84 Long term (current) use of oral hypoglycemic drugs; Z79.51 Long term (current) use of inhaled steroids; Z79.899 Other long term (current) drug therapy; Z20.822 Contact with and (suspected) exposure to COVID-19
CPT/HCPCS: 87651; 87636; 99284; 96372; J1885

== ENCOUNTER → 2023-07-17 | Outpatient (CLI) | payer MEDICARE, OTHER ==
--- NOTE | 2023-07-17 13:07 | CT ---
EXAMINATION TYPE: CT ChestAbdPelvis w con DATE OF EXAM: 07/17/2023 COMPARISON: 01/09/2023 HISTORY: 68-year-old female C18.2, MALIGNANT NEOPLASM OF ASCENDING COLON TECHNIQUE: Contiguous axial scanning of the chest, abdomen, and pelvis performed with IV Contrast, pa tient injected with 80ml mL of Isovue 300. Delayed images through the kidneys were obtained. Coronal/ sagittal reconstructions performed. CT DLP: 1526.5 mGycm Automated exposure control for dose reduction was used. FINDINGS: CHEST: Heart borderline enlarged. LAD and circumflex coronary artery calcifications are present. There is a trace pericardial effusion measuring 5 mm thick, slightly increased from prior. Aorta shows conventional arch vessel branching anatomy and normal caliber. No thoracic lymphadenopathy. Unchanged left hilar soft tissue measuring 3.3 x 2.4 cm, relatively unchanged. Mild emphysematous change. Staple lines from prior resection at the lingula. No consolidation or pleural effusion. ABDOMEN: Spleen is enlarged at 15.5 cm. Smaller focal fat along the anterior falciform ligament. No other foca l liver lesion is seen. No biliary ductal dilatation. Portal venous system is patent. 2.2 cm gallstone. No abnormal gallbladder distention. Adrenal glands, kidneys, and pancreas within normal limits. No dilated small bowel, free fluid, or free air. No mesenteric or retroperitoneal lymphadenopathy. Normal appendix. Mild stool wording. Left-sided colonic diverticulosis, greatest in the sigmoid colon . No pericolic inflammatory change. Pelvis: Bladder under distended. Mild pelvic floor relaxation. Uterus surgically absent. Pelvic phleboliths. Both ovaries are visualized. No abnormal fluid collection the pelvis or pelvic lymphadenopathy. Bones: Scattered moderate spondylotic change throughout the mid thoracic and mid to lower lumbar spin e. Baastrup's disease. No osseous destructive process. IMPRESSION: 1. STABLE SOFT TISSUE ENCASEMENT OF THE LEFT HILUM LIKELY SITE OF TREATED DISEASE. SURGICAL CHANGES A LONG THE LINGULA ARE SIMILAR WELL. 2. NO EVIDENCE FOR DISEASE PROGRESSION. 3. SPLENOMEGALY AT 15.5 CM. A 2.2 CM GALLSTONE. LEFT-SIDED COLONIC DIVERTICULOSIS.
== END | disposition home or self-care (01) ==
LOC: RADCTMAIN 11:07
PROVIDERS: ATTEND Internal Medicine Hematology & Oncology
DX: Z03.89 Encounter for observation for other suspected diseases and conditions ruled out (principal); C18.2 Malignant neoplasm of ascending colon; K80.20 Calculus of gallbladder without cholecystitis without obstruction; R16.1 Splenomegaly, not elsewhere classified; K57.30 Diverticulosis of large intestine without perforation or abscess without bleeding; R91.8 Other nonspecific abnormal finding of lung field
CPT/HCPCS: 71260; 74177; Q9967

== ENCOUNTER → 2024-01-14 | Outpatient (CLI) | payer MEDICARE, OTHER ==
[~2024-01-14] MED LIST changes: -SODIUM CHLORIDE 0.9% 1,000 ML IV ONE; +SODIUM CHLORIDE 0.9% 500 ML 500 ML in EMPTY BAG 1 BAG IV PRN
[2024-01-14] MEDS: SODIUM CHLORIDE 0.9% 1,000 ML IV NR (09:50)
[2024-01-14 10:00] VITALS: BP 119/71; PULSE 76; RESP 15; TEMP 97.6
[2024-01-14 11:16] LABS: African American GFR (CKD) 57 (>60 ml/min/1.73 sqM); Blood Urea Nitrogen 23 mg/dL (7-17); Non-African American GFR(CKD) 49 (>60 ml/min/1.73 sqM)
== END ==
LOC: PROCWHC3 09:27
PROVIDERS: ATTEND Internal Medicine Hematology & Oncology
DX: C18.2 Malignant neoplasm of ascending colon (principal); C34.12 Malignant neoplasm of upper lobe, left bronchus or lung; E11.9 Type 2 diabetes mellitus without complications; J44.9 Chronic obstructive pulmonary disease, unspecified; Z71.3 Dietary counseling and surveillance
CPT/HCPCS: 36415; 82565; 84520; 96360; 96361

== ENCOUNTER → 2024-01-14 | Outpatient (CLI) | payer MEDICARE ==
--- NOTE | 2024-01-14 13:46 | CT ---
EXAMINATION: CT CHEST, ABDOMEN AND PELVIS WITH IV CONTRAST DATE OF EXAMINATION: 01/14/2024. COMPARISON: 07/17/2023. INDICATION: Colon cancer follow-up PROCEDURE: Axial CT of the chest, abdomen and pelvis was performed following the intravenous adminis tration of 80 ml Isovue 370. Coronal and sagittal reformats were performed. CT dose lowering techniq ues were used, to include: automated exposure control, adjustment for patient size, and/or use of ite rative reconstruction. FINDINGS: CHEST: Mediastinum and Lis: There is unchanged appearance to the soft tissue thickening within the left per ihilar region which is likely related to treatment change. There is no axillary, mediastinal or hilar adenopathy otherwise seen. Pleural and Pericardial spaces: There are no pleural or pericardial effusions. Cardiovascular: The thoracic aorta is normal in size without evidence of aneurysm or dissection. Pulmonary Artery: There are no central pulmonary arterial filling defects. Lung Parenchyma and Airways: There is no focal consolidation or significant pulmonary nodule identifi ed on this examination. ABDOMEN: Liver and Biliary system: Normal. Adrenal glands: Normal. Kidneys and ureters: Normal. Spleen: The spleen is enlarged measuring 18 cm in craniocaudal dimension. Pancreas: Normal. Gallbladder: Gallstone is seen within the gallbladder. Lymph nodes, Peritoneum and mesentery: There is no mesenteric or retroperitoneal lymphadenopathy. Gastrointestinal tract: There are no dilated loops of bowel or free intraperitoneal air. . The appe ndix is normal. There is moderate to significant descending colonic and sigmoid colonic diverticulosi s without evidence of diverticulitis. Aorta/IVC: There is mild vascular calcification throughout the abdominal aorta without evidence of aneurysmal dilation or dissection.. IVC normal. Abdominal wall: Normal. PELVIS: Fluid: There is no free fluid in the pelvis. Lymph Nodes: There is no pelvic or inguinal lymphadenopathy.. Urinary bladder: Normal. BONES: There is severe osteoarthritic changes of the right hip. Scattered degenerative disc and face t changes are otherwise seen throughout the spine. There are no acute osseous abnormalities.. ADDITIONAL SIGNIFICANT FINDINGS: None. IMPRESSION: 1. No definitive evidence of metastatic disease within the chest, abdomen or pelvis. 2. Diverticulosis without evidence of diverticula. 3. Cholelithiasis. 4. Severe osteoporosis of the right hip
== END | disposition home or self-care (01) ==
LOC: RADCTMAIN 11:26
PROVIDERS: ATTEND Internal Medicine Hematology & Oncology
DX: C18.2 Malignant neoplasm of ascending colon (principal); C34.12 Malignant neoplasm of upper lobe, left bronchus or lung; K80.20 Calculus of gallbladder without cholecystitis without obstruction; M81.0 Age-related osteoporosis without current pathological fracture; J44.9 Chronic obstructive pulmonary disease, unspecified; E11.9 Type 2 diabetes mellitus without complications; Z71.3 Dietary counseling and surveillance
CPT/HCPCS: 71260; 74177; Q9967

== ENCOUNTER → 2024-04-04 | Outpatient (CLI) | payer MEDICARE ==
[2024-04-04 19:29] LABS: ALT 14 U/L (8-44); AST 18 U/L (13-35); Chol/HDL Ratio 3.19 Ratio; LDL Cholesterol,Calculated 33.1 mg/dL (0.0-131.0)
== END | disposition home or self-care (01) ==
LOC: LABWHC1 14:28
PROVIDERS: ATTEND Internal Medicine Cardiovascular Disease
DX: E78.2 Mixed hyperlipidemia (principal)
CPT/HCPCS: 36415; 80061; 84450; 84460

== ENCOUNTER → 2024-05-09 | Outpatient (CLI) | payer MEDICARE, OTHER ==
--- NOTE | 2024-05-11 13:11 | MM ---
Reason for Exam: Screening (asymptomatic). Last screening mammogram was performed 12 month(s) ago. Patient History: Menarche at age 13. First Full-Term at age 18. Hysterectomy at age 48. Postmenopausal. Previous chest radiation therapy. Previous chemotherapy. Maternal grandmother had breast cancer. Risk Values: Chata 5 year model risk: 1.2%. NCI Lifetime model risk: 3.9%. Prior Study Comparison: 01/11/2021 Bilateral Screening Mammogram, [facility]. 05/01/2022 Bilateral MG 3D screening mammo w/cad, [facility]. 05/04/2023 Bilateral MG 3D screening mammo w/cad, [facility]. Tissue Density: The breasts are almost entirely fatty. Findings: Analyzed By CAD. Right breast: There is no suspicious group of microcalcifications or new suspicious mass. Left breast: There is no suspicious group of microcalcifications or new suspicious mass. Overall Assessment: Negative, BI-RAD 1 Management: Screening Mammogram of both breasts in [address] [facility] will attempt to contact patient to return for supplemental views and ultrasound if indicated. Patient should continue monthly self-breast exams. A clinical breast exam by your physician is recommended on an annual basis. This exam should not preclude additional follow-up of suspicious palpable abnormalities. Note on Chata scores and lifetime risk: 1. A Chata score greater than 3% is considered moderate risk. If this is the case, consider specialist referral to assess eligibility for a risk reducing agent. 2. If overall lifetime risk for the development of breast cancer is 20% or higher, the patient may qualify for future screening with alternating mammogram and breast MRI. Electronically signed and approved by: Mayur Fox DO
== END | disposition home or self-care (01) ==
LOC: RADMAMWWP 10:54
PROVIDERS: ATTEND Internal Medicine
DX: Z12.31 Encounter for screening mammogram for malignant neoplasm of breast (principal); M85.88 Other specified disorders of bone density and structure, other site; Z78.0 Asymptomatic menopausal state; Z80.3 Family history of malignant neoplasm of breast
CPT/HCPCS: 77063; 77067; 77080

== ENCOUNTER → 2024-08-31 | Outpatient (CLI) | payer MEDICARE ==
[2024-08-31 10:18] LABS: African American GFR (CKD) 51 (>60 ml/min/1.73 sqM); Blood Urea Nitrogen 28 mg/dL (7-17); Non-African American GFR(CKD) 44 (>60 ml/min/1.73 sqM)
--- NOTE | 2024-08-31 12:19 | CT ---
EXAMINATION TYPE: CT ChestAbdPelvis w con CT DLP: 1695.2 mGycm, Automated exposure control for dose reduction was used. DATE OF EXAM: 08/31/2024 11:45 AM COMPARISON: CT chest abdomen pelvis 01/14/2024, 07/17/2023, 01/09/2023, 07/04/2022 CLINICAL INDICATION:Female, 69 years old with history of C18.2 MALIGNANT NEOPLASM OF ASCENDING COLON; [facility], COLON CA FOLLOW UP. History of lung cancer. Technique: Multiple axial images of the chest, abdomen, and pelvis were obtained following the intrav enous administration of 100 mL Isovue-300. Oral contrast was administered. Two-dimensional coronal an d sagittal reconstructions were obtained. Findings: CHEST: LUNGS/ PLEURA: No pleural effusion, pneumothorax, or focal consolidation. Stable appearance to soft t issue thickening within the left perihilar region likely related to treatment change. Staple line fro m prior resection at the lingula. No new suspicious pulmonary nodules or masses. AIRWAY: Patent and unremarkable.. HEART: Size within normal limits. Trace pericardial effusion. Coronary artery calcifications. MEDIASTINUM: No evidence of adenopathy. VASCULATURE: No aortic aneurysm. MUSCULOSKELETAL: No acute osseous abnormalities. No aggressive osseous lesion. Multilevel degenerativ e disc disease. SOFT TISSUES/LYMPH NODES: Unremarkable. LOWER NECK: No significant findings. ABDOMEN: ABDOMEN LIVER: Diffusely hypoattenuating parenchyma. GALLBLADDER AND BILE DUCTS: Cholelithiasis. No biliary duct dilatation. PANCREAS: Unremarkable. SPLEEN: Mildly enlarged again measuring up to 16.9 cm in CC dimension. ADRENAL GLANDS: Unremarkable. KIDNEYS AND URETERS: No evidence of hydronephrosis or renal calculus. The kidneys enhance symmetrical ly. Contrast is demonstrated within both collecting systems on the delayed phase. PELVIS BLADDER: Incompletely distended but grossly unremarkable. REPRODUCTIVE: The uterus is surgically absent. ABDOMEN & PELVIS STOMACH AND BOWEL: Stomach and duodenum are unremarkable. Enteric contrast reaches the transverse col on. Distal colonic diverticulosis without evidence for acute diverticulitis. The appendix appears efren gically absent. No evidence of bowel obstruction. PERITONEUM: No evidence of pneumoperitoneum or free fluid. VASCULATURE: Mild atherosclerotic calcifications are present throughout the abdominal aorta and its b ranches. No abdominal aortic aneurysm. MUSCULOSKELETAL: No acute osseous abnormalities. No aggressive osseous lesion. Multilevel degenerativ e disc disease. Advanced osteoarthritic changes of the right hip. LYMPH NODES: No gross evidence for lymphadenopathy. SOFT TISSUE/ABDOMINAL WALL: Unremarkable IMPRESSION: 1. Stable soft tissue thickening at the left hilum at likely site of treated disease. Post surgical changes along the lingula are similar. No evidence for recurrence or metastatic disease. 2. Mild splenomegaly. 3. Cholelithiasis. 4. Colonic diverticulosis. [facility], , 08/31/2024 12:16 PM
== END | disposition home or self-care (01) ==
LOC: RADCTMAIN 09:27
PROVIDERS: ATTEND Internal Medicine Hematology & Oncology
CPT/HCPCS: 36415; 71260; 74177; 82565; 84520

== ENCOUNTER → 2024-08-31 | Outpatient (CLI) | payer MEDICARE ==
[2024-08-31] MEDS: SODIUM CHLORIDE 0.9% 1,000 ML IV NR (11:45)
[2024-08-31 12:00] VITALS: BP 131/73; PULSE 69; RESP 16; TEMP 97.5
== END ==
LOC: PROCWHC3 11:25
PROVIDERS: ATTEND Internal Medicine Hematology & Oncology
DX: C34.12 Malignant neoplasm of upper lobe, left bronchus or lung (principal)
CPT/HCPCS: 96360; 96361

== ENCOUNTER → 2024-09-05 | Outpatient (CLI) | payer MEDICARE ==
[2024-09-05 15:13] LABS: BUN/Creat Ratio 12.71 Ratio (12.00-20.00); Blood Urea Nitrogen 17.8 mg/dL (9.0-27.0); Calcium 9.5 mg/dL (8.7-10.3); Carbon Dioxide 21.4 mmol/L (21.6-31.8); Chloride 106 mmol/L (96-109); Glucose 154 mg/dL (70-110); Potassium 4.9 mmol/L (3.5-5.5); Sodium 142 mmol/L (135-145)
== END | disposition home or self-care (01) ==
LOC: LABWHC1 11:12
PROVIDERS: ATTEND Internal Medicine
DX: N18.32 Chronic kidney disease, stage 3b (principal)
CPT/HCPCS: 36415; 80048

== ENCOUNTER → 2025-02-27 | Outpatient (CLI) | payer MEDICARE ==
--- NOTE | 2025-02-27 21:26 | US ---
EXAMINATION TYPE: US kidneys/renal and bladder DATE OF EXAM: 02/27/2025 COMPARISON: CT 2023, US 2022 CLINICAL INDICATION: Female, 70 years old with history of N18.32 CHRONIC KIDNEY DISEASE, STAGE 3B; TECHNIQUE: Grayscale imaging of the bilateral kidneys and urinary bladder: FINDINGS: EXAM MEASUREMENTS: Right Kidney: 9.7 x 4.2 x 4.5 cm Left Kidney: 9.0 x 3.8 x 4.6 cm Airplane Cleaner notes: Difficult and limited study due to patient body habitus Right Kidney: visualized portions wnl Left Kidney: visualized portions wnl Bladder: No gross abnormality of the partially distended bladder. IMPRESSION: Exam limitations due to large body habitus. No obvious hydronephrosis. [facility], Workstation: [id number], 02/27/2025 9:24 PM
== END | disposition home or self-care (01) ==
LOC: RADUSWWP 14:47
PROVIDERS: ATTEND Internal Medicine
DX: N18.32 Chronic kidney disease, stage 3b (principal)
CPT/HCPCS: 76770

== ENCOUNTER → 2025-03-21 | Outpatient (CLI) | payer MEDICARE ==
--- NOTE | 2025-03-21 13:30 | CT ---
EXAMINATION TYPE: CT chest wo con DATE OF EXAM: 03/21/2025 COMPARISON: CT chest abdomen and pelvis dated 01/14/2024 CLINICAL INDICATION: Female, 70 years old with history of R91.8 OTHER NONSPECIFIC ABNORMAL FINDING OF LUNG F; PHH, Hx lung ca TECHNIQUE: CT scan of the thorax is performed without IV contrast. CT DLP: [address] CTDI: mGy Automated exposure control for dose reduction was used. FINDINGS: There are stable postsurgical changes involving the left upper lobe. There is no suspicious lung mass or nodule. There is no airspace consolidation or abnormal interstitial density. There is no pleural effusion or pneumothorax. Great vessels and chest are normal. No mediastinal, hilar or axillary adenopathy. Limited scanning through the upper abdomen reveals no gross abnormality. There are no focal osseous lesions. IMPRESSION: 1. No evidence of recurrent or metastatic disease. 2. Stable postsurgical changes in the left upper lobe [facility], , 03/21/2025 1:28 PM
== END | disposition home or self-care (01) ==
LOC: RADCTMAIN 12:33
PROVIDERS: ATTEND Internal Medicine
DX: R91.8 Other nonspecific abnormal finding of lung field (principal); Z98.890 Other specified postprocedural states
CPT/HCPCS: 71250

== ENCOUNTER → 2025-05-02 | Outpatient (CLI) | payer MEDICARE ==
[2025-05-02 15:22] LABS: ALT 24 U/L (8-44); AST 22 U/L (13-35); Cholesterol 104.00 mg/dL (0.00-200.00); HDL Cholesterol 31.20 mg/dL (40.00-60.00); LDL Cholesterol,Calculated 24.0 mg/dL (0.0-131.0); Triglycerides 244.00 mg/dL (0.00-149.00); VLDL Calculation 48.80 mg/dL (5.00-40.00)
== END | disposition home or self-care (01) ==
LOC: LABWHC1 10:49
PROVIDERS: ATTEND Internal Medicine Cardiovascular Disease
DX: E78.2 Mixed hyperlipidemia (principal)
CPT/HCPCS: 36415; 80061; 84450; 84460